=== PATIENT | female | born 1995 | race African-American/Black ===

== ENCOUNTER 2016-06-07 20:35 | Emergency (ER) | payer SELFPAY ==
[2016-06-07 21:01] LABS: Hematocrit 31.7 % (36.0-47.0)
--- NOTE | 2016-06-07 22:27 | ERRECORD ---
[facility] EMERGENCY RECORD HPI ABDOMINAL PAIN (20:47 BPIC) CHIEF COMPLAINTS: Patient presents for evaluation of abdominal pain. HISTORIAN: History provided by patient, pt with chronic abdominal pain who recently had a "stomach flu" since then she has been alternating between diarrhea and constipation and states that her stool now is mostly blood. mild abdominal cramping. no vomiting currently. ROS (20:48 BPIC) CONSTITUTIONAL: Negative constitutional review of systems. EYES: Negative eye review of systems. ENT: Negative ears, nose, throat review of systems. CARDIOVASCULAR: Negative cardiovascular review of systems. RESPIRATORY: Negative respiratory review of systems. GI: Historian reports abdominal pain, reports hematochezia. MUSCULOSKELETAL: Negative musculoskeletal review of systems. SKIN: Negative skin review of systems. PSYCHIATRIC: Negative psychiatric review of systems. NOTES: All other ROS is negative except as listed in HPI. PAST MEDICAL HISTORY MEDICAL HISTORY: Past medical history includes pulmonary disease, chronic bronchitis. Past medical history includes hematological history, iron deficiency anemia,. Renal problems with surgery done at 8 months of age (bladder was on outside when I was born). Has frequent UTIs. One with delivery. Reviewed with patient 06/07/16. (20:50 LKRC) FEMALE SURGICAL HISTORY: Surgical history of section, Date of surgery 2012. Bladder reconstruction surgery at 8 months old. Reviewed with patient 06/07/16. (20:50 LKRC) PSYCHIATRIC HISTORY: Psychiatric history includes, anxiety, depression. (20:50 LKRC) SOCIAL HISTORY: Patient denies alcohol use, Patient denies drug use, Patient has no smoking history, Lives at home, with family. (20:50 LKRC) NOTES: I have reviewed and agree with the PMH/PSxH/FamHx/SocHx obtained by the nurse. (20:48 BPIC) KNOWN ALLERGIES Benadryl: Source: Patient, - CAUSES ANXIETY, FEELS LIKE SHE CAN'T BREATHE No Known Drug Allergies (Unconfirmed) CURRENT MEDICATIONS PROzac: CAPSULE : Strength - 20 mg : ORAL Patient Dose: 20 mg Oral once a day. (20:45 LKRC) calcium: &a-1R&a+25V*p+0X*c6517V*c202B*c15G*c2P*p-0X&a-25V&a+1R Name: Lou Olmos : 1995 F20 MedRec: [id number] AcctNum: [id number] Prepared: SunJun 08, 2016 03:39 by Interface Page 1 of 3 pMD [facility] EMERGENCY RECORD TABLET : Strength - 150 mg : ORAL Patient Dose: UNK Oral once a day.OTC. (20:45 LK) iron: TABLET : Strength - 325 mg (65 mg iron) : ORAL Patient Dose: UNK Oral once a day.OTC. (20:46 LKRC) albuterol: AEROSOL (GRAM) : Strength - 90 mcg : INHALATION Patient Dose: 2 puff(s) Inhaler As Needed. (20:46 LK) VITAL SIGNS VITAL SIGNS: BP: 122/73, Pulse: 95, Resp: 16, Temp: 97.9 (Oral), Pain: 8 (Constant), O2 sat: 100 on Room Air, Time: 06/07/2016 20:42. (20:42 LK) BP: 118/71, Pulse: 85, Resp: 18, Temp: 98.1 (Oral), Pain: 8, O2 sat: 100 on Room Air, Time: 06/07/2016 21:20. (21:20 DOEC) PHYSICAL EXAM (20:48 BPIC) CONSTITUTIONAL: Vital signs reviewed, Patient afebrile, Pulse normal, Blood pressure normal, Respiratory rate normal, Patient appears non toxic, Patient appears pain free, Patient alert and oriented to person, place and time. HEAD: Head exam included findings of head atraumatic, normocephalic. EYES: Eye exam included findings of eyelids normal to inspection, Pupils equally round and reactive to light, Extraocular muscles intact. ENT: ENT exam normal. NECK: Neck exam included findings of normal range of motion, Trachea midline. RESPIRATORY CHEST: Respiratory exam included findings of no respiratory distress, Breath sounds clear. CARDIOVASCULAR: Cardiovascular exam included findings of heart rate regular rate and rhythm, Heart sounds normal. NEURO: Neuro exam findings include patient oriented to person, place and time, Speech normal. PSYCHIATRIC: Psychiatric exam included findings of patient oriented to person place and time, Normal affect. DOCTOR NOTES TEXT: H/H ordered. if this is normal, will give gi consult for hematochezia. I discussed the diagnosis with the patient prior to discharge. All questions were answered. There is no indication for admission currently and the patient will follow up with his primary care physician. Any pertinent labs or imaging was reviewed and dicussed with the patient. If any new or emergent symptoms occur, the patient will return to the emergency department. (20:49 BPIC) hgb 9.3; previous hgb in system range from 9.5 to 11. VSS plan to dc with gi or pcp follow up. (21:10 BPIC) &a-1R&a+25V*p+0X*b2389O*c202B*c15G*c2P*p-0X&a-25V&a+1R Name: Lou Olmos : 1995 F20 MedRec: [id number] AcctNum: [id number] Prepared: SunJun 08, 2016 03:39 by Interface Page 2 of 3 pMD [facility] EMERGENCY RECORD PROBLEM LIST No recorded problems DIAGNOSIS (21:09 BPIC) FINAL: PRIMARY: chronic anemia, ADDITIONAL: hematochezia. PRESCRIPTION No recorded prescriptions DISPOSITION PATIENT: Disposition Type: Discharge, Disposition: *Discharge Home, Condition: Good. (21:09 BPIC) Patient left the department. (21:21 DOEC) Fuentes: BPIC=MD Ally, Fam DOEC=BRIELLE Marcelino, Redd LKRC=BRIELLE Schafer, Lyndsay &a-1R&a+25V*p+0X*b6746C*c202B*c15G*c2P*p-0X&a-25V&a+1R Name: Lou Olmos Singh : 1995 F20 MedRec: [id number] AcctNum: [id number] Prepared: SunJun 08, 2016 03:39 by Interface Page 3 of 3 pMD MTDD
--- NOTE | 2016-06-07 22:35 | PICIS ---
[facility] EMERGENCY RECORD TRIAGE (SunJun 07, 2016 20:43 LKRC) TRIAGE NOTES: LARGE AMOUNTS OF RECTAL BLEEDING MULTIPLE TIMES TODAY. C/O CONSTANT LOWER ABD PAIN. (SunJun 07, 2016 20:43 LKRC) PATIENT: NAME: Lou Olmos, AGE: 20, GENDER: female, : Sat 1995, TIME OF GREET: SunJun 07, 2016 20:36, PREFERRED LANGUAGE: Andorran, ETHNICITY: Not or , ECODE BILLING MAP: [facility] ER, SSN: [id number], Zip Code: [address], PHONE: , , , PERSON ID: [id number], PCP: Mic Charles /Milla. (SunJun 07, 2016 20:43 LKRC) KG WEIGHT: 42.6 (est.). (20:51 LKRC) COMPLAINT: ABDOMINAL PAIN. (SunJun 07, 2016 20:43 LKRC) ADMISSION: URGENCY: 3 Urgent, ADMISSION SOURCE: Home, TRANSPORT: CAR, BED: ER -05. (SunJun 07, 2016 20:43 LKRC) ASSESSMENT: Symptoms began 05/30/2016. (20:50 LKRC) PAIN: Patient complains of pain described as, cramping, sharp, Location LOWER ABDOMEN, Pain is constant. (20:50 LKRC) IMMUNIZATIONS: Flu vaccine not up to date, Tetanus immunization up to date. (20:50 LK[facility]) SIRS SCORING: Heart Rate 55-109 (0), Temp range 96.8-101.1 (0), respiratory rate 12-24 (0), Mental Status altered: no (0). (20:50 LKRC) TRIAGE SCREENING: Patient denies suicidal ideation, Patient denies presence of domestic violence. (20:50 LKRC) LMP: Last menstrual period: 05/11/2015. (20:50 LK[facility]) TREATMENTS IN PROGRESS: Treatments given Prehospital: 400MG IBUPROFEN @ 16:00. (20:50 LKRC) PROVIDERS: TRIAGE NURSE: Lyndsay Schafer RN. (SunJun 07, 2016 20:43 LK[facility]) VITAL SIGNS: BP 122/73, Pulse 95, Resp 16, Temp 97.9, (Oral), Pain 8, (Constant), O2 Sat 100, on Room Air, Time 06/07/2016 20:42. (20:42 [facility]) PREVIOUS VISIT ALLERGIES: Benadryl. (SunJun 07, 2016 20:43 [facility]) Benadryl. (20:50 [facility]) KNOWN ALLERGIES Benadryl: Source: Patient, - CAUSES ANXIETY, FEELS LIKE SHE CAN'T BREATHE No Known Drug Allergies (Unconfirmed) CURRENT MEDICATIONS PROzac: CAPSULE : Strength - 20 mg : ORAL Patient Dose: 20 mg Oral once a day. (20:45 [facility]) calcium: TABLET : Strength - 150 mg : ORAL Patient Dose: UNK Oral once a day.OTC. (20:45 [facility]) iron: &a-1R&a+25V*p+0X*c7538B*c202B*c15G*c2P*p-0X&a-25V&a+1R Name: Lou Olmos Singh : 1995 F20 MedRec: [id number] AcctNum: [id number] Prepared: SunJun 07, 2016 21:36 by Interface Page 1 of 5 pMD [facility] EMERGENCY RECORD TABLET : Strength - 325 mg (65 mg iron) : ORAL Patient Dose: UNK Oral once a day.OTC. (20:46 [facility]) albuterol: AEROSOL (GRAM) : Strength - 90 mcg : INHALATION Patient Dose: 2 puff(s) Inhaler As Needed. (20:46 [facility]) VITAL SIGNS VITAL SIGNS: BP: 122/73, Pulse: 95, Resp: 16, Temp: 97.9 (Oral), Pain: 8 (Constant), O2 sat: 100 on Room Air, Time: 06/07/2016 20:42. (20:42 [facility]) BP: 118/71, Pulse: 85, Resp: 18, Temp: 98.1 (Oral), Pain: 8, O2 sat: 100 on Room Air, Time: 06/07/2016 21:20. (21:20 DOEC) NURSING ASSESSMENT: ABDOMEN (20:45 [facility]) CONSTITUTIONAL: Complex assessment performed, Patient arrives ambulatory, Gait steady, History obtained from patient, Patient cooperative, Patient alert, Oriented to person, place and time, Skin warm, Skin dry, Skin normal in color, Mucous membranes pink, Mucous membranes moist, Patient is well-groomed, Patient complains of ABD CRAMPING/RECTAL BLEEDING. PAIN: cramping pain, sharp pain, to the left lower quadrant, to the right lower quadrant, Onset of pain 05/30/2016, constant, on a scale 0-10 patient rates pain as 8. ABDOMEN: Abdomen assessment findings include abdomen symmetrical, no discolorations, Abdomen soft, tender, to the left lower quadrant, to the right lower quadrant, no associated nausea, no associated vomiting, Associated with diarrhea, Associated with constipation, Notes: REPORTS ALTERNATING BETWEEN DIARRHEA AND CONSTIPATION. BEGAN PASSING LARGE AMOUNTS OF BLOOD WITH STOOL APPROX 1 WEEK AGO. STATES IT STARTED BLACK IN COLOR BUT IS NOW DARK RED IN COLOR. LMP: First day last menstrual period, Last period started on 05/11/2016 20:55. NURSING PROCEDURE: DISCHARGE NOTE (21:20 DOEC) DISCHARGE: Patient discharged to home, ambulating without assistance, driving self, unaccompanied, Summary of Care printed/ provided, Patient requested and was provided an electronic copy of Discharge Instructions, Transition record given to patient, Discharge instructions given to patient, Patient treated and evaluated by physician, Notes: Pt verbalized understanding of discharge instructions. Denied any questions. Pt ambulatory to discharge desk. VSS. NAD. BELONGINGS: Belongings and valuables with patient at time of discharge include:, Belongings remain with patient, Valuables remain with patient. NURSING PROCEDURE: LAB DRAW (21:00 [facility]) LAB DRAW: Lab draw indicated for obtaining specimens for &a-1R&a+25V*p+0X*k3720C*c202B*c15G*c2P*p-0X&a-25V&a+1R Name: Lou Olmos : 1995 F20 MedRec: [id number] AcctNum: [id number] Prepared: SunJun 07, 2016 21:36 by Interface Page 2 of 5 pMD [facility] EMERGENCY RECORD evaluation, by venipuncture, from right antecubital, in one attempt, Lab specimens labeled in the presence of the patient and sent to lab, Notes: DRAWN BY BRIELLE MACIAS. FOLLOW-UP: After procedure, dressing applied to site, After procedure, no swelling at site, After procedure, no active bleeding from site. ORDER DETAILS Order Name: Hemoglobin & Hematocrit, Status: Active, Time: 20:47 06/07/2016, User: [facility], - Ordered for: MD Canales Bryan, - Entered by: MD Canales Bryan - SunJun 07, 2016 20:47, - Quantity: 1. HPI ABDOMINAL PAIN (20:47 BPIC) CHIEF COMPLAINTS: Patient presents for evaluation of abdominal pain. HISTORIAN: History provided by patient, pt with chronic abdominal pain who recently had a "stomach flu" since then she has been alternating between diarrhea and constipation and states that her stool now is mostly blood. mild abdominal cramping. no vomiting currently. ROS (20:48 BPIC) CONSTITUTIONAL: Negative constitutional review of systems. EYES: Negative eye review of systems. ENT: Negative ears, nose, throat review of systems. CARDIOVASCULAR: Negative cardiovascular review of systems. RESPIRATORY: Negative respiratory review of systems. GI: Historian reports abdominal pain, reports hematochezia. MUSCULOSKELETAL: Negative musculoskeletal review of systems. SKIN: Negative skin review of systems. PSYCHIATRIC: Negative psychiatric review of systems. NOTES: All other ROS is negative except as listed in HPI. PAST MEDICAL HISTORY MEDICAL HISTORY: Past medical history includes pulmonary disease, chronic bronchitis. Past medical history includes hematological history, iron deficiency anemia,. Renal problems with surgery done at 8 months of age (bladder was on outside when I was born). Has frequent UTIs. One with delivery. Reviewed with patient 06/07/16. (20:50 [facility]) FEMALE SURGICAL HISTORY: Surgical history of section, Date of surgery 2012. Bladder reconstruction surgery at 8 months old. Reviewed with patient 06/07/16. (20:50 [facility]) PSYCHIATRIC HISTORY: Psychiatric history includes, anxiety, depression. (20:50 [facility]) SOCIAL HISTORY: Patient denies alcohol use, Patient denies drug &a-1R&a+25V*p+0X*e6332B*c202B*c15G*c2P*p-0X&a-25V&a+1R Name: Lou Olmos Singh : 1995 F20 MedRec: [id number] AcctNum: [id number] Prepared: SunJun 07, 2016 21:36 by Interface Page 3 of 5 pMD [facility] EMERGENCY RECORD use, Patient has no smoking history, Lives at home, with family. (20:50 LK) NOTES: I have reviewed and agree with the PMH/PSxH/FamHx/SocHx obtained by the nurse. (20:48 BPIC) PHYSICAL EXAM (20:48 BPIC) CONSTITUTIONAL: Vital signs reviewed, Patient afebrile, Pulse normal, Blood pressure normal, Respiratory rate normal, Patient appears non toxic, Patient appears pain free, Patient alert and oriented to person, place and time. HEAD: Head exam included findings of head atraumatic, normocephalic. EYES: Eye exam included findings of eyelids normal to inspection, Pupils equally round and reactive to light, Extraocular muscles intact. ENT: ENT exam normal. NECK: Neck exam included findings of normal range of motion, Trachea midline. RESPIRATORY CHEST: Respiratory exam included findings of no respiratory distress, Breath sounds clear. CARDIOVASCULAR: Cardiovascular exam included findings of heart rate regular rate and rhythm, Heart sounds normal. NEURO: Neuro exam findings include patient oriented to person, place and time, Speech normal. PSYCHIATRIC: Psychiatric exam included findings of patient oriented to person place and time, Normal affect. EVENTS TRANSFER: Triage to Emergency Emergency Room -05. (20:43 LK) Removed from Emergency Emergency Room -05. (21:21 DOEC) DOCTOR NOTES TEXT: H/H ordered. if this is normal, will give gi consult for hematochezia. I discussed the diagnosis with the patient prior to discharge. All questions were answered. There is no indication for admission currently and the patient will follow up with his primary care physician. Any pertinent labs or imaging was reviewed and dicussed with the patient. If any new or emergent symptoms occur, the patient will return to the emergency department. (20:49 BPIC) hgb 9.3; previous hgb in system range from 9.5 to 11. VSS plan to dc with gi or pcp follow up. (21:10 BPIC) PROBLEM LIST No recorded problems DIAGNOSIS (21:09 BPIC) FINAL: PRIMARY: chronic anemia, ADDITIONAL: hematochezia. &a-1R&a+25V*p+0X*l3974C*c202B*c15G*c2P*p-0X&a-25V&a+1R Name: Lou Olmos : 1995 1 MedRec: [id number] AcctNum: [id number] Prepared: SunJun 07, 2016 21:36 by Interface Page 4 of 5 pMD [facility] EMERGENCY RECORD DISPOSITION PATIENT: Disposition Type: Discharge, Disposition: *Discharge Home, Condition: Good. (21:09 BPIC) Patient left the department. (21:21 DOEC) INSTRUCTION (21:09 BPIC) DISCHARGE: HEMATOCHEZIA STABLE, ANEMIA, IRON DEFICIENCY (ADULT). FOLLOWUP: [facility], [facility], [address] [address], , Jana PAREDES, SARIAH, Gastroenterology, [address] [facility] [address], [facility] [address], [phone]. SPECIAL: Thank you for choosing [facility] Emergency Department for your care today! Please follow up with your primary doctor or a GI specialist in the next few days. Return to the emergency department with any other worsening or emergent symptoms. God bless you!. PRESCRIPTION No recorded prescriptions IMAGING (21:29 DOEC) *DISCHARGE INSTRUCTIONS RECEIPT: Image captured from scanner. *SUPPLY CHARGE SHEET: Image captured from scanner. RESULTS (21:07 BPIC) LABORATORY: Hemoglobin & Hematocrit Collection DT: SunJun 07, 2016 20:57, *Hemoglobin 9.3 - L g/dL, Range (12.0-16.0), *Hematocrit 31.7 - L %, Range (36.0-47.0). Fuentes: BPIC=MD Ally, Fam DOEC=BRIELLE Marcelino, Redd LKRC=BRIELLE Schafer, Lyndsay &a-1R&a+25V*p+0X*c6595T*c202B*c15G*c2P*p-0X&a-25V&a+1R Name: Lou Olmos : 1995 F20 MedRec: [id number] AcctNum: [id number] Prepared: SunJun 07, 2016 21:36 by Interface Page 5 of 5 pMD MTDD
== END 2016-06-07 21:20 | disposition home or self-care (01) ==
LOC: NAV ERS 20:35
DX: D53.9 Nutritional anemia, unspecified (principal); K92.1 Melena; F41.9 Anxiety disorder, unspecified; F32.9 Major depressive disorder, single episode, unspecified; J42 Unspecified chronic bronchitis
CPT/HCPCS: 85014; 85018; 99284

== ENCOUNTER 2016-06-12 18:18 | Emergency (ER) | payer SELFPAY ==
[2016-06-12 19:32] LABS: Bilirubin Negative (Negative); Blood, Urine Negative (Negative); Glucose, Urine (Dipstick) Negative (Negative); Ketone, Urine Negative (Negative); Nitrite Positive (Negative); Protein, Urine (Dipstick) Negative (Neg-Trace); Urobilinogen 0.2 mg/dL (0.2-1.0)
[2016-06-12 19:37] LABS: Bacteria/HPF 4+ HPF (None Seen); RBC/HPF None Seen HPF (0-3); Squamous Epithelial 0-3 HPF (0-3)
[2016-06-12 19:51] LABS: ALT (SGPT) 11 U/L (0-55); AST (SGOT) 17 U/L (5-34); Alkaline Phosphatase 50 U/L (40-150); Anion Gap 10 mmol/L (10-20); BUN (Urea Nitrogen) 8 mg/dL (7.0-18.7); Bilirubin, Total 0.2 mg/dL (0.2-1.2); Calc. Creatinine Clearance 0 mL/min (70-130); Calcium 8.2 mg/dL (7.8-10.44); Carbon Dioxide 25 mmol/L (22-29); Chloride 107 mmol/L (98-107); Estimated GFR-MDRD Greater than 90; Globulin 3.5 g/dL (2.4-3.5); Protein, Total 6.9 g/dL (6.0-8.3)
[2016-06-12 19:54] LABS: Hematocrit 28.6 % (36.0-47.0); Mean Platelet Volume 5.2 fL (7.4-10.4); Red Blood Cell (RBC) Count 4.14 mill/uL (4.20-5.40); White Blood Cell (WBC) Count 7.7 thou/uL (4.8-10.8)
[2016-06-12 19:55] LABS: Anisocytosis SLIGHT = 6-15 cells (100X) (0-5/hpf); Band 2 % (5-11); Elliptocytes SLIGHT = 2-5 cells (100X) (0-1/hpf); Hypochromia SLIGHT = 6-15 cells (100X) (0-5/hpf); Lipase 47 U/L (8-78); Microcytosis SLIGHT = 6-15 cells (100X) (0-5/hpf); Neutrophil 55 % (42-75); Ovalocytes SLIGHT = 2-5 cells (100X) (0-1/hpf); Target Cells SLIGHT = 2-5 cells (100X) (0-1/hpf)
[2016-06-12] MEDS ORDERED: Ketorolac Tromethamine 30 MG/ML VIAL ONE (20:16)
[2016-06-12] MEDS ORDERED: Cipro 250 MG TAB ONE (20:16)
--- NOTE | 2016-06-12 21:20 | ERRECORD ---
[facility] EMERGENCY RECORD HPI ABDOMINAL PAIN (20:17 JLOY) CHIEF COMPLAINTS: Patient presents for evaluation of abdominal pain, Patient presents for evaluation of Pt with 2 days of RLQ pain and dysuria. Pt reports urgency but innability to void x2 days. Pt also reports she is on her cycle currently. Her previous diarrhea has improved. HISTORIAN: History provided by patient. LOCATION FEMALE: Symptoms are localized, most severe in the right lower quadrant. QUALITY: Pain is dull in nature. TIME COURSE: Patient unable to describe onset of symptoms, Symptoms are constant. ASSOCIATED WITH FEMALE: No associated chills, No associated constipation, No associated diarrhea, No associated fever, No associated flank pain, Associated with groin pain, No associated hematemesis, No associated hematuria, No associated nausea, No associated inability to tolerate oral intake, Associated with urinary tract infection signs or symptoms, dysuria, hesitancy, No associated vomiting, Associated with vaginal bleeding. RELIEVED BY: Patient's condition relieved by nothing. EXACERBATED BY: Patient's condition exacerbated by nothing. ROS (20:20 JLOY) CONSTITUTIONAL: Historian denies chills, denies fever. EYES: Historian denies eye pain, denies eye redness, denies eye discharge. ENT: Historian denies rhinorrhea, denies sore throat. CARDIOVASCULAR: Historian denies chest pain. RESPIRATORY: Historian denies cough, denies shortness of breath. GI: Historian reports abdominal pain, denies diarrhea, denies nausea, denies vomiting. GENITOURINARY FEMALE: Historian reports dysuria, denies hematuria, reports hesitancy, reports urgency. NEUROLOGIC: Historian denies dizziness, denies headache. HEMO/LYMPHATIC: Historian reports anemia. PAST MEDICAL HISTORY MEDICAL HISTORY: Past medical history includes pulmonary disease, chronic bronchitis. Past medical history includes hematological history, iron deficiency anemia,. Renal problems with surgery done at 8 months of age (bladder was on outside when I was born). Has frequent UTIs. One with delivery. Reviewed with patient 06/12/16. (18:59 [facility]) FEMALE SURGICAL HISTORY: Surgical history of section, Date of surgery 2012. Bladder reconstruction surgery at 8 months old. Reviewed with patient 06/12/16. (18:59 [facility]) PSYCHIATRIC HISTORY: Psychiatric history includes, anxiety, depression. (18:59 LK) SOCIAL HISTORY: Patient denies alcohol use, Patient denies drug use, Patient has no smoking history, Lives at home, with &a-1R&a+25V*p+0X*l3604P*c202B*c15G*c2P*p-0X&a-25V&a+1R Name: Lou Olmos : 1995 F20 MedRec: [id number] AcctNum: [id number] Prepared: SunJun 12, 2016 23:47 by Interface Page 1 of 3 pMD [facility] EMERGENCY RECORD family. (18:59 [facility]) NOTES: Nursing records reviewed, Agree with nursing records. (20:22 [facility]) KNOWN ALLERGIES Benadryl: Source: Patient No Known Drug Allergies (Unconfirmed) CURRENT MEDICATIONS (18:56 [facility]) PROzac: CAPSULE : Strength - 20 mg : ORAL Patient Dose: 20 mg Oral once a day. calcium: TABLET : Strength - 150 mg : ORAL Patient Dose: UNK Oral once a day.OTC. iron: TABLET : Strength - 325 mg (65 mg iron) : ORAL Patient Dose: UNK Oral once a day.OTC. albuterol: AEROSOL (GRAM) : Strength - 90 mcg : INHALATION Patient Dose: 2 puff(s) Inhaler As Needed. VITAL SIGNS VITAL SIGNS: BP: 123/44, Pulse: 104, Resp: 16, Pain: 10 (Constant), O2 sat: 100 on Room Air, Time: 06/12/2016 18:54. (18:54 [facility]) Temp: 97.9 (Oral), Time: 06/12/2016 19:00. (19:00 [facility]) BP: 114/78, Pulse: 91, Resp: 16, Temp: 98.8 (Oral), Pain: 8, O2 sat: 98 on Room Air, Time: 06/12/2016 20:40. (20:40 [facility]) PHYSICAL EXAM (20:21 [facility]) CONSTITUTIONAL: Vital Signs Reviewed, Patient appears non toxic, Patient alert and oriented to person, place and time, pt curled up in the bed crying but able to move without any apparent increase in discomfort. EYES: Eye exam included findings of eyelids normal to inspection, Pupils equally round and reactive to light, Conjunctiva normal. ENT: Pharynx exam normal, Uvula exam normal, Tonsil exam normal, Mouth exam normal, mucous membranes moist. RESPIRATORY CHEST: Respiratory exam included findings of no respiratory distress, Breath sounds clear, No wheezing, No rales, No rhonchi, Chest exam included findings of chest movement symmetrical. CARDIOVASCULAR: Cardiovascular exam included findings of heart rate regular rate and rhythm, Heart sounds normal. ABDOMEN FEMALE: Abdominal exam included findings of abdomen tender, to the right lower quadrant, moderate intensity, Bowel sounds normal, Liver normal, Spleen normal, no distension, no peritoneal signs, no rigidity, no guarding, no rebound. BACK: Back exam included findings of normal inspection, no &a-1R&a+25V*p+0X*d9634T*c202B*c15G*c2P*p-0X&a-25V&a+1R Name: Lou Olmos : 1995 F20 MedRec: [id number] AcctNum: [id number] Prepared: SunJun 12, 2016 23:47 by Interface Page 2 of 3 pMD [facility] EMERGENCY RECORD costovertebral angle tenderness. UPPER EXTREMITY: Upper extremity exam included findings of inspection normal, Radial pulse normal, no cyanosis, no clubbing, no edema. LOWER EXTREMITY: Lower extremity exam included findings of inspection normal, no edema, no calf tenderness. NEURO: Medardo coma scale 15, Neuro exam findings include patient oriented to person, place and time, Speech normal. SKIN: Skin exam included findings of skin warm, dry, and normal in color, no rash. PSYCHIATRIC: Affect, tearful. MEDICATION ADMINISTRATION SUMMARY Drug Name: Toradol intramuscular, Dose Ordered: 30 mg, Route: Intramuscular, Status: Given, Time: 20:21 06/12/2016, Drug Name: ciprofloxacin HCl oral, Dose Ordered: 250 mg, Route: Oral, Status: Given, Time: 20:20 06/12/2016, Detailed record available in Medication Service section. PROBLEM LIST No recorded problems DIAGNOSIS (20:16 JL) FINAL: PRIMARY: UTI. PRESCRIPTION (20:12 JL) ciprofloxacin HCl oral: TABLET : 250 mg : ORAL : Quantity: 250 Unit: mg Route: ORAL Schedule: 2 times a day Dispense: 5 days May substitute. Refills: No Refills . NOTES: No Refills. DISPOSITION PATIENT: Disposition Type: Discharge, Disposition: *Discharge Home. (20:16 OLGA LIDIA) Patient left the department. (20:44 KARTIK) Fuentes: OLGA LIDIA=MD Kurt, Reggie VERDUGO=BRIELLE Schafer, Lyndsay &a-1R&a+25V*p+0X*b9331M*c202B*c15G*c2P*p-0X&a-25V&a+1R Name: Lou Olmos : 1995 F20 MedRec: [id number] AcctNum: [id number] Prepared: SunJun 12, 2016 23:47 by Interface Page 3 of 3 pMD MTDD
--- NOTE | 2016-06-12 21:25 | PICIS ---
[facility] EMERGENCY RECORD TRIAGE (18:56 LK) TRIAGE NOTES: SHARP, ACHING RLQ PAIN X2 DAYS, RADIATES INTO VAGINAL AREA. STATES SHE HAS NOT BEEN ABLE TO URINATE IN 2 DAYS. (18:56 LK) PATIENT: NAME: Lou Olmos, AGE: 20, GENDER: female, : Sat 1995, TIME OF GREET: SunJun 12, 2016 18:20, PREFERRED LANGUAGE: Kiswahili, ETHNICITY: Not or , ECODE BILLING MAP: [facility] ER, SSN: [id number], Zip Code: [address], PHONE: , , , PERSON ID: [id number], PCP: Mic Charles /Milla. (18:56 LK) KG WEIGHT: 42.6 (est.). (19:31 LKRC) COMPLAINT: RT SIDE PAIN ABD TO VAGINAL AREA,2 DAYS,WEAKNESS. (18:56 LK) ADMISSION: URGENCY: 4 Non Urgent, ADMISSION SOURCE: Home, TRANSPORT: CAR, BED: ER -05. (18:56 LKRC) ASSESSMENT: Symptoms began 06/10/2016. (18:59 LKRC) PAIN: Patient complains of pain described as, aching, sharp, on a scale 0-10 patient rates pain as 10, Location RIGHT GROIN, Pain is constant. (18:59 LKRC) IMMUNIZATIONS: Flu vaccine not up to date, Tetanus immunization up to date. (18:59 LKRC) SIRS SCORING: Heart Rate 55-109 (0), Temp range 96.8-101.1 (0), respiratory rate 12-24 (0), Mental Status altered: no (0). (18:59 LKRC) TRIAGE SCREENING: Patient denies suicidal ideation, Patient denies presence of domestic violence. (18:59 LKRC) LMP: Last menstrual period: 06/08/2016. (18:59 LKRC) TREATMENTS IN PROGRESS: Treatments given Prehospital: 2 IBUPROFEN @ 1600. (18:59 LKRC) PROVIDERS: TRIAGE NURSE: Lyndsay Schafer RN. (18:56 LK[facility]) VITAL SIGNS: BP 123/44, Pulse 104, Resp 16, Pain 10, (Constant), O2 Sat 100, on Room Air, Time 06/12/2016 18:54. (18:54 [facility]) PREVIOUS VISIT ALLERGIES: Benadryl. (18:56 [facility]) Benadryl. (18:59 [facility]) KNOWN ALLERGIES Benadryl: Source: Patient No Known Drug Allergies (Unconfirmed) CURRENT MEDICATIONS (18:56 [facility]) PROzac: CAPSULE : Strength - 20 mg : ORAL Patient Dose: 20 mg Oral once a day. calcium: TABLET : Strength - 150 mg : ORAL Patient Dose: UNK Oral once a day.OTC. iron: TABLET : Strength - 325 mg (65 mg iron) : ORAL &a-1R&a+25V*p+0X*t0716A*c202B*c15G*c2P*p-0X&a-25V&a+1R Name: Lou Olmos : 1995 F20 MedRec: [id number] AcctNum: [id number] Prepared: SunJun 12, 2016 23:53 by Interface Page 1 of 9 D [facility] EMERGENCY RECORD Patient Dose: UNK Oral once a day.OTC. albuterol: AEROSOL (GRAM) : Strength - 90 mcg : INHALATION Patient Dose: 2 puff(s) Inhaler As Needed. VITAL SIGNS VITAL SIGNS: BP: 123/44, Pulse: 104, Resp: 16, Pain: 10 (Constant), O2 sat: 100 on Room Air, Time: 06/12/2016 18:54. (18:54 [facility]) Temp: 97.9 (Oral), Time: 06/12/2016 19:00. (19:00 [facility]) BP: 114/78, Pulse: 91, Resp: 16, Temp: 98.8 (Oral), Pain: 8, O2 sat: 98 on Room Air, Time: 06/12/2016 20:40. (20:40 [facility]) NURSING ASSESSMENT: GENITOURINARY (19:00 [facility]) CONSTITUTIONAL: Complex assessment performed, Patient arrives ambulatory, Gait steady, History obtained from patient, Patient appears, in distress due to pain, Patient cooperative, Patient alert, Oriented to person, place and time, Skin warm, Skin dry, Skin normal in color, Mucous membranes pink, Mucous membranes moist, Patient is well-groomed, Patient complains of RLQ PAIN, RADIATES DOWN TO VAGINAL AREA. PAIN FEMALE: aching pain, sharp pain, to the right lower quadrant, RIGHT GROIN, Onset of pain 06/10/2016, constant, on a scale 0-10 patient rates pain as 10. GENITOURINARY FEMALE: Associated with urinary complaints, dysuria, PT STATES SHE HAS NOT BEEN ABLE TO VOID IN 2 DAYS, Associated with vaginal bleeding, small amount, Onset of bleedin06/08/2016, PT ON HER MENSTRUAL PERIOD BUT STATES BLEEDING LESS THAN NORMAL. ABDOMEN: Abdomen assessment findings include abdomen symmetrical, no discolorations, Abdomen soft, tender, to the right lower quadrant, Bowel sound normal, no associated nausea, no associated vomiting. NOTES: Notes: PT WAS SEEN IN ED LAST WEEK FOR BLEEDING WITH BM. STATES STILL HAVING BLEEDING FROM RECTUM. HAS APPT AT [place] ON SUNDAY. SAFETY: Cart/Stretcher in lowest position, Call light within reach, Hospital ID band on. NURSING PROCEDURE: DISCHARGE NOTE (20:44 [facility]) DISCHARGE: Patient discharged to home, ambulating without assistance, driving self, unaccompanied, Summary of Care printed/ provided, Discharge instructions given to patient, Simple or moderate discharge teaching performed, by BRIELLE Umana, discharge instructions and prescriptions reviewed with patient using teachback method. instructed pt not to stop taking antibiotic until prescription is complete, even if symptoms have resolved. be sure to drink plenty of fluids., Prescriptions given and instructions on &a-1R&a+25V*p+0X*s6428F*c202B*c15G*c2P*p-0X&a-25V&a+1R Name: Lou Olmos : 1995 F20 MedRec: [id number] AcctNum: [id number] Prepared: SunJun 12, 2016 23:53 by Interface Page 2 of 9 pMD [facility] RECORD side effects given, Name of prescription(s) given: CIPROFLOXACIN, Above person(s) verbalized understanding of discharge instructions and follow-up care. BELONGINGS: Belongings and valuables with patient upon arrival to the Emergency Department include:, Belongings and valuables with patient at time of discharge include:, Belongings remain with patient, Valuables remain with patient. NURSING PROCEDURE: LAB DRAW (19:27 [facility]) LAB DRAW: Lab draw indicated for obtaining specimens for evaluation, Initial lab draw performed, by venipuncture, from left antecubital, in one attempt, Lab specimens labeled in the presence of the patient and sent to lab, Notes: COLLECTED BY BRIELLE WRAE. FOLLOW-UP: After procedure, dressing applied to site, After procedure, no swelling at site, After procedure, no active bleeding from site. NURSING PROCEDURE: URINE COLLECTION (19:25 [facility]) URINE COLLECTION FEMALE: Urine collection indicated for patient unable to void, Urine collected by straight cath, using an 8fr catheter kit, in two attempts, output amount (mL) 40, urine yellow in color, and clear, Specimen collected, labeled in the presence of the patient and sent to lab. ORDER DETAILS Order Name: CATH STRAIGHT ED, Status: Done, Time: 19:23 06/12/2016, User: KARTIK, - Ordered for: MD Hicks Joshua, - Entered by: MD Hicks Joshua - Siri Jun 12, 2016 19:12, - Quantity: 1, Order Name: CBC with Differential, Status: Active, Time: 19:12 06/12/2016, User: OLGA LIDIA, - Ordered for: MD Hicks Joshua, - Entered by: MD Hicks Joshua - Siri Jun 12, 2016 19:12, - Quantity: 1, Order Name: Comprehensive Metabolic Panel, Status: Active, Time: 19:12 06/12/2016, User: OLGA LIDIA, - Ordered for: MD Hicks Joshua, - Entered by: MD Hicks Joshua - Mon Jun 12, 2016 19:12, - Quantity: 1, Order Name: Culture, Urine, Status: Active, Time: 20:17 06/12/2016, User: OLGA LIDIA, - Ordered for: MD Hicks Joshua, - Entered by: MD Hicks Joshua - Mon Jun 12, 2016 20:17, - Quantity: 1, Order Name: Lipase, Status: Active, Time: 19:12 06/12/2016, User: OLGA LIDIA, - Ordered for: MD Hicks Joshua, - Entered by: MD Hciks Joshua - Mon Jun 12, 2016 19:12, &a-1R&a+25V*p+0X*e3587R*c202B*c15G*c2P*p-0X&a-25V&a+1R Name: Lou Olmos : 1995 F20 MedRec: [id number] AcctNum: [id number] Prepared: SunJun 12, 2016 23:53 by Interface Page 3 of 9 D [facility] EMERGENCY RECORD - Quantity: 1, Order Name: Test, Serum (BHCG), Status: Active, Time: 19:12 06/12/2016, User: OLGA LIDIA, - Ordered for: MD Hicks Joshua, - Entered by: MD Hicks Joshua - SunJun 12, 2016 19:12, - Quantity: 1, Order Name: Urinalysis w/ Rflx Microscopic, Status: Active, Time: 19:12 06/12/2016, User: OLGA LIDIA, - Ordered for: MD Hicks Joshua, - Entered by: MD Hicks Joshua - SunJun 12, 2016 19:12, - Quantity: 1. MEDICATION ADMINISTRATION SUMMARY Drug Name: Toradol intramuscular, Dose Ordered: 30 mg, Route: Intramuscular, Status: Given, Time: 20:21 06/12/2016, Drug Name: ciprofloxacin HCl oral, Dose Ordered: 250 mg, Route: Oral, Status: Given, Time: 20:20 06/12/2016, Detailed record available in Medication Service section. MEDICATION SERVICE ciprofloxacin HCl oral: Order: ciprofloxacin HCl oral (ciprofloxacin HCl) - Dose: 250 mg : Oral Ordered by: Reggie Hicks MD Entered by: Reggie Hicks MD SunJun 12, 2016 20:11 , Acknowledged by: Lyndsay Schafer RN SunJun 12, 2016 20:15 Documented as given by: Lyndsay Schafer RN SunJun 12, 2016 20:20 Patient, Medication, Dose, Route and Time verified prior to administration. Amount given: 250MG, Site: Medication administered P.O., Patient appears Awake and alert- acceptable, Correct patient, time, route, dose and medication confirmed prior to administration, Patient advised of actions and side-effects prior to administration, Allergies confirmed and medications reviewed prior to administration. Toradol intramuscular: Order: Toradol intramuscular (ketorolac tromethamine) - Dose: 30 mg : Intramuscular Ordered by: Reggie Hicks MD Entered by: Reggie Hicks MD SunJun 12, 2016 20:14 , Acknowledged by: Lyndsay Schafer RN SunJun 12, 2016 20:15 Documented as given by: Lyndsay Schafer RN SunJun 12, 2016 20:21 Patient, Medication, Dose, Route and Time verified prior to administration. IM medication, Amount given: 30MG, Medication administered to right buttock, Patient appears Awake and alert- acceptable, Correct patient, time, route, dose and medication confirmed prior to administration, Patient advised of actions and side-effects prior to administration, Allergies confirmed and medications reviewed prior to administration. : Follow Up : No signs or symptoms of allergic reaction noted, Decreased pain, Site inspection shows, No swelling at &a-1R&a+25V*p+0X*n3207G*c202B*c15G*c2P*p-0X&a-25V&a+1R Name: Lou Olmos : 1995 F20 MedRec: [id number] AcctNum: [id number] Prepared: SunJun 12, 2016 23:53 by Interface Page 4 of 9 pMD [facility] EMERGENCY RECORD administration site, No drainage at administration site, No bleeding at site, No bruising noted at site. (20:40 [facility]) HPI ABDOMINAL PAIN (20:17 [facility]) CHIEF COMPLAINTS: Patient presents for evaluation of abdominal pain, Patient presents for evaluation of Pt with 2 days of RLQ pain and dysuria. Pt reports urgency but innability to void x2 days. Pt also reports she is on her cycle currently. Her previous diarrhea has improved. HISTORIAN: History provided by patient. LOCATION FEMALE: Symptoms are localized, most severe in the right lower quadrant. QUALITY: Pain is dull in nature. TIME COURSE: Patient unable to describe onset of symptoms, Symptoms are constant. ASSOCIATED WITH FEMALE: No associated chills, No associated constipation, No associated diarrhea, No associated fever, No associated flank pain, Associated with groin pain, No associated hematemesis, No associated hematuria, No associated nausea, No associated inability to tolerate oral intake, Associated with urinary tract infection signs or symptoms, dysuria, hesitancy, No associated vomiting, Associated with vaginal bleeding. RELIEVED BY: Patient's condition relieved by nothing. EXACERBATED BY: Patient's condition exacerbated by nothing. ROS (20:20 JL) CONSTITUTIONAL: Historian denies chills, denies fever. EYES: Historian denies eye pain, denies eye redness, denies eye discharge. ENT: Historian denies rhinorrhea, denies sore throat. CARDIOVASCULAR: Historian denies chest pain. RESPIRATORY: Historian denies cough, denies shortness of breath. GI: Historian reports abdominal pain, denies diarrhea, denies nausea, denies vomiting. GENITOURINARY FEMALE: Historian reports dysuria, denies hematuria, reports hesitancy, reports urgency. NEUROLOGIC: Historian denies dizziness, denies headache. HEMO/LYMPHATIC: Historian reports anemia. PAST MEDICAL HISTORY MEDICAL HISTORY: Past medical history includes pulmonary disease, chronic bronchitis. Past medical history includes hematological history, iron deficiency anemia,. Renal problems with surgery done at 8 months of age (bladder was on outside when I was born). Has frequent UTIs. One with delivery. Reviewed with patient 06/12/16. (18:59 [facility]) FEMALE SURGICAL HISTORY: Surgical history of section, Date of surgery 2012. Bladder reconstruction surgery at 8 months old. Reviewed with patient 06/12/16. (18:59 [facility]) PSYCHIATRIC HISTORY: Psychiatric history includes, anxiety, &a-1R&a+25V*p+0X*x9208K*c202B*c15G*c2P*p-0X&a-25V&a+1R Name: Lou Olmos : 1995 F20 MedRec: [id number] AcctNum: [id number] Prepared: SunJun 12, 2016 23:53 by Interface Page 5 of 9 pMD [facility] EMERGENCY RECORD depression. (18:59 [facility]) SOCIAL HISTORY: Patient denies alcohol use, Patient denies drug use, Patient has no smoking history, Lives at home, with family. (18:59 [facility]) NOTES: Nursing records reviewed, Agree with nursing records. (20:22 JLO[facility]) PHYSICAL EXAM (20:21 JL) CONSTITUTIONAL: Vital Signs Reviewed, Patient appears non toxic, Patient alert and oriented to person, place and time, pt curled up in the bed crying but able to move without any apparent increase in discomfort. EYES: Eye exam included findings of eyelids normal to inspection, Pupils equally round and reactive to light, Conjunctiva normal. ENT: Pharynx exam normal, Uvula exam normal, Tonsil exam normal, Mouth exam normal, mucous membranes moist. RESPIRATORY CHEST: Respiratory exam included findings of no respiratory distress, Breath sounds clear, No wheezing, No rales, No rhonchi, Chest exam included findings of chest movement symmetrical. CARDIOVASCULAR: Cardiovascular exam included findings of heart rate regular rate and rhythm, Heart sounds normal. ABDOMEN FEMALE: Abdominal exam included findings of abdomen tender, to the right lower quadrant, moderate intensity, Bowel sounds normal, Liver normal, Spleen normal, no distension, no peritoneal signs, no rigidity, no guarding, no rebound. BACK: Back exam included findings of normal inspection, no costovertebral angle tenderness. UPPER EXTREMITY: Upper extremity exam included findings of inspection normal, Radial pulse normal, no cyanosis, no clubbing, no edema. LOWER EXTREMITY: Lower extremity exam included findings of inspection normal, no edema, no calf tenderness. NEURO: Medardo coma scale 15, Neuro exam findings include patient oriented to person, place and time, Speech normal. SKIN: Skin exam included findings of skin warm, dry, and normal in color, no rash. PSYCHIATRIC: Affect, tearful. EVENTS TRANSFER: Triage to Emergency Emergency Room -05. (SunJun 12, 2016 18:56 [facility]) Removed from Emergency Emergency Room -05. (20:44 [facility]) PROBLEM LIST No recorded problems DIAGNOSIS (20:16 [facility]) FINAL: PRIMARY: UTI. &a-1R&a+25V*p+0X*y5321H*c202B*c15G*c2P*p-0X&a-25V&a+1R Name: Lou Olmos Singh : 1995 F20 MedRec: [id number] AcctNum: [id number] Prepared: SunJun 12, 2016 23:53 by Interface Page 6 of 9 pMD [facility] EMERGENCY RECORD DISPOSITION PATIENT: Disposition Type: Discharge, Disposition: *Discharge Home. (20:16 [facility]) Patient left the department. (20:44 [facility]) INSTRUCTION (20:17 [facility]) DISCHARGE: UTI CYSTITIS FEMALE ADULT. FOLLOWUP: [facility], /[facility], [address], [facility] [address], , Follow up with Primary Care Physician in 3-4 days. PRESCRIPTION (20:12 [facility]) ciprofloxacin HCl oral: TABLET : 250 mg : ORAL : Quantity: 250 Unit: mg Route: ORAL Schedule: 2 times a day Dispense: 5 days May substitute. Refills: No Refills . NOTES: No Refills. IMAGING (20:47 [facility]) *DISCHARGE INSTRUCTIONS RECEIPT: Image captured from scanner. *SUPPLY CHARGE SHEET: Image captured from scanner. ADMIN (23:40 [facility]) DIGITAL SIGNATURE: MD Hicks Joshua. RESULTS (20:03 [facility]) LABORATORY: Lipase Collection DT: SunJun 12, 2016 19:28, Lipase 47 U/L, Range (8-78). Comprehensive Metabolic Panel Collection DT: SunJun 12, 2016 19:28, Sodium 139 mmol/L, Range (136-145), *Potassium 3.3 - L mmol/L, Range (3.5-5.1), Chloride 107 mmol/L, Range (98-107), Carbon Dioxide 25 mmol/L, Range (22-29), Anion Gap 10 mmol/L, Range (10-20), BUN (Urea Nitrogen) 8 mg/dL, Range (7.0-18.7), Creatinine 0.83 mg/dL, Range (0.6-1.1), Estimated GFR-MDRD Greater than 90 , Reference Range for Estimated GFR: Greater than 90, mL/min/1.73 m2 NOTE: The MDRD equation has not been validated for use, with the elderly (over 70 years of age), women, patients with, serious comorbid condition or persons with extremes of body size, muscle, mass, or nutritional status. , Glucose 94 mg/dL, Range (70-105), Calcium 8.2 mg/dL, Range (7.8-10.44), Bilirubin, Total 0.2 mg/dL, Range (0.2-1.2), Protein, Total 6.9 g/dL, Range (6.0-8.3), NOTE: Plasma values are generally 0.3 to 0.5 g/dL higher &a-1R&a+25V*p+0X*w1653U*c202B*c15G*c2P*p-0X&a-25V&a+1R Name: Lou Olmos : 1995 F20 MedRec: [id number] AcctNum: [id number] Prepared: SunJun 12, 2016 23:53 by Interface Page 7 of 9 pMD [facility] EMERGENCY RECORD than serum values, due to the presence of fibrinogen. , *Albumin 3.4 - L g/dL, Range (3.5-5.0), Globulin 3.5 g/dL, Range (2.4-3.5), *Alb/Glob Ratio 1.0 - L g/dL, Range (1.2-2.2), Alkaline Phosphatase 50 U/L, Range (40-150), AST (SGOT) 17 U/L, Range (5-34), ALT (SGPT) 11 U/L, Range (0-55). CBC with Differential Collection DT: SunJun 12, 2016 19:28, White Blood Cell (WBC) Count 7.7 thou/uL, Range (4.8-10.8), *Red Blood Cell (RBC) Count 4.14 - L mill/uL, Range (4.20-5.40), *Hemoglobin 8.6 - L g/dL, Range (12.0-16.0), *Hematocrit 28.6 - L %, Range (36.0-47.0), *Mean Corpuscular Volume 69.2 - L fl, Range (81.0-99.0), *Mean Corpuscular Hemoglobin 20.8 - L pg, Range (27.0-31.0), *Mean Corpuscular HGB CONC 30.1 - L g/dL, Range (32.0-36.0), *RBC Distribution Width 16.1 - H %, Range (11.5-14.5), Platelet Count 347 thou/uL, Range (130-400), *Mean Platelet Volume 5.2 - L fL, Range (7.4-10.4), Neutrophil 55 %, Range (42-75), *Band 2 - L %, Range (5-11), Lymphocytes 27 %, Range (21-51), *Monocytes 11 - H %, Range (0-10), Eosinophils 4 %, Range (0-10), Basophils 1 %, Range (0-2), Anisocytosis SLIGHT = 6-15 cells (100X), Range (0-5/hpf), Microcytosis SLIGHT = 6-15 cells (100X), Range (0-5/hpf), Hypochromia SLIGHT = 6-15 cells (100X), Range (0-5/hpf), Target Cells SLIGHT = 2-5 cells (100X), Range (0-1/hpf), Ovalocytes SLIGHT = 2-5 cells (100X), Range (0-1/hpf), Elliptocytes SLIGHT = 2-5 cells (100X), Range (0-1/hpf), PLT Morphology Comment Appears Adequate . Test, Serum (BHCG) Collection DT: SunJun 12, 2016 19:28, BHCG - Serum NEGATIVE , Range (NEGATIVE), Method of sensitivity- Indeterminant: results should be repeated, after 48 hours. Positive: results may be detected as early as 4-5 days before a first missed menses. Elimination of BHCG-, Elimination following first trimester D&C: 29-44 Days , Elimination following term : 8-24 Days . Urine Microscopic Collection DT: SunJun 12, 2016 19:28, RBC/HPF None Seen HPF, Range (0-3), *WBC/HPF 4-6 - H HPF, Range (0-3), Squamous Epithelial 0-3 HPF, Range (0-3), *Bacteria/HPF 4+ - H HPF, Range (None Seen). &a-1R&a+25V*p+0X*v4952O*c202B*c15G*c2P*p-0X&a-25V&a+1R Name: Lou Olmos Singh : 1995 F20 MedRec: [id number] AcctNum: [id number] Prepared: SunJun 12, 2016 23:53 by Interface Page 8 of 9 pMD [facility] EM[facility]GENC[facility] RECORD Urinalysis w/ Rflx Microscopic Collection DT: SunJun 12, 2016 19:28, Color Yellow , Range (Yellow), Clarity Hazy , Range (Clear), Specific [place], Urine 1.015 , Range (1.005-1.030), pH, Urine 7.0 , Range (5.0-9.0), *Leukocyte Trace - H , Range (Negative), *Nitrite Positive - H , Range (Negative), Protein, Urine (Dipstick) Negative mg/dL, Range (Neg-Trace), Glucose, Urine (Dipstick) Negative mg/dL, Range (Negative), Ketone, Urine Negative mg/dL, Range (Negative), Urobilinogen 0.2 mg/dL, Range (0.2-1.0), Bilirubin Negative , Range (Negative), Blood, Urine Negative , Range (Negative). Fuentes: OLGA LIDIA=MD Kurt, Reggie GONZALESRC=BRIELLE Schafer, Lyndsay &a-1R&a+25V*p+0X*r3939A*c202B*c15G*c2P*p-0X&a-25V&a+1R Name: Lou Olmos Singh : 1995 F20 MedRec: [id number] AcctNum: [id number] Prepared: SunJun 12, 2016 23:53 by Interface Page 9 of 9 pMD [facility] MEDICATION RECONCILIATION You were seen in the Emergency Department on: SunJun 12, 2016 KNOWN ALLERGIES Benadryl: Source: Patient No Known Drug Allergies (Unconfirmed) MEDICATIONS GIVEN WHILE IN THE EMERGENCY DEPARTMENT ciprofloxacin HCl oral (ciprofloxacin HCl) - Dose: 250 milligram(s) : Oral Toradol intramuscular (ketorolac tromethamine) - Dose: 30 milligram(s) : Intramuscular HOME MEDICATIONS CONTINUE PRESCRIBED albuterol : AEROSOL (GRAM) : Strength - 90 mcg : INHALATION Continue as prescribed Patient had been takin puff(s) Inhaler As Needed. calcium : TABLET : Strength - 150 mg : ORAL Continue as prescribed Patient had been taking: UNK Oral once a day. Comment: OTC. iron : TABLET : Strength - 325 mg (65 mg iron) : ORAL Continue as prescribed Patient had been taking: UNK Oral once a day. Comment: OTC. PROzac : CAPSULE : Strength - 20 mg : ORAL Continue as prescribed Patient had been takin mg Oral once a day. PRESCRIPTIONS (1) &a-1R&a+25V*p+0X*u5353M*c202B*c15G*c2P*p-0X&a-25V&a+1R Name: Lou Olmos : 1995 F20 MedRec: [id number] AcctNum: [id number] Prepared: SunJun 12, 2016 23:53 by Interface pMD MTDD
== END 2016-06-12 20:44 | disposition home or self-care (01) ==
LOC: NAV ERS 18:18
DX: N39.0 Urinary tract infection, site not specified (principal); F32.9 Major depressive disorder, single episode, unspecified; F41.9 Anxiety disorder, unspecified
CPT/HCPCS: 51701; 80053; 81003; 81015; 83690; 84703; 85025; 87077; 87086; 87186; 96372; A4353; J1885

== ENCOUNTER 2016-07-04 18:14 | Emergency (ER) | payer OTHER, SELFPAY ==
--- NOTE | 2016-07-04 19:08 | ERRECORD ---
[facility] EMERGENCY RECORD HPI GENERAL (SunJul 05, 2016 00:40 AGRE) CHIEF COMPLAINT: Patient presents for evaluation of PATIENT LEFT WITHOUT TRIAGE. KNOWN ALLERGIES Benadryl (Unconfirmed): Source: Patient No Known Drug Allergies (Unconfirmed) CURRENT MEDICATIONS No recorded medications PROBLEM LIST No recorded problems DIAGNOSIS (18:57 JPAR) FINAL: PRIMARY: left without being triaged. PRESCRIPTION No recorded prescriptions DISPOSITION (18:57 JPAR) PATIENT: Disposition Type: Eloped, Disposition: Left Without Triage, Patient left the department. Fuentes: AGRE=MD Torres, Jerome JPAR=Todd, BRIELLE, Alejo &a-1R&a+25V*p+0X*t8602A*c202B*c15G*c2P*p-0X&a-25V&a+1R Name: Lou Olmos : 1995 F20 MedRec: [id number] AcctNum: [id number] Prepared: SunJul 05, 2016 00:46 by Interface Page 1 of 1 pMD MTDD
--- NOTE | 2016-07-04 19:10 | PICIS ---
[facility] EMERGENCY RECORD TRIAGE (SunJul 04, 2016 18:55 JPAR) PATIENT: NAME: Lou Olmos, AGE: 20, GENDER: female, : Sun1995, TIME OF GREET: SunJul 04, 2016 18:14, PREFERRED LANGUAGE: Romanian, RACE: Black or , ETHNICITY: Not or , ECODE BILLING MAP: [facility], SSN: [id number], Zip Code: [address], KG WEIGHT: 40.82, PHONE: , , , PERSON ID: [id number], PCP: [facility]. TRIAGE NOTES: left without triage. COMPLAINT: BACK PAIN,VAGINAL BLEEDING. ADMISSION: URGENCY: Left Before Triage, ADMISSION SOURCE: Home, TRANSPORT: Walk-in, BED: TRIAGE. PROVIDERS: TRIAGE NURSE: Alejo Brooks RN. PREVIOUS VISIT ALLERGIES: Benadryl. KNOWN ALLERGIES Benadryl (Unconfirmed): Source: Patient No Known Drug Allergies (Unconfirmed) CURRENT MEDICATIONS No recorded medications HPI GENERAL (SunJul 05, 2016 00:40 AGRE) CHIEF COMPLAINT: Patient presents for evaluation of PATIENT LEFT WITHOUT TRIAGE. EVENTS TRANSFER: Triage to Emergency Triage. (SunJul 04, 2016 18:55 JPAR) Removed from Emergency Triage. (18:57 JPAR) PROBLEM LIST No recorded problems DIAGNOSIS (18:57 JPAR) FINAL: PRIMARY: left without being triaged. DISPOSITION (18:57 JPAR) PATIENT: Disposition Type: Eloped, Disposition: Left Without Triage, Patient left the department. PRESCRIPTION No recorded prescriptions ADMIN (SunJul 05, 2016 00:40 AGRE) DIGITAL SIGNATURE: MD Macdonald Andrea. Fuentes: ALENA=MD Macdonald Andrea JPAR=BRIELLE Brooks, Alejo &leila-1R&a+25V*p+0X*[id number]*c202B*c15G*c2P*p-0X&a-25V&a+1R Name: Lou Olmos : 1995 F20 MedRec: [id number] AcctNum: [id number] Prepared: Wed Jul 05, 2016 00:53 by Interface Page 1 of 1 pMD DARRELL
== END 2016-07-04 18:55 | disposition home or self-care (01) ==
LOC: NAV ERS 18:14
DX: Z53.21 Procedure and treatment not carried out due to patient leaving prior to being seen by health care provider (principal)

== ENCOUNTER 2016-07-05 21:52 | Emergency (ER) | payer SELFPAY ==
[2016-07-05 22:23] LABS: Bilirubin Negative (Negative); Blood, Urine Large (Negative); Glucose, Urine (Dipstick) Negative (Negative); Ketone, Urine Negative (Negative); Nitrite Positive (Negative); Protein, Urine (Dipstick) 30 mg/dL (Neg-Trace); Urobilinogen 0.2 mg/dL (0.2-1.0)
[2016-07-05 22:29] LABS: Bacteria/HPF 3+ HPF (None Seen); WBC/HPF 21-50 HPF (0-3)
[2016-07-05] MEDS ORDERED: Sulfameth/Trimethoprim DS 800-160mg TAB ONE (22:30)
[2016-07-05] MEDS ORDERED: traMADol HCl 50 MG TAB ONE (22:30)
[2016-07-05] MEDS ORDERED: Ibuprofen 200 MG TAB ONE ×2 (22:30)
== END 2016-07-05 22:56 | disposition home or self-care (01) ==
LOC: NAV ERS 21:52
DX: N39.0 Urinary tract infection, site not specified (principal); N76.0 Acute vaginitis; F41.9 Anxiety disorder, unspecified; F32.9 Major depressive disorder, single episode, unspecified; Z79.899 Other long term (current) drug therapy
CPT/HCPCS: 81003; 81015; 81025; 99283

== ENCOUNTER 2016-07-15 22:08 | Emergency (ER) | payer SELFPAY ==
[2016-07-15] MEDS ORDERED: Ondansetron ODT 4 MG TAB ONE (22:24)
[2016-07-15] MEDS ORDERED: Ibuprofen 200 MG TAB ONE (22:24)
[2016-07-15] MEDS ORDERED: Acetaminophen 325 MG TAB ONE (23:09)
== END 2016-07-15 23:24 | disposition home or self-care (01) ==
LOC: NAV ERS 22:08
DX: B34.9 Viral infection, unspecified (principal); F41.9 Anxiety disorder, unspecified; F32.9 Major depressive disorder, single episode, unspecified; Z79.899 Other long term (current) drug therapy
CPT/HCPCS: 99283; Q0162

== ENCOUNTER 2016-08-10 19:25 | Emergency (ER) | payer SELFPAY ==
[2016-08-10 20:48] LABS: Bilirubin Negative (Negative); Blood, Urine Small (Negative); Clarity Clear (Clear); Glucose, Urine (Dipstick) Negative (Negative); Leukocyte Small (Negative); Nitrite Negative (Negative); Protein, Urine (Dipstick) Negative (Neg-Trace); Urobilinogen 0.2 mg/dL (0.2-1.0); pH, Urine 6.5 (5.0-9.0)
[2016-08-10 20:54] LABS: Pregu Control Bar Appear? YES (CONTROL BAR)
[2016-08-10 20:58] LABS: #Basophils 0.1 thou/uL (0.0-0.2); #Eosinphils 0.2 thou/uL (0.0-0.7); #Lymphocytes 2.7 thou/uL (1.20-3.40); #Monocytes 0.7 thou/uL (0.11-0.59); #Neutrophils 2.9 thou/uL (1.40-6.50); %Eosinophils 3.7 % (0.0-10.0); %Lymphocytes 40.8 % (21.0-51.0); %Monocytes 10.1 % (0.0-10.0); %Neutrophils 44.4 % (42.0-75.0); Hemoglobin 9.8 g/dL (12.0-16.0); Mean Corpuscular HGB CONC 29.4 g/dL (32.0-36.0); Mean Corpuscular Hemoglobin 19.8 pg (27.0-31.0); Mean Corpuscular Volume 67.4 fl (81.0-99.0); Mean Platelet Volume 6.7 fL (7.4-10.4); Platelet Count 416 thou/uL (130-400); RBC Distribution Width 15.2 % (11.5-14.5); Red Blood Cell (RBC) Count 4.93 mill/uL (4.20-5.40); White Blood Cell (WBC) Count 6.6 thou/uL (4.8-10.8)
[2016-08-10 21:01] LABS: Bacteria/HPF 2+ HPF (None Seen); RBC/HPF None Seen HPF (0-3); Squamous Epithelial 0-3 HPF (0-3)
== END 2016-08-10 21:26 | disposition home or self-care (01) ==
LOC: NAV ERS 19:25
DX: N30.90 Cystitis, unspecified without hematuria (principal); N93.8 Other specified abnormal uterine and vaginal bleeding; F41.9 Anxiety disorder, unspecified; F32.9 Major depressive disorder, single episode, unspecified
CPT/HCPCS: 81003; 81015; 81025; 85025; 99284; A4353

== ENCOUNTER 2016-08-16 23:48 | Emergency (ER) | payer SELFPAY ==
[2016-08-17 00:17] LABS: Bilirubin Negative (Negative); Blood, Urine Negative (Negative); Clarity Hazy (Clear); Glucose, Urine (Dipstick) Negative (Negative); Leukocyte Small (Negative); Nitrite Positive (Negative); Protein, Urine (Dipstick) 30 mg/dL (Neg-Trace); Specific Gravity, Urine 1.015 (1.005-1.030)
[2016-08-17] MEDS ORDERED: Ketorolac Tromethamine 30 MG/ML VIAL ONE (00:17)
[2016-08-17 00:20] LABS: Bacteria/HPF 2+ HPF (None Seen); RBC/HPF None Seen HPF (0-3)
[2016-08-17 00:22] LABS: Pregu Control Bar Appear? YES (CONTROL BAR); Specific Gravity 1.015 (1.002-1.036)
[2016-08-17] MEDS ORDERED: Cipro 250 MG TAB ONE (00:45)
[2016-08-17 17:38] LABS: Chlamydia by PCR Not Detected (NotDetected); GC by PCR Not Detected (NotDetected)
== END 2016-08-17 00:50 | disposition home or self-care (01) ==
LOC: NAV ERS 23:48
DX: N39.0 Urinary tract infection, site not specified (principal); F32.9 Major depressive disorder, single episode, unspecified; F41.9 Anxiety disorder, unspecified
CPT/HCPCS: 81001; 81025; 87077; 87086; 87186; 87491; 87591; 96372; J1885

== ENCOUNTER 2016-08-21 13:51 | Emergency (ER) | payer SELFPAY ==
[2016-08-21] MEDS ORDERED: Nitrofurantoin Macrocrystal 50 MG CAP ONE (14:22)
== END 2016-08-21 14:27 | disposition home or self-care (01) ==
LOC: NAV ERS 13:51
DX: N39.0 Urinary tract infection, site not specified (principal); F41.9 Anxiety disorder, unspecified; F32.9 Major depressive disorder, single episode, unspecified
CPT/HCPCS: 99283

== ENCOUNTER 2016-09-03 22:11 | Emergency (ER) | payer SELFPAY | END 2016-09-03 22:38 | disposition home or self-care (01) | LOC: NAV ERS 22:11 | DX: L73.9 Follicular disorder, unspecified (principal); F41.9 Anxiety disorder, unspecified; F32.9 Major depressive disorder, single episode, unspecified; Z79.899 Other long term (current) drug therapy | CPT/HCPCS: 99283 ==

== ENCOUNTER 2016-09-18 10:22 | Emergency (ER) | payer SELFPAY ==
[2016-09-18] MEDS ORDERED: Ibuprofen 200 MG TAB ONE (11:03)
== END 2016-09-18 11:46 | disposition home or self-care (01) ==
LOC: NAV ERS 10:22
DX: J02.9 Acute pharyngitis, unspecified (principal); F41.9 Anxiety disorder, unspecified; F32.9 Major depressive disorder, single episode, unspecified; Z79.899 Other long term (current) drug therapy
CPT/HCPCS: 87081; 87430; 99283

== ENCOUNTER 2016-09-30 15:13 | Emergency (ER) | payer OTHER, SELFPAY ==
[2016-09-30] MEDS ORDERED: Ondansetron HCl/PF 4 MG/2 ML Vial ONE (15:47)
[2016-09-30 15:57] LABS: Bilirubin Negative (Negative); Blood, Urine Negative (Negative); Clarity Clear (Clear); Glucose, Urine (Dipstick) Negative (Negative); Leukocyte Small (Negative); Nitrite Negative (Negative); Protein, Urine (Dipstick) Negative (Neg-Trace); Urobilinogen 0.2 mg/dL (0.2-1.0)
[2016-09-30 16:00] LABS: Pregnancy Test - Urine (BHCG) NEGATIVE (NEGATIVE); Pregu Control Bar Appear? YES (CONTROL BAR)
[2016-09-30 16:05] LABS: Bacteria/HPF Rare-Few HPF (None Seen); RBC/HPF None Seen HPF (0-3); Squamous Epithelial 0-3 HPF (0-3); WBC/HPF 0-3 HPF (0-3)
[2016-09-30 16:11] LABS: #Basophils 0.1 thou/uL (0.0-0.2); #Eosinphils 0.1 thou/uL (0.0-0.7); #Lymphocytes 2.9 thou/uL (1.20-3.40); #Monocytes 0.5 thou/uL (0.11-0.59); #Neutrophils 3.3 thou/uL (1.40-6.50); %Basophils 1.1 % (0.0-1.0); %Eosinophils 2.1 % (0.0-10.0); %Lymphocytes 41.8 % (21.0-51.0); Hemoglobin 9.1 g/dL (12.0-16.0); Mean Corpuscular HGB CONC 29.2 g/dL (32.0-36.0); Mean Corpuscular Hemoglobin 18.9 pg (27.0-31.0); Mean Corpuscular Volume 64.7 fl (81.0-99.0); Platelet Count 416 thou/uL (130-400); RBC Distribution Width 16.4 % (11.5-14.5); Red Blood Cell (RBC) Count 4.82 mill/uL (4.20-5.40); White Blood Cell (WBC) Count 6.9 thou/uL (4.8-10.8)
[2016-09-30 16:27] LABS: ALT (SGPT) 17 U/L (8-55); AST (SGOT) 42 U/L (5-34); Alkaline Phosphatase 48 U/L (40-150); Anion Gap 17 mmol/L (10-20); BUN (Urea Nitrogen) 14 mg/dL (7.0-18.7); Bilirubin, Total 0.4 mg/dL (0.2-1.2); Calc. Creatinine Clearance 0 mL/min (70-130); Calcium 9.1 mg/dL (7.8-10.44); Carbon Dioxide 18 mmol/L (22-29); Chloride 105 mmol/L (98-107); Estimated GFR-MDRD 86; Globulin 4.6 g/dL (2.4-3.5); Glucose 83 mg/dL (70-105); Potassium 3.7 mmol/L (3.5-5.1); Protein, Total 8.6 g/dL (6.0-8.3); Sodium 136 mmol/L (136-145)
[2016-09-30 16:29] LABS: MDiff Complete? YES; Microcytosis MODERATE=15-30 cells (100X) (0-5/hpf); Ovalocytes SLIGHT = 2-5 cells (100X) (0-1/hpf); Poikilocytosis SLIGHT = 6-15 cells (100X) (0-5/hpf); Schistocytes SLIGHT = 2-5 cells (100X) (0-1/hpf)
== END 2016-09-30 17:15 | disposition home or self-care (01) ==
LOC: NAV ERS 15:13
DX: R19.7 Diarrhea, unspecified (principal); D64.9 Anemia, unspecified; R11.2 Nausea with vomiting, unspecified; F41.9 Anxiety disorder, unspecified; F32.9 Major depressive disorder, single episode, unspecified; Z79.899 Other long term (current) drug therapy
CPT/HCPCS: 36415; 80053; 81003; 81015; 81025; 82274; 85025; 96374; J2405

== ENCOUNTER 2016-10-07 17:55 | Emergency (ER) | payer SELFPAY ==
--- NOTE | 2016-10-07 18:45 | RAD ---
EXAM: RIGHT ANKLE THREE VIEWS 10/07/16 HISTORY: Pain. swelling. Symptoms times several weeks. COMPARISON: None. FINDINGS: Ankle mortise is intact. Joint space is preserved. No fracture. No malalignment. No significant soft tissue swelling. IMPRESSION: Unremarkable right ankle three views. POS: [facility]
== END 2016-10-07 19:05 | disposition home or self-care (01) ==
LOC: NAV ERS 17:55
DX: M25.571 Pain in right ankle and joints of right foot (principal); F41.9 Anxiety disorder, unspecified; F32.9 Major depressive disorder, single episode, unspecified; Z79.899 Other long term (current) drug therapy

== ENCOUNTER 2016-10-18 00:58 | Emergency (ER) | payer SELFPAY ==
[2016-10-18] MEDS ORDERED: Ondansetron ODT 4 MG TAB ONE (01:10)
[2016-10-18 01:57] LABS: Bilirubin Negative (Negative); Blood, Urine Negative (Negative); Glucose, Urine (Dipstick) Negative (Negative); Leukocyte Large (Negative); Nitrite Positive (Negative); Protein, Urine (Dipstick) Negative (Neg-Trace); Specific Gravity, Urine 1.015 (1.005-1.030); Urobilinogen 0.2 mg/dL (0.2-1.0)
[2016-10-18 02:01] LABS: Clarity Hazy (Clear); Pregnancy Test - Urine (BHCG) NEGATIVE (NEGATIVE)
[2016-10-18 02:02] LABS: Pregu Control Bar Appear? YES (CONTROL BAR); Specific Gravity 1.015 (1.002-1.036)
[2016-10-18 02:04] LABS: Bacteria/HPF 3+ HPF (None Seen); RBC/HPF None Seen HPF (0-3)
[2016-10-18] MEDS ORDERED: Cephalexin 500 MG CAP ONE (02:24)
== END 2016-10-18 02:32 | disposition home or self-care (01) ==
LOC: NAV ERS 00:58
DX: N39.0 Urinary tract infection, site not specified (principal); F41.9 Anxiety disorder, unspecified; F32.9 Major depressive disorder, single episode, unspecified; Z79.899 Other long term (current) drug therapy
CPT/HCPCS: 81003; 81015; 81025; 87077; 87086; 87186; 87491; 87591; 99284; Q0162

== ENCOUNTER 2016-11-04 18:24 | Emergency (ER) | payer SELFPAY ==
[2016-11-04] MEDS ORDERED: Ondansetron ODT 4 MG TAB ONE (19:06)
== END 2016-11-04 19:27 | disposition home or self-care (01) ==
LOC: NAV ERS 18:24
DX: J02.9 Acute pharyngitis, unspecified (principal); D64.9 Anemia, unspecified; F41.9 Anxiety disorder, unspecified; F32.9 Major depressive disorder, single episode, unspecified; Z79.899 Other long term (current) drug therapy
CPT/HCPCS: 87081; 87430; 99283; Q0162

== ENCOUNTER 2016-11-10 18:17 | Emergency (ER) | payer SELFPAY ==
[2016-11-10] MEDS ORDERED: Acetaminophen 500 MG TAB ONE (19:11)
[2016-11-10] MEDS ORDERED: Sodium Chloride 0.9% 1,000 ML ONE (19:11)
[2016-11-10] MEDS ORDERED: Benzonatate 100 MG CAP ONE (19:26)
--- NOTE | 2016-11-10 19:30 | RAD ---
TWO VIEWS CHEST 11/10/16 HISTORY: Fever and cough. PA and lateral views of the chest is obtained. The lungs are well aerated. No evidence of active int rathoracic disease seen. No evidence of effusions, pneumonia or pneumothorax seen. IMPRESSION: Normal two views chest. POS: [facility]
[2016-11-10 19:31] LABS: Hemoglobin 8.5 g/dL (12.0-16.0); Mean Corpuscular HGB CONC 29.4 g/dL (32.0-36.0); Mean Corpuscular Hemoglobin 18.9 pg (27.0-31.0); Mean Corpuscular Volume 64.4 fl (81.0-99.0); Mean Platelet Volume 5.4 fL (7.4-10.4); Platelet Count 304 thou/uL (130-400); RBC Distribution Width 16.5 % (11.5-14.5); Red Blood Cell (RBC) Count 4.49 mill/uL (4.20-5.40); White Blood Cell (WBC) Count 8.9 thou/uL (4.8-10.8)
[2016-11-10 19:41] LABS: ALT (SGPT) Less than 6 U/L (8-55); AST (SGOT) 17 U/L (5-34); Albumin 3.7 g/dL (3.5-5.0); Alkaline Phosphatase 61 U/L (40-150); Anion Gap 16 mmol/L (10-20); BUN (Urea Nitrogen) 9 mg/dL (7.0-18.7); Bilirubin, Total 0.3 mg/dL (0.2-1.2); Calc. Creatinine Clearance 0 mL/min (70-130); Calcium 8.7 mg/dL (7.8-10.44); Carbon Dioxide 23 mmol/L (22-29); Chloride 101 mmol/L (98-107); Estimated GFR-MDRD 79; Globulin 4.3 g/dL (2.4-3.5); Glucose 85 mg/dL (70-105); Potassium 3.5 mmol/L (3.5-5.1); Sodium 136 mmol/L (136-145)
[2016-11-10 19:57] LABS: Band 2 % (5-11); Eosinophils 3 % (0-10); Helmet Cells SLIGHT = 2-5 cells (100X) (0-1/hpf); Lymphocytes 52 % (21-51); MDiff Complete? YES; Microcytosis MODERATE=15-30 cells (100X) (0-5/hpf); Monocytes 4 % (0-10); Neutrophil 38 % (42-75); Ovalocytes MODERATE= 6-15 cells (100X) (0-1/hpf); Poikilocytosis SLIGHT = 6-15 cells (100X) (0-5/hpf)
[2016-11-10] MEDS ORDERED: Azithromycin 250 MG TAB ONE (20:30)
== END 2016-11-10 20:40 | disposition home or self-care (01) ==
LOC: NAV ERS 18:17
DX: J06.9 Acute upper respiratory infection, unspecified (principal); D50.9 Iron deficiency anemia, unspecified; F41.9 Anxiety disorder, unspecified; F32.9 Major depressive disorder, single episode, unspecified; Z79.899 Other long term (current) drug therapy
CPT/HCPCS: 71020; 80053; 85025; 96360; J7050

== ENCOUNTER 2016-11-28 11:34 | Emergency (ER) | payer SELFPAY ==
[2016-11-28] MEDS ORDERED: Fluorescein Opthalmic Strip ONE (11:51)
[2016-11-28] MEDS ORDERED: Tetracaine HCl 0.5% Ophth Soln 2 ML Bottle ONE (11:51)
[2016-11-28 11:56] LABS: Bilirubin Negative (Negative); Blood, Urine Negative (Negative); Clarity Clear (Clear); Glucose, Urine (Dipstick) Negative (Negative); Leukocyte Small (Negative); Nitrite Positive (Negative); Protein, Urine (Dipstick) Negative (Neg-Trace); Specific Gravity, Urine 1.015 (1.005-1.030); Urobilinogen 0.2 mg/dL (0.2-1.0)
[2016-11-28 11:58] LABS: Pregnancy Test - Urine (BHCG) Negative (NEGATIVE); Pregu Control Background? CLEAR/WHITE (CLR/WHITE); Pregu Control Bar Appear? YES (CONTROL BAR); Specific Gravity 1.015 (1.002-1.036)
[2016-11-28 12:03] LABS: RBC/HPF None Seen HPF (0-3); Squamous Epithelial 0-3 HPF (0-3)
[2016-11-28 12:04] LABS: Bacteria/HPF 2+ HPF (None Seen); Other Microscopic Description NO
[2016-11-28] MEDS ORDERED: Cephalexin 250 MG CAP ONE (12:16)
[2016-11-28] MEDS ORDERED: Ibuprofen 200 MG TAB ONE (12:16)
[2016-11-28 21:58] LABS: Chlamydia by PCR Not Detected (NotDetected); GC by PCR Not Detected (NotDetected)
== END 2016-11-28 13:02 | disposition home or self-care (01) ==
LOC: NAV ERS 11:34
DX: N39.0 Urinary tract infection, site not specified (principal); D64.9 Anemia, unspecified; F41.9 Anxiety disorder, unspecified; F32.9 Major depressive disorder, single episode, unspecified; Z79.899 Other long term (current) drug therapy
CPT/HCPCS: 81003; 81015; 81025; 87077; 87086; 87186; 87480; 87491; 87510; 87591; 87660; 99284

== ENCOUNTER 2016-12-09 11:47 | Emergency (ER) | payer SELFPAY ==
[2016-12-09 12:02] LABS: Bilirubin Negative (Negative); Blood, Urine Trace (Negative); Clarity Clear (Clear); Glucose, Urine (Dipstick) Negative (Negative); Leukocyte Large (Negative); Nitrite Negative (Negative); Protein, Urine (Dipstick) Negative (Neg-Trace); Specific Gravity, Urine 1.015 (1.005-1.030); Urobilinogen 0.2 mg/dL (0.2-1.0)
[2016-12-09] MEDS ORDERED: Ondansetron ODT 4 MG TAB ONE (12:04)
[2016-12-09 12:09] LABS: Pregnancy Test - Urine (BHCG) Negative (NEGATIVE); Pregu Control Background? CLEAR/WHITE (CLR/WHITE); Pregu Control Bar Appear? YES (CONTROL BAR)
[2016-12-09 12:10] LABS: Specific Gravity 1.015 (1.002-1.036)
[2016-12-09 12:11] LABS: RBC/HPF 0-3 HPF (0-3); Squamous Epithelial 0-3 HPF (0-3); WBC/HPF 21-50 HPF (0-3)
[2016-12-09 12:12] LABS: Bacteria/HPF 2+ HPF (None Seen)
[2016-12-09] MEDS ORDERED: Cephalexin 250 MG CAP ONE (12:23)
== END 2016-12-09 12:27 | disposition home or self-care (01) ==
LOC: NAV ERS 11:47
DX: N39.0 Urinary tract infection, site not specified (principal); D64.9 Anemia, unspecified; F41.9 Anxiety disorder, unspecified; F31.9 Bipolar disorder, unspecified; Z79.899 Other long term (current) drug therapy
CPT/HCPCS: 81003; 81015; 81025; 87077; 87086; 99284; Q0162

== ENCOUNTER 2016-12-24 12:18 | Emergency (ER) | payer SELFPAY ==
[2016-12-24] MEDS ORDERED: Ibuprofen 200 MG TAB ONE (12:31)
== END 2016-12-24 12:46 | disposition home or self-care (01) ==
LOC: NAV ERS 12:18
DX: S30.1XXA Contusion of abdominal wall, initial encounter (principal); D64.9 Anemia, unspecified; F41.9 Anxiety disorder, unspecified; F32.9 Major depressive disorder, single episode, unspecified; Z79.899 Other long term (current) drug therapy; W50.0XXA Accidental hit or strike by another person, initial encounter
CPT/HCPCS: 99283

== ENCOUNTER 2017-01-01 23:34 | Emergency (ER) | payer MEDICAID, SELFPAY ==
[2017-01-01 23:51] LABS: Bilirubin Negative (Negative); Blood, Urine Large (Negative); Clarity Cloudy (Clear); Glucose, Urine (Dipstick) Negative (Negative); Leukocyte Large (Negative); Nitrite Positive (Negative); Protein, Urine (Dipstick) 30 mg/dL (Neg-Trace); Urobilinogen 0.2 mg/dL (0.2-1.0); pH, Urine 7.5 (5.0-9.0)
[2017-01-01 23:54] LABS: Bacteria/HPF 4+ HPF (None Seen); RBC/HPF GREATER THAN 50-TNTC HPF (0-3)
[2017-01-02] MEDS ORDERED: Ketorolac Tromethamine 60 MG/2 ML VIAL ONE (00:11)
[2017-01-02] MEDS ORDERED: cefTRIAXone\\ROCEPHIN 1 GM VIAL ONE (00:11)
[2017-01-02] MEDS ORDERED: Ondansetron ODT 4 MG TAB ONE (00:11)
[2017-01-02] MEDS ORDERED: Lidocaine 1% 20 ML MDV ONE (00:11)
[2017-01-02 00:27] LABS: Pregu Control Background? CLEAR/WHITE (CLR/WHITE); Pregu Control Bar Appear? YES (CONTROL BAR)
[2017-01-02 00:28] LABS: Pregnancy Test - Urine (BHCG) Negative (NEGATIVE)
[2017-01-04 22:47] LABS: Chlamydia by PCR Inconclusive (NotDetected); GC by PCR Inconclusive (NotDetected)
== END 2017-01-02 00:35 | disposition home or self-care (01) ==
LOC: NAV ERS 23:34
DX: N39.0 Urinary tract infection, site not specified (principal); D64.9 Anemia, unspecified; F32.9 Major depressive disorder, single episode, unspecified; F41.9 Anxiety disorder, unspecified; Z79.899 Other long term (current) drug therapy
CPT/HCPCS: 81003; 81015; 81025; 87077; 87086; 87186; 87491; 87591; 96372; J0696; J1885; J2001; Q0162

== ENCOUNTER 2017-01-08 19:09 | Emergency (ER) | payer MEDICAID | END 2017-01-08 19:35 | disposition home or self-care (01) | LOC: NAV ERS 19:09 | DX: O9A.211 Injury, poisoning and certain other consequences of external causes complicating pregnancy, first trimester (principal); S30.1XXA Contusion of abdominal wall, initial encounter; O99.011 Anemia complicating pregnancy, first trimester; O99.341 Other mental disorders complicating pregnancy, first trimester; F41.9 Anxiety disorder, unspecified; F32.9 Major depressive disorder, single episode, unspecified; Z3A.09 9 weeks gestation of pregnancy | CPT/HCPCS: 99283 ==

== ENCOUNTER 2017-01-13 21:00 | Emergency (ER) | payer MEDICAID, SELFPAY ==
[2017-01-13 21:18] LABS: Bilirubin Negative (Negative); Blood, Urine Negative (Negative); Clarity Clear (Clear); Glucose, Urine (Dipstick) Negative (Negative); Leukocyte Small (Negative); Nitrite Negative (Negative); Pregnancy Test - Urine (BHCG) POSITIVE (NEGATIVE); Pregu Control Background? CLEAR/WHITE (CLR/WHITE); Pregu Control Bar Appear? YES (CONTROL BAR); Protein, Urine (Dipstick) > or equal to 300 mg/dL (Neg-Trace); Specific Gravity 1.025 (1.002-1.036); Specific Gravity, Urine 1.025 (1.005-1.030)
[2017-01-13 21:19] LABS: Bacteria/HPF Rare-Few HPF (None Seen); RBC/HPF None Seen HPF (0-3)
[2017-01-13 21:39] LABS: #Eosinphils 0.2 thou/uL (0.0-0.7); #Lymphocytes 1.8 thou/uL (1.20-3.40); #Monocytes 0.3 thou/uL (0.11-0.59); #Neutrophils 2.6 thou/uL (1.40-6.50); %Basophils 0.6 % (0.0-1.0); %Eosinophils 4.2 % (0.0-10.0); %Lymphocytes 36.7 % (21.0-51.0); %Monocytes 6.6 % (0.0-10.0); Anisocytosis MODERATE=16-30 cells (100X) (0-5/hpf); Hemoglobin 7.7 g/dL (12.0-16.0); MDiff Complete? YES; Mean Corpuscular HGB CONC 29.7 g/dL (32.0-36.0); Mean Corpuscular Hemoglobin 19.6 pg (27.0-31.0); Mean Corpuscular Volume 66.2 fl (81.0-99.0); Mean Platelet Volume 5.6 fL (7.4-10.4); Microcytosis MODERATE=15-30 cells (100X) (0-5/hpf); PLT Morphology Comment Appears Adequate; Platelet Count 325 thou/uL (130-400); RBC Distribution Width 17.8 % (11.5-14.5); Red Blood Cell (RBC) Count 3.94 mill/uL (4.20-5.40)
[2017-01-13 21:55] LABS: ALT (SGPT) 12 U/L (8-55); AST (SGOT) 27 U/L (5-34); Albumin 3.4 g/dL (3.5-5.0); Alkaline Phosphatase 49 U/L (40-150); Anion Gap 9 mmol/L (10-20); BUN (Urea Nitrogen) 10 mg/dL (7.0-18.7); Bilirubin, Total 0.2 mg/dL (0.2-1.2); Calc. Creatinine Clearance 0 mL/min (70-130); Calcium 8.4 mg/dL (7.8-10.44); Carbon Dioxide 23 mmol/L (22-29); Chloride 109 mmol/L (98-107); Estimated GFR-MDRD Greater than 90; Globulin 3.6 g/dL (2.4-3.5); Glucose 91 mg/dL (70-105); Potassium 3.2 mmol/L (3.5-5.1); Sodium 138 mmol/L (136-145)
[2017-01-14 19:47] LABS: Chlamydia by PCR Not Detected (NotDetected); GC by PCR Not Detected (NotDetected)
== END 2017-01-13 23:02 | disposition home or self-care (01) ==
LOC: NAV ERS 21:00
DX: O26.851 Spotting complicating pregnancy, first trimester (principal); O99.341 Other mental disorders complicating pregnancy, first trimester; F41.9 Anxiety disorder, unspecified; F32.9 Major depressive disorder, single episode, unspecified; Z3A.10 10 weeks gestation of pregnancy
CPT/HCPCS: 36415; 80053; 81003; 81015; 81025; 84702; 85025; 86900; 86901; 87491; 87591; 99284

== ENCOUNTER 2017-03-29 16:50 | Emergency (ER) | payer OTHER ==
[2017-03-29] MEDS ORDERED: Sodium Chloride 0.9% 1,000 ML ONE (17:49)
[2017-03-29 18:23] LABS: #Eosinphils 0.1 thou/uL (0.0-0.7); #Lymphocytes 1.7 thou/uL (1.20-3.40); #Monocytes 0.8 thou/uL (0.11-0.59); #Neutrophils 11.2 thou/uL (1.40-6.50); %Basophils 0.3 % (0.0-1.0); %Eosinophils 0.8 % (0.0-10.0); %Lymphocytes 12.1 % (21.0-51.0); %Monocytes 5.9 % (0.0-10.0); Hemoglobin 8.2 g/dL (12.0-16.0); Mean Corpuscular HGB CONC 29.2 g/dL (32.0-36.0); Mean Corpuscular Hemoglobin 20.1 pg (27.0-31.0); Mean Corpuscular Volume 68.8 fl (81.0-99.0); Mean Platelet Volume 5.3 fL (7.4-10.4); Platelet Count 401 thou/uL (130-400); RBC Distribution Width 16.3 % (11.5-14.5); Red Blood Cell (RBC) Count 4.06 mill/uL (4.20-5.40); White Blood Cell (WBC) Count 13.8 thou/uL (4.8-10.8)
[2017-03-29 18:35] LABS: Bilirubin Negative (Negative); Blood, Urine Trace (Negative); Clarity Clear (Clear); Glucose, Urine (Dipstick) Negative (Negative); Leukocyte Small (Negative); Nitrite Negative (Negative); Protein, Urine (Dipstick) Negative (Neg-Trace); Urobilinogen 0.2 mg/dL (0.2-1.0); pH, Urine 7.5 (5.0-9.0)
[2017-03-29 18:40] LABS: ALT (SGPT) 14 U/L (8-55); AST (SGOT) 21 U/L (5-34); Albumin 3.5 g/dL (3.5-5.0); Alkaline Phosphatase 60 U/L (40-150); Anion Gap 15 mmol/L (10-20); BUN (Urea Nitrogen) 9 mg/dL (7.0-18.7); Bilirubin, Total 0.2 mg/dL (0.2-1.2); Calc. Creatinine Clearance 0 mL/min (70-130); Calcium 9.2 mg/dL (7.8-10.44); Carbon Dioxide 21 mmol/L (22-29); Chloride 104 mmol/L (98-107); Estimated GFR-MDRD Greater than 90; Globulin 4.9 g/dL (2.4-3.5); Glucose 84 mg/dL (70-105); Potassium 3.8 mmol/L (3.5-5.1); Protein, Total 8.4 g/dL (6.0-8.3); Sodium 136 mmol/L (136-145)
[2017-03-29 18:42] LABS: Bacteria/HPF 2+ HPF (None Seen); RBC/HPF 0-3 HPF (0-3)
[2017-03-29] MEDS ORDERED: Nitrofurantoin Macrocrystal 50 MG CAP ONE (19:22)
[2017-03-29 19:32] LABS: Hypochromia MODERATE=16-30 cells (100X) (0-5/hpf); MDiff Complete? YES; Microcytosis MODERATE=15-30 cells (100X) (0-5/hpf); PLT Morphology Comment Appears Adequate; Poikilocytosis SLIGHT = 6-15 cells (100X) (0-5/hpf); Reflex for Review?? NO
[2017-03-31 20:22] LABS: Chlamydia by PCR Not Detected (NotDetected); GC by PCR Not Detected (NotDetected)
== END 2017-03-29 19:31 | disposition home or self-care (01) ==
LOC: NAV ERS 16:50
DX: O23.42 Unspecified infection of urinary tract in pregnancy, second trimester (principal); O99.342 Other mental disorders complicating pregnancy, second trimester; F41.9 Anxiety disorder, unspecified; F32.9 Major depressive disorder, single episode, unspecified; Z79.899 Other long term (current) drug therapy; Z3A.16 16 weeks gestation of pregnancy
CPT/HCPCS: 80053; 81003; 81015; 85025; 87077; 87086; 87186; 87491; 87591; 96360; J7050

== ENCOUNTER 2017-05-06 19:57 | Emergency (ER) | payer OTHER ==
[2017-05-06 21:03] LABS: Wet Prep Clue Cells Clue Cells Absent (None Seen); Wet Prep Trichomonas Trichomonas Absent (None Seen)
[2017-05-06 21:04] LABS: Wet Prep Spermatozoa 2nd Revie Agree with result (None Seen)
== END 2017-05-06 21:38 | disposition home or self-care (01) ==
LOC: NAV ERS 19:57
DX: O99.89 Other specified diseases and conditions complicating pregnancy, childbirth and the puerperium (principal); N89.8 Other specified noninflammatory disorders of vagina; O99.512 Diseases of the respiratory system complicating pregnancy, second trimester; J02.9 Acute pharyngitis, unspecified; O99.342 Other mental disorders complicating pregnancy, second trimester; F41.9 Anxiety disorder, unspecified; F32.9 Major depressive disorder, single episode, unspecified; Z3A.21 21 weeks gestation of pregnancy
CPT/HCPCS: 87210; 99283

== ENCOUNTER 2017-05-14 13:48 | Emergency (ER) | payer OTHER ==
[2017-05-14 15:13] LABS: Bilirubin Negative (Negative); Blood, Urine Negative (Negative); Clarity Slightly Cloudy (Clear); Glucose, Urine (Dipstick) Negative (Negative); Leukocyte Small (Negative); Nitrite Positive (Negative); Protein, Urine (Dipstick) Negative (Neg-Trace); Specific Gravity, Urine 1.015 (1.005-1.030); Urobilinogen 0.2 mg/dL (0.2-1.0); pH, Urine 6.5 (5.0-9.0)
[2017-05-14 15:22] LABS: Bacteria/HPF 4+ HPF (None Seen); RBC/HPF 0-3 HPF (0-3); Squamous Epithelial 0-3 HPF (0-3)
[2017-05-14] MEDS ORDERED: Amoxicillin/Potassium Clav 875 MG TAB ONE (16:44)
--- NOTE | 2017-05-14 16:54 | ULT ---
LIMITED OBSTETRICAL ULTRASOUND: Date: 05-14-17 Comparison: 03-12-17 History: Contractions, pre-term labor. Evaluate cervical length. Technique: Multiplanar sonographic imaging of the gravid uterus obtained. FINDINGS: There is a single intrauterine gestation present demonstrating a vertex presentation. Cervical length is approximately 3.4 cm, within normal limits. heart rate is 147 beats/minute. Placenta is posteriorly with no evidence for previa or abruption. The laser cutter provides images lab elled right uterus suggesting a bicornuate uterus. This is not well assessed on this exam. IMPRESSION: Intrauterine gestation as detailed above. POS: [facility]
== END 2017-05-14 16:45 | disposition home or self-care (01) ==
LOC: NAV ERS 13:48
DX: O23.42 Unspecified infection of urinary tract in pregnancy, second trimester (principal); O99.342 Other mental disorders complicating pregnancy, second trimester; F41.9 Anxiety disorder, unspecified; F32.9 Major depressive disorder, single episode, unspecified; Z3A.22 22 weeks gestation of pregnancy; Z79.899 Other long term (current) drug therapy
CPT/HCPCS: 76815; 81003; 81015; 87077; 87086; 87186

== ENCOUNTER 2017-05-15 22:24 | Emergency (ER) | payer OTHER ==
[2017-05-15] MEDS ORDERED: Sodium Chloride 0.9% 1,000 ML ONE (23:08)
== END 2017-05-16 00:57 | disposition short-term general hospital (02) ==
LOC: NAV ERS 22:24
DX: O60.00 Preterm labor without delivery, unspecified trimester (principal); F41.9 Anxiety disorder, unspecified; F32.9 Major depressive disorder, single episode, unspecified; Z79.899 Other long term (current) drug therapy
CPT/HCPCS: 99284; J7050

== ENCOUNTER 2017-05-30 21:42 | Emergency (ER) | payer OTHER ==
[2017-05-30] MEDS ORDERED: Nitrazine Tape 1 ROLL ONE (22:02)
== END 2017-05-30 22:28 | disposition home or self-care (01) ==
LOC: NAV ERS 21:42
DX: O99.89 Other specified diseases and conditions complicating pregnancy, childbirth and the puerperium (principal); N89.8 Other specified noninflammatory disorders of vagina; O99.342 Other mental disorders complicating pregnancy, second trimester; F41.9 Anxiety disorder, unspecified; F32.9 Major depressive disorder, single episode, unspecified; Z3A.24 24 weeks gestation of pregnancy
CPT/HCPCS: 87210

== ENCOUNTER 2017-06-13 20:07 | Emergency (ER) | payer OTHER ==
[2017-06-13] MEDS ORDERED: Sodium Chloride 0.9% 1,000 ML ONE (21:32)
== END 2017-06-14 01:25 | disposition short-term general hospital (02) ==
LOC: NAV ERS 20:07
DX: O60.02 Preterm labor without delivery, second trimester (principal); O99.342 Other mental disorders complicating pregnancy, second trimester; F41.9 Anxiety disorder, unspecified; F32.9 Major depressive disorder, single episode, unspecified; Z3A.26 26 weeks gestation of pregnancy
CPT/HCPCS: 96360; J7050

== ENCOUNTER 2017-08-06 15:10 | Emergency (ER) | payer OTHER ==
[2017-08-06 16:27] LABS: Bilirubin Negative (Negative); Blood, Urine Small (Negative); Clarity Clear (Clear); Glucose, Urine (Dipstick) Negative (Negative); Leukocyte Small (Negative); Nitrite Positive (Negative); Protein, Urine (Dipstick) Negative (Neg-Trace); Specific Gravity, Urine 1.015 (1.005-1.030); Urobilinogen 0.2 mg/dL (0.2-1.0); pH, Urine 6.5 (5.0-9.0)
[2017-08-06 16:38] LABS: #Eosinphils 0.1 thou/uL (0.0-0.7); #Lymphocytes 1.5 thou/uL (1.20-3.40); #Monocytes 0.3 thou/uL (0.11-0.59); #Neutrophils 2.8 thou/uL (1.40-6.50); %Basophils 0.7 % (0.0-1.0); %Eosinophils 2.6 % (0.0-10.0); %Lymphocytes 32.2 % (21.0-51.0); %Monocytes 6.2 % (0.0-10.0); %Neutrophils 58.3 % (42.0-75.0); Hemoglobin 11.5 g/dL (12.0-16.0); Mean Corpuscular HGB CONC 29.4 g/dL (32.0-36.0); Mean Corpuscular Hemoglobin 20.5 pg (27.0-31.0); Mean Corpuscular Volume 69.9 fl (81.0-99.0); Mean Platelet Volume 6.1 fL (7.4-10.4); Platelet Count 372 thou/uL (130-400); RBC Distribution Width 19.5 % (11.5-14.5); Red Blood Cell (RBC) Count 5.61 mill/uL (4.20-5.40); White Blood Cell (WBC) Count 4.8 thou/uL (4.8-10.8)
[2017-08-06 16:42] LABS: Bacteria/HPF 3+ HPF (None Seen); RBC/HPF 0-3 HPF (0-3)
[2017-08-06 16:51] LABS: Anion Gap 12 mmol/L (10-20); BUN (Urea Nitrogen) 12 mg/dL (7.0-18.7); Calc. Creatinine Clearance 0 mL/min (70-130); Calcium 10.4 mg/dL (7.8-10.44); Carbon Dioxide 29 mmol/L (22-29); Chloride 104 mmol/L (98-107); Estimated GFR-MDRD Greater than 90; Glucose 86 mg/dL (70-105); Potassium 3.9 mmol/L (3.5-5.1); Sodium 141 mmol/L (136-145)
[2017-08-06 16:56] LABS: Anisocytosis MODERATE=16-30 cells (100X) (0-5/hpf); Hypochromia SLIGHT = 6-15 cells (100X) (0-5/hpf); MDiff Complete? YES; Microcytosis MODERATE=15-30 cells (100X) (0-5/hpf); PLT Morphology Comment Appears Adequate
[2017-08-06] MEDS ORDERED: cefTRIAXone\\ROCEPHIN 1 GM VIAL ONE (17:10)
[2017-08-06] MEDS ORDERED: Lidocaine 1% 20 ML MDV ONE (17:13)
== END 2017-08-06 17:35 | disposition home or self-care (01) ==
LOC: NAV ERS 15:10
DX: G89.18 Other acute postprocedural pain (principal); R10.9 Unspecified abdominal pain; N39.0 Urinary tract infection, site not specified; F41.9 Anxiety disorder, unspecified; F32.9 Major depressive disorder, single episode, unspecified; Z79.891 Long term (current) use of opiate analgesic; Z79.899 Other long term (current) drug therapy
CPT/HCPCS: 80048; 81003; 81015; 85025; 99283; J0696; J2001

== ENCOUNTER 2017-09-10 22:56 | Emergency (ER) | payer OTHER ==
[2017-09-10] MEDS ORDERED: Ketorolac Tromethamine 60 MG/2 ML VIAL ONE (23:17)
== END 2017-09-10 23:30 | disposition home or self-care (01) ==
LOC: NAV ERS 22:56
DX: R10.30 Lower abdominal pain, unspecified (principal); R51 Headache; F41.9 Anxiety disorder, unspecified; F32.9 Major depressive disorder, single episode, unspecified; Z79.891 Long term (current) use of opiate analgesic
CPT/HCPCS: 96372; J1885

== ENCOUNTER 2017-09-21 20:04 | Emergency (ER) | payer OTHER | END 2017-09-21 20:56 | disposition home or self-care (01) | LOC: NAV ERS 20:04 | DX: G89.18 Other acute postprocedural pain (principal); R10.9 Unspecified abdominal pain | CPT/HCPCS: 99283 ==

== ENCOUNTER 2017-10-03 21:33 | Emergency (ER) | payer OTHER ==
[2017-10-03] MEDS ORDERED: Acetaminophen/Codeine 30-300mg Tablet ONE (21:59)
== END 2017-10-03 22:00 | disposition home or self-care (01) ==
LOC: NAV ERS 21:33
DX: K03.81 Cracked tooth (principal); F41.9 Anxiety disorder, unspecified; F32.9 Major depressive disorder, single episode, unspecified
CPT/HCPCS: 99283

== ENCOUNTER 2017-11-09 20:09 | Emergency (ER) | payer OTHER ==
[2017-11-09] MEDS ORDERED: Ketorolac Tromethamine 60 MG/2 ML VIAL ONE (20:38)
== END 2017-11-09 20:52 | disposition home or self-care (01) ==
LOC: NAV ERS 20:09
DX: R10.9 Unspecified abdominal pain (principal); F41.9 Anxiety disorder, unspecified; F32.9 Major depressive disorder, single episode, unspecified; Z79.899 Other long term (current) drug therapy
CPT/HCPCS: 96372; J1885

== ENCOUNTER 2017-11-25 20:37 | Emergency (ER) | payer OTHER ==
[2017-11-25 21:20] LABS: BHCG - Serum Negative (NEGATIVE); Pregs Control Bar Appear? YES (CONTROL BAR)
[2017-11-25 21:22] LABS: Wet Prep Clue Cells Clue Cells Absent (None Seen); Wet Prep Trichomonas Trichomonas Absent (None Seen)
[2017-11-25 21:25] LABS: Anion Gap 14 mmol/L (10-20); BUN (Urea Nitrogen) 15 mg/dL (7.0-18.7); Calc. Creatinine Clearance 0 mL/min (70-130); Calcium 9.2 mg/dL (7.8-10.44); Carbon Dioxide 20 mmol/L (22-29); Chloride 108 mmol/L (98-107); Estimated GFR-MDRD Greater than 90; Glucose 98 mg/dL (70-105); Potassium 3.2 mmol/L (3.5-5.1); Sodium 139 mmol/L (136-145)
[2017-11-25 21:33] LABS: #Basophils 0.1 thou/uL (0.0-0.2); #Eosinphils 0.1 thou/uL (0.0-0.7); #Lymphocytes 2.8 thou/uL (1.20-3.40); #Monocytes 0.2 thou/uL (0.11-0.59); #Neutrophils 2.3 thou/uL (1.40-6.50); %Basophils 1.1 % (0.0-1.0); %Eosinophils 2.6 % (0.0-10.0); %Lymphocytes 49.8 % (21.0-51.0); %Monocytes 4.3 % (0.0-10.0); %Neutrophils 42.2 % (42.0-75.0); Hemoglobin 10.7 g/dL (12.0-16.0); Hypochromia MODERATE=16-30 cells (100X) (0-5/hpf); MDiff Complete? YES; Mean Corpuscular Hemoglobin 19.6 pg (27.0-31.0); Mean Corpuscular Volume 67.6 fL (78.0-98.0); Microcytosis MODERATE=15-30 cells (100X) (0-5/hpf); Ovalocytes SLIGHT = 2-5 cells (100X) (0-1/hpf); PLT Morphology Comment Appears Adequate; Platelet Count 342 thou/uL (130-400); RBC Distribution Width 14.5 % (11.5-14.5); Red Blood Cell (RBC) Count 5.46 mill/uL (4.20-5.40); White Blood Cell (WBC) Count 5.5 thou/uL (4.8-10.8)
[2017-11-25 21:35] LABS: Bilirubin Negative (Negative); Blood, Urine Large (Negative); Clarity Clear (Clear); Glucose, Urine (Dipstick) Negative (Negative); Leukocyte Trace (Negative); Nitrite Negative (Negative); Protein, Urine (Dipstick) Negative (Neg-Trace); Urobilinogen 0.2 mg/dL (0.2-1.0)
[2017-11-25 21:37] LABS: Bacteria/HPF Rare-Few HPF (None Seen)
[2017-11-25] MEDS ORDERED: Ketorolac Tromethamine 30 MG/ML VIAL ONE (21:38)
[2017-11-26 22:36] LABS: Chlamydia by PCR Not Detected (NotDetected); GC by PCR Not Detected (NotDetected)
== END 2017-11-25 22:02 | disposition home or self-care (01) ==
LOC: NAV ERS 20:37
DX: N93.8 Other specified abnormal uterine and vaginal bleeding (principal); D64.9 Anemia, unspecified; F41.9 Anxiety disorder, unspecified; F32.9 Major depressive disorder, single episode, unspecified; Z79.899 Other long term (current) drug therapy
CPT/HCPCS: 80048; 81003; 81015; 84703; 85025; 87210; 87491; 87591; 96374; J1885

== ENCOUNTER 2018-01-05 17:49 | Emergency (ER) | payer OTHER | END 2018-01-05 18:27 | disposition home or self-care (01) | LOC: NAV ERS 17:49 | DX: R04.2 Hemoptysis (principal); F41.9 Anxiety disorder, unspecified; F32.9 Major depressive disorder, single episode, unspecified; D64.9 Anemia, unspecified; Z79.891 Long term (current) use of opiate analgesic; Z79.899 Other long term (current) drug therapy | CPT/HCPCS: 99283 ==

== ENCOUNTER 2018-01-28 17:49 | Emergency (ER) | payer OTHER | END 2018-01-28 18:21 | disposition home or self-care (01) | LOC: NAV ERS 17:49 | DX: J20.9 Acute bronchitis, unspecified (principal); D50.0 Iron deficiency anemia secondary to blood loss (chronic); F41.9 Anxiety disorder, unspecified; F32.9 Major depressive disorder, single episode, unspecified; Z79.899 Other long term (current) drug therapy | CPT/HCPCS: 99282 ==

== ENCOUNTER 2018-04-25 20:53 | Emergency (ER) | payer OTHER ==
[2018-04-25 21:58] LABS: Bilirubin Negative (Negative); Blood, Urine Negative (Negative); Clarity Clear (Clear); Glucose, Urine (Dipstick) Negative (Negative); Leukocyte Moderate (Negative); Nitrite Positive (Negative); Protein, Urine (Dipstick) Trace mg/dL (Neg-Trace); Specific Gravity, Urine 1.015 (1.005-1.030); Urobilinogen 0.2 mg/dL (0.2-1.0); pH, Urine 6.5 (5.0-9.0)
[2018-04-25 22:15] LABS: Bacteria/HPF 3+ HPF (None Seen); RBC/HPF 0-3 HPF (0-3)
== END 2018-04-25 22:52 | disposition home or self-care (01) ==
LOC: NAV ERS 20:53
DX: N39.0 Urinary tract infection, site not specified (principal); J06.9 Acute upper respiratory infection, unspecified
CPT/HCPCS: 81003; 81015; 87804; 99284

== ENCOUNTER 2018-04-30 20:51 | Emergency (ER) | payer OTHER ==
[2018-04-30] MEDS ORDERED: predniSONE 20 MG TAB ONE (21:14)
--- NOTE | 2018-04-30 21:59 | RAD ---
PORTABLE CHEST: 04/30/18 HISTORY: Chest pain and cough. COMPARISON: 10/25/14 study. The heart size and mediastinum are within normal limits. The lungs are clear or infiltrates. No bony findings. IMPRESSION: No active intrathoracic disease. POS: [facility]
== END 2018-04-30 21:56 | disposition home or self-care (01) ==
LOC: NAV ERS 20:51
DX: J06.9 Acute upper respiratory infection, unspecified (principal); F41.9 Anxiety disorder, unspecified; F32.9 Major depressive disorder, single episode, unspecified
CPT/HCPCS: 71045; 87081; 87430; J7506; J7620

== ENCOUNTER 2018-05-14 21:28 | Emergency (ER) | payer OTHER ==
[2018-05-14 21:53] LABS: BHCG - Serum Negative (NEGATIVE); Pregs Control Bar Appear? YES (CONTROL BAR)
[2018-05-14 22:00] LABS: #Eosinphils 0.1 thou/uL (0.0-0.7); #Lymphocytes 1.8 thou/uL (1.20-3.40); #Monocytes 0.5 thou/uL (0.11-0.59); #Neutrophils 3.8 thou/uL (1.40-6.50); %Basophils 0.4 % (0.0-1.0); %Eosinophils 1.9 % (0.0-10.0); %Lymphocytes 28.5 % (21.0-51.0); %Monocytes 7.7 % (0.0-10.0); %Neutrophils 61.4 % (42.0-75.0); Hemoglobin 10.3 g/dL (12.0-16.0); Hypochromia MARKED = >30 cells (100X) (0-5/hpf); MDiff Complete? YES; Mean Corpuscular HGB CONC 29.8 g/dL (32.0-36.0); Mean Corpuscular Hemoglobin 20.1 pg (27.0-31.0); Mean Corpuscular Volume 67.5 fL (78.0-98.0); Mean Platelet Volume 7.2 fL (7.4-10.4); Microcytosis MARKED = >30 cells (100X) (0-5/hpf); Ovalocytes SLIGHT = 2-5 cells (100X) (0-1/hpf); PLT Morphology Comment Appears Adequate; Platelet Count 397 thou/uL (130-400); Red Blood Cell (RBC) Count 5.13 mill/uL (4.20-5.40); Target Cells SLIGHT = 2-5 cells (100X) (0-1/hpf); White Blood Cell (WBC) Count 6.1 thou/uL (4.8-10.8)
== END 2018-05-14 22:43 | disposition home or self-care (01) ==
LOC: NAV ERS 21:28
DX: N93.9 Abnormal uterine and vaginal bleeding, unspecified (principal); F41.9 Anxiety disorder, unspecified; F32.9 Major depressive disorder, single episode, unspecified; D50.9 Iron deficiency anemia, unspecified; Z79.51 Long term (current) use of inhaled steroids
CPT/HCPCS: 84703; 85025; 99284

== ENCOUNTER 2018-06-02 20:16 | Emergency (ER) | payer OTHER ==
[2018-06-02 21:10] LABS: Hemoglobin 11.2 g/dL (12.0-16.0); Hypochromia SLIGHT = 6-15 cells (100X) (0-5/hpf); Lymphocytes 31 % (21-51); MDiff Complete? YES; Mean Corpuscular HGB CONC 30.4 g/dL (32.0-36.0); Mean Corpuscular Hemoglobin 20.4 pg (27.0-31.0); Mean Corpuscular Volume 67.1 fL (78.0-98.0); Monocytes 4 % (0-10); Neutrophil 63 % (42-75); Ovalocytes SLIGHT = 2-5 cells (100X) (0-1/hpf); PLT Morphology Comment Appears Increased; Platelet Count 438 thou/uL (130-400); Reactive Lymphocytes 2 % (0-10); Red Blood Cell (RBC) Count 5.51 mill/uL (4.20-5.40); Sickle Cells SLIGHT = 1-5 cells (100X) (None Seen); White Blood Cell (WBC) Count 10.1 thou/uL (4.8-10.8)
[2018-06-02 21:19] LABS: INR-International Normal Ratio 1.1; PTT 33.5 SEC (22.9-36.1); Prothrombin Time 14.5 SEC (12.0-14.7)
[2018-06-02 21:20] LABS: D-Dimer Test 0.43 *mcg/mL (0.27-0.43)
[2018-06-02 21:23] LABS: Bilirubin Negative (Negative); Blood, Urine Moderate (Negative); Clarity Clear (Clear); Glucose, Urine (Dipstick) Negative (Negative); Leukocyte Small (Negative); Nitrite Positive (Negative); Protein, Urine (Dipstick) Negative (Neg-Trace); Specific Gravity, Urine 1.015 (1.005-1.030); Urobilinogen 0.2 mg/dL (0.2-1.0)
[2018-06-02 21:24] LABS: Pregnancy Test - Urine (BHCG) Negative (Negative); Pregu Control Background? CLEAR/WHITE (CLR/WHITE); Pregu Control Bar Appear? YES (CONTROL BAR); Specific Gravity 1.015 (1.002-1.036)
[2018-06-02 21:25] LABS: Anion Gap 17 mmol/L (10-20); BUN (Urea Nitrogen) 13 mg/dL (7.0-18.7); Calc. Creatinine Clearance 0 mL/min (70-130); Calcium 10.4 mg/dL (7.8-10.44); Carbon Dioxide 22 mmol/L (22-29); Chloride 103 mmol/L (98-107); Estimated GFR-MDRD Greater than 90; Glucose 93 mg/dL (70-105); Potassium 3.4 mmol/L (3.5-5.1); Sodium 139 mmol/L (136-145)
[2018-06-02 21:25] LABS: Bacteria/HPF 3+ HPF (None Seen); RBC/HPF 21-50 HPF (0-3)
[2018-06-02] MEDS ORDERED: Sodium Chloride 0.9% 1,000 ML ONE (21:34)
[2018-06-02] MEDS ORDERED: Acetaminophen 325 MG TAB ONE (21:34)
--- NOTE | 2018-06-02 21:34 | RAD ---
CHEST TWO VIEWS: INDICATIONS: Chest pain. COMPARISON: 04/30/2018 FINDINGS: The lungs are clear. The cardiac silhouette is normal in size. No effusion or pneumothorax. The os seous structures are intact. IMPRESSION: No focal consolidation. POS: [facility]
[2018-06-02] MEDS ORDERED: Ibuprofen 200 MG TAB ONE (23:33)
== END 2018-06-03 01:17 | disposition left against medical advice (07) ==
LOC: NAV ERS 20:16
DX: N93.9 Abnormal uterine and vaginal bleeding, unspecified (principal); R07.9 Chest pain, unspecified; F41.9 Anxiety disorder, unspecified; F32.9 Major depressive disorder, single episode, unspecified; Z79.891 Long term (current) use of opiate analgesic; Z79.899 Other long term (current) drug therapy; Z79.51 Long term (current) use of inhaled steroids
CPT/HCPCS: 36415; 71046; 80048; 81003; 81015; 81025; 84484; 85025; 85379; 85610; 85730; 87077; 87086; 87186; 93005; 94760; 96360; J7050

== ENCOUNTER 2018-06-08 11:37 | Emergency (ER) | payer OTHER ==
[2018-06-08] MEDS ORDERED: Ondansetron ODT 4 MG TAB ONE (13:20)
== END 2018-06-08 13:10 | disposition home or self-care (01) ==
LOC: NAV ERS 11:37
DX: R09.1 Pleurisy (principal); D50.0 Iron deficiency anemia secondary to blood loss (chronic); K21.9 Gastro-esophageal reflux disease without esophagitis; F41.9 Anxiety disorder, unspecified; Z79.891 Long term (current) use of opiate analgesic; Z79.899 Other long term (current) drug therapy
CPT/HCPCS: 93005; Q0162

== ENCOUNTER 2018-07-25 20:46 | Emergency (ER) | payer OTHER ==
[2018-07-25 21:19] LABS: Bilirubin Negative (Negative); Blood, Urine Trace (Negative); Glucose, Urine (Dipstick) Negative (Negative); Leukocyte Small (Negative); Nitrite Positive (Negative); Protein, Urine (Dipstick) 30 mg/dL (Neg-Trace); Specific Gravity, Urine 1.025 (1.005-1.030); Urobilinogen 0.2 mg/dL (0.2-1.0); pH, Urine 6.5 (5.0-9.0)
[2018-07-25 21:21] LABS: Clarity Hazy (Clear); RBC/HPF 0-3 HPF (0-3)
[2018-07-25 21:22] LABS: Bacteria/HPF 3+ HPF (None Seen); Pregnancy Test - Urine (BHCG) Negative (Negative); Squamous Epithelial 0-3 HPF (0-3)
[2018-07-25 21:23] LABS: Pregu Control Background? CLEAR/WHITE (CLR/WHITE); Pregu Control Bar Appear? YES (CONTROL BAR); Specific Gravity 1.025 (1.002-1.036)
[2018-07-25 21:28] LABS: #Eosinphils 0.2 thou/uL (0.0-0.7); #Lymphocytes 2.4 thou/uL (1.20-3.40); #Monocytes 0.2 thou/uL (0.11-0.59); #Neutrophils 2.7 thou/uL (1.40-6.50); %Basophils 0.9 % (0.0-1.0); %Eosinophils 3.7 % (0.0-10.0); %Monocytes 4.3 % (0.0-10.0); %Neutrophils 48.1 % (42.0-75.0); Mean Corpuscular HGB CONC 29.7 g/dL (32.0-36.0); Mean Corpuscular Hemoglobin 20.2 pg (27.0-31.0); Mean Corpuscular Volume 68.1 fL (78.0-98.0); Platelet Count 294 thou/uL (130-400); RBC Distribution Width 14.5 % (11.5-14.5); Red Blood Cell (RBC) Count 4.95 mill/uL (4.20-5.40); White Blood Cell (WBC) Count 5.5 thou/uL (4.8-10.8)
[2018-07-25 21:37] LABS: ALT (SGPT) 16 U/L (8-55); AST (SGOT) 23 U/L (5-34); Albumin 4.3 g/dL (3.5-5.0); Alkaline Phosphatase 58 U/L (40-150); Anion Gap 14 mmol/L (10-20); BUN (Urea Nitrogen) 17 mg/dL (7.0-18.7); Bilirubin, Total 0.2 mg/dL (0.2-1.2); Calc. Creatinine Clearance 0 mL/min (70-130); Calcium 9.6 mg/dL (7.8-10.44); Carbon Dioxide 24 mmol/L (22-29); Chloride 107 mmol/L (98-107); Estimated GFR-MDRD Greater than 90; Globulin 3.5 g/dL (2.4-3.5); Glucose 81 mg/dL (70-105); Lipase 78 U/L (8-78); Potassium 3.6 mmol/L (3.5-5.1); Protein, Total 7.8 g/dL (6.0-8.3); Sodium 141 mmol/L (136-145)
--- NOTE | 2018-07-25 21:39 | RAD ---
TWO VIEW CHEST: 07/25/18 INDICATIONS: Cough. Lungs are clear. Heart and mediastinum appear normal. IMPRESSION: Negative chest. POS: [facility]
[2018-07-25] MEDS ORDERED: Cephalexin 250 MG CAP ONE (21:47)
== END 2018-07-25 21:56 | disposition home or self-care (01) ==
LOC: NAV ERS 20:46
DX: K29.70 Gastritis, unspecified, without bleeding (principal); J31.0 Chronic rhinitis; N39.0 Urinary tract infection, site not specified; K21.9 Gastro-esophageal reflux disease without esophagitis; F41.9 Anxiety disorder, unspecified; F32.9 Major depressive disorder, single episode, unspecified; Z79.899 Other long term (current) drug therapy
CPT/HCPCS: 71046; 80053; 81003; 81015; 81025; 83690; 85025; 87086

== ENCOUNTER 2018-09-05 14:19 | Emergency (ER) | payer OTHER ==
[2018-09-05 15:16] LABS: Wet Prep Clue Cells Clue Cells Absent (None Seen); Wet Prep Trichomonas Trichomonas Absent (None Seen)
[2018-09-05 15:41] LABS: Bilirubin Negative (Negative); Blood, Urine Trace (Negative); Glucose, Urine (Dipstick) Negative (Negative); Leukocyte Small (Negative); Nitrite Positive (Negative); Protein, Urine (Dipstick) Negative (Neg-Trace); Specific Gravity, Urine 1.015 (1.005-1.030); Urobilinogen 0.2 mg/dL (0.2-1.0); pH, Urine 6.5 (5.0-9.0)
[2018-09-05 15:42] LABS: Clarity Hazy (Clear)
[2018-09-05 15:43] LABS: RBC/HPF 0-3 HPF (0-3)
[2018-09-05 15:44] LABS: Bacteria/HPF 4+ HPF (None Seen)
[2018-09-06 21:10] LABS: Chlamydia by PCR DETECTED (NotDetected); GC by PCR Not Detected (NotDetected)
== END 2018-09-05 15:52 | disposition home or self-care (01) ==
LOC: NAV ERS 14:19
DX: N39.0 Urinary tract infection, site not specified (principal); R10.2 Pelvic and perineal pain; K21.9 Gastro-esophageal reflux disease without esophagitis; D50.0 Iron deficiency anemia secondary to blood loss (chronic); F41.9 Anxiety disorder, unspecified; F32.9 Major depressive disorder, single episode, unspecified; Z79.891 Long term (current) use of opiate analgesic; Z79.899 Other long term (current) drug therapy
CPT/HCPCS: 81003; 81015; 87077; 87086; 87186; 87210; 87491; 87591; 99284

== ENCOUNTER → 2018-09-10 | Day surgery (SDC) | payer OTHER ==
[~2018-09-10] MED LIST: Azithromycin 250 MG TAB ONE; Lidocaine 1% (PF) 30 ML VIAL ONE; cefTRIAXone\\ROCEPHIN 250 MG VIAL ONE
== END ==
LOC: NAV ER/OP 13:03
PROVIDERS: ATTEND Emergency Medicine
DX: A74.9 Chlamydial infection, unspecified (principal)
CPT/HCPCS: 96372; J0696; J2001

== ENCOUNTER 2018-09-23 17:33 | Emergency (ER) | payer OTHER ==
[2018-09-23] MEDS ORDERED: Promethazine HCl 25 MG/ML VIAL ONE (18:05)
[2018-09-23 18:24] LABS: #Eosinphils 0.2 thou/uL (0.0-0.7); #Lymphocytes 2.3 thou/uL (1.20-3.40); #Monocytes 0.3 thou/uL (0.11-0.59); #Neutrophils 1.5 thou/uL (1.40-6.50); %Lymphocytes 52.9 % (21.0-51.0); %Monocytes 6.1 % (0.0-10.0); Hemoglobin 10.2 g/dL (12.0-16.0); Mean Corpuscular HGB CONC 28.3 g/dL (32.0-36.0); Mean Corpuscular Hemoglobin 19.3 pg (27.0-31.0); Mean Corpuscular Volume 68.1 fL (78.0-98.0); Platelet Count 235 thou/uL (130-400); RBC Distribution Width 15.5 % (11.5-14.5); Red Blood Cell (RBC) Count 5.28 mill/uL (4.20-5.40); White Blood Cell (WBC) Count 4.3 thou/uL (4.8-10.8)
[2018-09-23 18:30] LABS: BHCG - Serum Negative (NEGATIVE); Pregs Control Bar Appear? YES (CONTROL BAR)
[2018-09-23 18:42] LABS: ALT (SGPT) 14 U/L (8-55); AST (SGOT) 22 U/L (5-34); Albumin 4.2 g/dL (3.5-5.0); Alkaline Phosphatase 60 U/L (40-150); Anion Gap 15 mmol/L (10-20); BUN (Urea Nitrogen) 15 mg/dL (7.0-18.7); Bilirubin, Total 0.3 mg/dL (0.2-1.2); Calc. Creatinine Clearance 0 mL/min (70-130); Calcium 9.2 mg/dL (7.8-10.44); Carbon Dioxide 25 mmol/L (22-29); Chloride 104 mmol/L (98-107); Estimated GFR-MDRD 85; Globulin 3.1 g/dL (2.4-3.5); Glucose 89 mg/dL (70-105); Lipase 59 U/L (8-78); Potassium 3.6 mmol/L (3.5-5.1); Protein, Total 7.3 g/dL (6.0-8.3); Sodium 140 mmol/L (136-145)
== END 2018-09-23 19:25 | disposition home or self-care (01) ==
LOC: NAV ERS 17:33
DX: K92.0 Hematemesis (principal); K22.8 Other specified diseases of esophagus; D50.9 Iron deficiency anemia, unspecified; F41.9 Anxiety disorder, unspecified; F32.9 Major depressive disorder, single episode, unspecified; Z79.899 Other long term (current) drug therapy
CPT/HCPCS: 80053; 82274; 83690; 84703; 85025; 96372; J2550

== ENCOUNTER 2018-11-22 14:20 | Emergency (ER) | payer OTHER ==
[2018-11-22 15:07] LABS: Bilirubin Negative (Negative); Blood, Urine Negative (Negative); Clarity Clear (Clear); Glucose, Urine (Dipstick) Negative (Negative); Leukocyte Negative (Negative); Nitrite Negative (Negative); Pregnancy Test - Urine (BHCG) Negative (Negative); Pregu Control Background? CLEAR/WHITE (CLR/WHITE); Pregu Control Bar Appear? YES (CONTROL BAR); Protein, Urine (Dipstick) Trace mg/dL (Neg-Trace); Specific Gravity 1.025 (1.002-1.036); Urobilinogen 0.2 mg/dL (0.2-1.0)
== END 2018-11-22 15:21 | disposition home or self-care (01) ==
LOC: NAV ERS 14:20
DX: R10.2 Pelvic and perineal pain (principal); N64.4 Mastodynia; D50.9 Iron deficiency anemia, unspecified; K21.9 Gastro-esophageal reflux disease without esophagitis; F41.9 Anxiety disorder, unspecified; F32.9 Major depressive disorder, single episode, unspecified; Z79.899 Other long term (current) drug therapy
CPT/HCPCS: 81003; 81025; 99284

== ENCOUNTER 2018-11-25 21:23 | Emergency (ER) | payer OTHER, SELFPAY ==
[2018-11-25 22:06] LABS: BHCG - Serum Negative (NEGATIVE); Pregs Control Bar Appear? YES (CONTROL BAR)
[2018-11-25 22:10] LABS: #Basophils 0.1 thou/uL (0.0-0.2); #Eosinphils 0.2 thou/uL (0.0-0.7); #Lymphocytes 2.9 thou/uL (1.20-3.40); #Monocytes 0.3 thou/uL (0.11-0.59); #Neutrophils 2.8 thou/uL (1.40-6.50); %Eosinophils 2.7 % (0.0-10.0); %Lymphocytes 46.1 % (21.0-51.0); %Monocytes 4.9 % (0.0-10.0); %Neutrophils 45.3 % (42.0-75.0); Anisocytosis MODERATE=16-30 cells (100X) (0-5/hpf); Hemoglobin 10.2 g/dL (12.0-16.0); Hypochromia MODERATE=16-30 cells (100X) (0-5/hpf); MDiff Complete? YES; Mean Corpuscular Hemoglobin 20.3 pg (27.0-31.0); Mean Corpuscular Volume 69.9 fL (78.0-98.0); Mean Platelet Volume 5.6 fL (7.4-10.4); Microcytosis MODERATE=15-30 cells (100X) (0-5/hpf); Ovalocytes SLIGHT = 2-5 cells (100X) (0-1/hpf); Platelet Count 290 thou/uL (130-400); Platelet Morphology Comment Appears Adequate; RBC Distribution Width 15.8 % (11.5-14.5); Red Blood Cell (RBC) Count 5.04 mill/uL (4.20-5.40); White Blood Cell (WBC) Count 6.3 thou/uL (4.8-10.8)
[2018-11-27 17:32] LABS: Chlamydia by PCR Not Detected (NotDetected); GC by PCR Not Detected (NotDetected)
== END 2018-11-25 22:43 | disposition home or self-care (01) ==
LOC: NAV ERS 21:23
DX: N93.9 Abnormal uterine and vaginal bleeding, unspecified (principal); F41.9 Anxiety disorder, unspecified; F32.9 Major depressive disorder, single episode, unspecified
CPT/HCPCS: 84703; 85025; 87480; 87491; 87510; 87591; 87660; 99284

== ENCOUNTER 2018-12-03 19:16 | Emergency (ER) | payer SELFPAY ==
[2018-12-03 20:08] LABS: #Eosinphils 0.2 thou/uL (0.0-0.7); #Lymphocytes 2.5 thou/uL (1.20-3.40); #Monocytes 0.3 thou/uL (0.11-0.59); #Neutrophils 3.1 thou/uL (1.40-6.50); %Basophils 0.6 % (0.0-1.0); %Eosinophils 2.5 % (0.0-10.0); %Lymphocytes 40.7 % (21.0-51.0); %Monocytes 5.5 % (0.0-10.0); %Neutrophils 50.6 % (42.0-75.0); Hemoglobin 9.8 g/dL (12.0-16.0); Mean Corpuscular HGB CONC 29.1 g/dL (32.0-36.0); Mean Corpuscular Hemoglobin 20.4 pg (27.0-31.0); Mean Corpuscular Volume 70.3 fL (78.0-98.0); Mean Platelet Volume 5.4 fL (7.4-10.4); Platelet Count 304 thou/uL (130-400); RBC Distribution Width 15.9 % (11.5-14.5); Red Blood Cell (RBC) Count 4.81 mill/uL (4.20-5.40)
[2018-12-03 20:11] LABS: Bilirubin Negative (Negative); Blood, Urine Negative (Negative); Clarity Clear (Clear); Glucose, Urine (Dipstick) Negative (Negative); Leukocyte Negative (Negative); Nitrite Negative (Negative); Protein, Urine (Dipstick) Negative (Neg-Trace); Urobilinogen 0.2 mg/dL (Less than 2)
[2018-12-03 20:13] LABS: ALT (SGPT) 62 U/L (8-55); AST (SGOT) 67 U/L (5-34); Alkaline Phosphatase 50 U/L (40-150); Anion Gap 13 mmol/L (10-20); BUN (Urea Nitrogen) 15 mg/dL (7.0-18.7); Bilirubin, Total 0.2 mg/dL (0.2-1.2); Calc. Creatinine Clearance 0 mL/min (70-130); Calcium 9.3 mg/dL (7.8-10.44); Carbon Dioxide 24 mmol/L (22-29); Chloride 106 mmol/L (98-107); Estimated GFR-MDRD Greater than 90; Globulin 3.3 g/dL (2.4-3.5); Glucose 86 mg/dL (70-105); Protein, Total 7.3 g/dL (6.0-8.3); Sodium 139 mmol/L (136-145)
== END 2018-12-03 20:40 | disposition home or self-care (01) ==
LOC: NAV ERS 19:16
DX: N76.0 Acute vaginitis (principal); N93.9 Abnormal uterine and vaginal bleeding, unspecified; J20.8 Acute bronchitis due to other specified organisms; F41.9 Anxiety disorder, unspecified; F32.9 Major depressive disorder, single episode, unspecified
CPT/HCPCS: 51701; 80053; 81003; 85025

== ENCOUNTER 2018-12-22 17:56 | Emergency (ER) | payer SELFPAY ==
[2018-12-22 18:31] LABS: Bilirubin Negative (Negative); Blood, Urine Negative (Negative); Clarity Clear (Clear); Glucose, Urine (Dipstick) Negative (Negative); Leukocyte Negative (Negative); Nitrite Negative (Negative); Protein, Urine (Dipstick) Negative (Neg-Trace); Urobilinogen 0.2 mg/dL (Less than 2)
[2018-12-22 18:32] LABS: #Eosinphils 0.1 thou/uL (0.0-0.7); #Monocytes 0.3 thou/uL (0.11-0.59); #Neutrophils 3.5 thou/uL (1.40-6.50); %Basophils 0.6 % (0.0-1.0); %Eosinophils 1.5 % (0.0-10.0); %Lymphocytes 33.7 % (21.0-51.0); %Monocytes 4.3 % (0.0-10.0); %Neutrophils 59.9 % (42.0-75.0); Hemoglobin 11.1 g/dL (12.0-16.0); Mean Corpuscular HGB CONC 29.2 g/dL (32.0-36.0); Mean Corpuscular Hemoglobin 20.4 pg (27.0-31.0); Mean Platelet Volume 5.7 fL (7.4-10.4); Platelet Count 367 thou/uL (130-400); RBC Distribution Width 15.1 % (11.5-14.5); Red Blood Cell (RBC) Count 5.41 mill/uL (4.20-5.40); White Blood Cell (WBC) Count 5.9 thou/uL (4.8-10.8)
[2018-12-22 18:55] LABS: ALT (SGPT) 15 U/L (8-55); AST (SGOT) 35 U/L (5-34); Albumin 4.5 g/dL (3.5-5.0); Alkaline Phosphatase 75 U/L (40-150); Anion Gap 16 mmol/L (10-20); BUN (Urea Nitrogen) 14 mg/dL (7.0-18.7); Bilirubin, Total 0.5 mg/dL (0.2-1.2); Calc. Creatinine Clearance 0 mL/min (70-130); Calcium 9.9 mg/dL (7.8-10.44); Carbon Dioxide 25 mmol/L (22-29); Chloride 103 mmol/L (98-107); Estimated GFR-MDRD 79; Globulin 4.4 g/dL (2.4-3.5); Glucose 90 mg/dL (70-105); Lipase 22 U/L (8-78); Potassium 4.2 mmol/L (3.5-5.1); Protein, Total 8.9 g/dL (6.0-8.3); Sodium 140 mmol/L (136-145)
[2018-12-22 19:08] LABS: BHCG - Serum Negative (NEGATIVE); Pregs Control Bar Appear? YES (CONTROL BAR)
[2018-12-22 19:10] LABS: MDiff Complete? YES; Microcytosis MODERATE=15-30 cells (100X) (0-5/hpf); Platelet Morphology Comment Appears Adequate
== END 2018-12-22 19:25 | disposition home or self-care (01) ==
LOC: NAV ERS 17:56
DX: R11.2 Nausea with vomiting, unspecified (principal); R53.1 Weakness; D50.9 Iron deficiency anemia, unspecified; K21.9 Gastro-esophageal reflux disease without esophagitis; F41.9 Anxiety disorder, unspecified; F32.9 Major depressive disorder, single episode, unspecified
CPT/HCPCS: 36415; 80053; 81003; 83690; 84703; 85025; 99284

== ENCOUNTER 2019-01-08 14:54 | Emergency (ER) | payer SELFPAY ==
[2019-01-08 15:40] LABS: #Eosinphils 0.1 thou/uL (0.0-0.7); #Monocytes 0.3 thou/uL (0.11-0.59); %Eosinophils 2.2 % (0.0-10.0); %Lymphocytes 45.7 % (21.0-51.0); %Monocytes 6.3 % (0.0-10.0); %Neutrophils 44.7 % (42.0-75.0); Hemoglobin 10.6 g/dL (12.0-16.0); Mean Corpuscular HGB CONC 29.6 g/dL (32.0-36.0); Mean Corpuscular Hemoglobin 20.6 pg (27.0-31.0); Mean Corpuscular Volume 69.6 fL (78.0-98.0); Mean Platelet Volume 5.5 fL (7.4-10.4); Platelet Count 321 thou/uL (130-400); RBC Distribution Width 14.1 % (11.5-14.5); Red Blood Cell (RBC) Count 5.16 mill/uL (4.20-5.40); White Blood Cell (WBC) Count 4.4 thou/uL (4.8-10.8)
[2019-01-08 16:07] LABS: Hypochromia SLIGHT = 6-15 cells (100X) (0-5/hpf); MDiff Complete? YES; Microcytosis SLIGHT = 6-15 cells (100X) (0-5/hpf); Platelet Morphology Comment Appears Adequate
[2019-01-08 16:10] LABS: Bilirubin Negative (Negative); Blood, Urine Negative (Negative); Clarity Clear (Clear); Glucose, Urine (Dipstick) Negative (Negative); Leukocyte Small (Negative); Nitrite Positive (Negative); Protein, Urine (Dipstick) Negative (Neg-Trace); Urobilinogen 0.2 mg/dL (Less than 2)
[2019-01-08 16:28] LABS: Pregnancy Test - Urine (BHCG) Negative (Negative)
[2019-01-08 16:29] LABS: Pregu Control Background? CLEAR/WHITE (CLR/WHITE); Pregu Control Bar Appear? YES (CONTROL BAR)
[2019-01-08 16:31] LABS: Bacteria/HPF Rare-Few HPF (None Seen); RBC/HPF 0-3 HPF (0-3); WBC/HPF 0-3 HPF (0-3)
== END 2019-01-08 16:35 | disposition home or self-care (01) ==
LOC: NAV ERS 14:54
DX: N39.0 Urinary tract infection, site not specified (principal); D50.9 Iron deficiency anemia, unspecified; F41.9 Anxiety disorder, unspecified; F32.9 Major depressive disorder, single episode, unspecified; K21.9 Gastro-esophageal reflux disease without esophagitis
CPT/HCPCS: 81003; 81015; 81025; 85025; 87086; 99284

== ENCOUNTER 2019-01-31 16:57 | Emergency (ER) | payer MEDICAID ==
[2019-01-31 17:37] LABS: Bilirubin Negative (Negative); Blood, Urine Moderate (Negative); Clarity Clear (Clear); Glucose, Urine (Dipstick) Negative (Negative); Leukocyte Moderate (Negative); Nitrite Negative (Negative); Protein, Urine (Dipstick) Trace mg/dL (Neg-Trace); Urobilinogen 0.2 mg/dL (Less than 2)
[2019-01-31 17:51] LABS: Pregnancy Test - Urine (BHCG) POSITIVE (Negative); Pregu Control Background? CLEAR/WHITE (CLR/WHITE); Pregu Control Bar Appear? YES (CONTROL BAR)
[2019-01-31 17:52] LABS: Specific Gravity 1.025 (1.002-1.036)
[2019-01-31 18:11] LABS: Bacteria/HPF Rare-Few HPF (None Seen); RBC/HPF 0-3 HPF (0-3); WBC/HPF 21-50 HPF (0-3)
[2019-02-02 18:57] LABS: Chlam.trachomatis by PCR,Urine Not Detected (NotDetected)
== END 2019-01-31 18:51 | disposition short-term general hospital (02) ==
LOC: NAV ERS 16:57
DX: O23.11 Infections of bladder in pregnancy, first trimester (principal); O99.011 Anemia complicating pregnancy, first trimester; O99.611 Diseases of the digestive system complicating pregnancy, first trimester; K21.9 Gastro-esophageal reflux disease without esophagitis; O99.341 Other mental disorders complicating pregnancy, first trimester; F41.9 Anxiety disorder, unspecified; F32.9 Major depressive disorder, single episode, unspecified; Z79.899 Other long term (current) drug therapy; Z3A.01 Less than 8 weeks gestation of pregnancy
CPT/HCPCS: 81003; 81015; 81025; 84702; 86900; 86901; 87086; 87491; 87591; 99284

== ENCOUNTER 2019-02-02 10:09 | Emergency (ER) | payer MEDICAID | END 2019-02-02 11:45 | disposition home or self-care (01) | LOC: NAV ERS 10:09 | DX: O99.89 Other specified diseases and conditions complicating pregnancy, childbirth and the puerperium (principal); R35.0 Frequency of micturition; O99.011 Anemia complicating pregnancy, first trimester; D50.9 Iron deficiency anemia, unspecified; O99.611 Diseases of the digestive system complicating pregnancy, first trimester; K21.9 Gastro-esophageal reflux disease without esophagitis; O99.341 Other mental disorders complicating pregnancy, first trimester; F41.9 Anxiety disorder, unspecified; F32.9 Major depressive disorder, single episode, unspecified; Z3A.01 Less than 8 weeks gestation of pregnancy | CPT/HCPCS: 84702; 99283 ==

== ENCOUNTER 2019-02-03 02:59 | Emergency (ER) | payer OTHER ==
[2019-02-03] MEDS ORDERED: Azithromycin 250 MG TAB ONE (03:41)
[2019-02-03] MEDS ORDERED: Acetaminophen 500 MG TAB ONE (03:41)
[2019-02-03] MEDS ORDERED: cefTRIAXone\\ROCEPHIN 250 MG VIAL ONE (03:41)
[2019-02-03 03:43] LABS: Wet Prep Clue Cells Clue Cells PRESENT (None Seen); Wet Prep Trichomonas Trichomonas Absent (None Seen)
[2019-02-04 17:18] LABS: Chlamydia by PCR Not Detected (NotDetected); GC by PCR Not Detected (NotDetected)
== END 2019-02-03 04:06 | disposition home or self-care (01) ==
LOC: MERGE 02:59 → NAV ERS 02:59
DX: O99.89 Other specified diseases and conditions complicating pregnancy, childbirth and the puerperium (principal); R10.9 Unspecified abdominal pain; O99.340 Other mental disorders complicating pregnancy, unspecified trimester; F32.9 Major depressive disorder, single episode, unspecified
CPT/HCPCS: 87086; 87210; 87480; 87491; 87510; 87591; 87660; 96372; 99283; J0696

== ENCOUNTER 2019-02-06 15:08 | Emergency (ER) | payer OTHER ==
[2019-02-06] MEDS ORDERED: Dexamethasone 4 mg/ml Vial ONE ×2 (15:33→15:34)
== END 2019-02-06 15:40 | disposition home or self-care (01) ==
LOC: NAV ERS 15:08
DX: L30.9 Dermatitis, unspecified (principal); D50.9 Iron deficiency anemia, unspecified; K21.9 Gastro-esophageal reflux disease without esophagitis; F41.9 Anxiety disorder, unspecified; F32.9 Major depressive disorder, single episode, unspecified
CPT/HCPCS: 99282; J1100

== ENCOUNTER 2019-02-09 19:57 | Emergency (ER) | payer OTHER | END 2019-02-09 21:41 | disposition short-term general hospital (02) | LOC: NAV ERS 19:57 | DX: N93.9 Abnormal uterine and vaginal bleeding, unspecified (principal); R10.2 Pelvic and perineal pain; D50.9 Iron deficiency anemia, unspecified; K21.9 Gastro-esophageal reflux disease without esophagitis; F32.9 Major depressive disorder, single episode, unspecified; F41.9 Anxiety disorder, unspecified | CPT/HCPCS: 84702; 99284 ==

== ENCOUNTER 2019-02-21 11:56 | Emergency (ER) | payer OTHER | END 2019-02-21 12:30 | disposition home or self-care (01) | LOC: NAV ERS 11:56 | DX: J06.9 Acute upper respiratory infection, unspecified (principal); D50.9 Iron deficiency anemia, unspecified; K21.9 Gastro-esophageal reflux disease without esophagitis; F41.9 Anxiety disorder, unspecified; F32.9 Major depressive disorder, single episode, unspecified; Z79.899 Other long term (current) drug therapy | CPT/HCPCS: 99281 ==

== ENCOUNTER 2019-03-18 20:33 | Emergency (ER) | payer MEDICAID ==
[2019-03-18 21:03] LABS: Bilirubin Negative (Negative); Blood, Urine Negative (Negative); Clarity Clear (Clear); Glucose, Urine (Dipstick) Negative (Negative); Leukocyte Negative (Negative); Nitrite Negative (Negative); Protein, Urine (Dipstick) Negative (Neg-Trace); Urobilinogen 0.2 mg/dL (Less than 2)
[2019-03-18] MEDS ORDERED: Promethazine 25 MG TAB ONE (21:30)
== END 2019-03-18 21:34 | disposition home or self-care (01) ==
LOC: NAV ERS 20:33
DX: O21.9 Vomiting of pregnancy, unspecified (principal); O99.611 Diseases of the digestive system complicating pregnancy, first trimester; K21.9 Gastro-esophageal reflux disease without esophagitis; O99.011 Anemia complicating pregnancy, first trimester; O99.341 Other mental disorders complicating pregnancy, first trimester; F31.9 Bipolar disorder, unspecified; F32.9 Major depressive disorder, single episode, unspecified; Z3A.10 10 weeks gestation of pregnancy
CPT/HCPCS: 81003; 87086; 99284; Q0169

== ENCOUNTER 2019-04-06 18:35 | Emergency (ER) | payer OTHER ==
[2019-04-06] MEDS ORDERED: Promethazine HCl 25 MG/ML VIAL ONE (19:39)
[2019-04-06] MEDS ORDERED: Acetaminophen 325 MG TAB ONE (19:39)
[2019-04-06 19:49] LABS: #Eosinphils 0.1 thou/uL (0.0-0.7); #Lymphocytes 1.5 thou/uL (1.20-3.40); #Monocytes 0.4 thou/uL (0.11-0.59); #Neutrophils 5.2 thou/uL (1.40-6.50); %Basophils 0.4 % (0.0-1.0); %Eosinophils 1.4 % (0.0-10.0); %Lymphocytes 21.1 % (21.0-51.0); %Neutrophils 71.1 % (42.0-75.0); Hemoglobin 9.4 g/dL (12.0-16.0); Mean Corpuscular HGB CONC 30.5 g/dL (32.0-36.0); Mean Corpuscular Hemoglobin 21.6 pg (27.0-31.0); Mean Corpuscular Volume 70.7 fL (78.0-98.0); Mean Platelet Volume 5.9 fL (7.4-10.4); Platelet Count 319 thou/uL (130-400); RBC Distribution Width 15.1 % (11.5-14.5); Red Blood Cell (RBC) Count 4.37 mill/uL (4.20-5.40); White Blood Cell (WBC) Count 7.3 thou/uL (4.8-10.8)
[2019-04-06 19:57] LABS: Anion Gap 14 mmol/L (10-20); BUN (Urea Nitrogen) 14 mg/dL (7.0-18.7); Calc. Creatinine Clearance 0 mL/min (70-130); Calcium 9.1 mg/dL (7.8-10.44); Carbon Dioxide 22 mmol/L (22-29); Chloride 105 mmol/L (98-107); Estimated GFR-MDRD Greater than 90; Glucose 77 mg/dL (70-105); Potassium 3.5 mmol/L (3.5-5.1); Sodium 137 mmol/L (136-145)
[2019-04-06 20:07] LABS: Anisocytosis SLIGHT = 6-15 cells (100X) (0-5/hpf); MDiff Complete? YES; Microcytosis MODERATE=15-30 cells (100X) (0-5/hpf); Ovalocytes SLIGHT = 2-5 cells (100X) (0-1/hpf); Platelet Morphology Comment Appears Adequate
[2019-04-06 20:09] LABS: Wet Prep Clue Cells Clue Cells Absent (None Seen); Wet Prep Trichomonas Trichomonas Absent (None Seen)
[2019-04-06 20:34] LABS: Bilirubin Negative (Negative); Blood, Urine Negative (Negative); Clarity Clear (Clear); Glucose, Urine (Dipstick) Negative (Negative); Leukocyte Negative (Negative); Nitrite Negative (Negative); Protein, Urine (Dipstick) Negative (Neg-Trace); Urobilinogen 0.2 mg/dL (Less than 2)
[2019-04-07 14:37] LABS: Chlamydia by PCR Not Detected (NotDetected); GC by PCR Not Detected (NotDetected)
== END 2019-04-06 21:10 | disposition left against medical advice (07) ==
LOC: NAV ERS 18:35
DX: N89.8 Other specified noninflammatory disorders of vagina (principal); R10.2 Pelvic and perineal pain; R11.2 Nausea with vomiting, unspecified; D50.9 Iron deficiency anemia, unspecified; K21.9 Gastro-esophageal reflux disease without esophagitis; F41.9 Anxiety disorder, unspecified; F32.9 Major depressive disorder, single episode, unspecified
CPT/HCPCS: 80048; 81003; 85025; 87210; 87491; 87591; 96372; 99284; J2550

== ENCOUNTER 2019-04-07 11:00 | Emergency (ER) | payer OTHER ==
--- NOTE | 2019-04-07 15:03 | ULT ---
OB ULTRASOUND: Date: 04/07/19 HISTORY: Lower left-sided pelvic pain. FINDINGS: Real-time imaging of the pelvis shows a single, viable intrauterine . heart rate is 16 6 beats/minute. position is variable. Placenta is difficult to localize at this stage of gestat ion, although appears to be more fundal in location. measurements are as follows: BPD: 2.3 cm, 13 weeks/5 days HC: 8.6 cm, 13 weeks/5 days AC: 7.1 cm, 13 weeks/4 days FL: 1.2 cm, 13 weeks/3 days No evidence of any subchorionic bleed identified. The right and left ovaries are unremarkable in appearance. IMPRESSION: Single, viable intrauterine in variable presentation. Overall measurements corresponding to gestational age of 13 weeks/3 days with estimated date of delivery of 10/10/2019. No signs of any glover bchorionic bleed. No free fluid in the pelvis or other findings. POS: [facility]
== END 2019-04-07 14:12 | disposition home or self-care (01) ==
LOC: NAV ERS 11:00
DX: O26.891 Other specified pregnancy related conditions, first trimester (principal); R10.32 Left lower quadrant pain; O99.011 Anemia complicating pregnancy, first trimester; O99.611 Diseases of the digestive system complicating pregnancy, first trimester; K21.9 Gastro-esophageal reflux disease without esophagitis; O99.341 Other mental disorders complicating pregnancy, first trimester; F32.9 Major depressive disorder, single episode, unspecified; F41.9 Anxiety disorder, unspecified; Z3A.13 13 weeks gestation of pregnancy
CPT/HCPCS: 76815

== ENCOUNTER 2019-04-12 13:51 | Emergency (ER) | payer OTHER | END 2019-04-12 14:20 | disposition home or self-care (01) | LOC: NAV ERS 13:51 | DX: O99.511 Diseases of the respiratory system complicating pregnancy, first trimester (principal); J06.9 Acute upper respiratory infection, unspecified; O99.011 Anemia complicating pregnancy, first trimester; D50.9 Iron deficiency anemia, unspecified; O99.611 Diseases of the digestive system complicating pregnancy, first trimester; K21.9 Gastro-esophageal reflux disease without esophagitis; O99.341 Other mental disorders complicating pregnancy, first trimester; F32.9 Major depressive disorder, single episode, unspecified; F41.9 Anxiety disorder, unspecified; Z79.899 Other long term (current) drug therapy; Z3A.13 13 weeks gestation of pregnancy | CPT/HCPCS: 99281 ==

== ENCOUNTER 2019-04-15 11:53 | Emergency (ER) | payer OTHER | END 2019-04-15 13:00 | disposition home or self-care (01) | LOC: NAV ERS 11:53 | DX: O99.511 Diseases of the respiratory system complicating pregnancy, first trimester (principal); J06.9 Acute upper respiratory infection, unspecified; O99.011 Anemia complicating pregnancy, first trimester; D50.9 Iron deficiency anemia, unspecified; O99.611 Diseases of the digestive system complicating pregnancy, first trimester; K21.9 Gastro-esophageal reflux disease without esophagitis; O99.341 Other mental disorders complicating pregnancy, first trimester; F41.9 Anxiety disorder, unspecified; F32.9 Major depressive disorder, single episode, unspecified; Z79.899 Other long term (current) drug therapy; Z3A.13 13 weeks gestation of pregnancy | CPT/HCPCS: 87804; 99283 ==

== ENCOUNTER 2019-04-23 22:09 | Emergency (ER) | payer OTHER ==
[2019-04-23 22:53] LABS: #Eosinphils 0.2 thou/uL (0.0-0.7); #Lymphocytes 1.9 thou/uL (1.20-3.40); #Monocytes 0.3 thou/uL (0.11-0.59); #Neutrophils 3.1 thou/uL (1.40-6.50); %Basophils 0.5 % (0.0-1.0); %Eosinophils 2.8 % (0.0-10.0); %Lymphocytes 35.5 % (21.0-51.0); %Monocytes 4.6 % (0.0-10.0); %Neutrophils 56.6 % (42.0-75.0); Hemoglobin 8.7 g/dL (12.0-16.0); Hypochromia MODERATE=16-30 cells (100X) (0-5/hpf); MDiff Complete? YES; Mean Corpuscular HGB CONC 30.3 g/dL (32.0-36.0); Mean Corpuscular Hemoglobin 21.1 pg (27.0-31.0); Mean Corpuscular Volume 69.7 fL (78.0-98.0); Mean Platelet Volume 5.2 fL (7.4-10.4); Microcytosis MODERATE=15-30 cells (100X) (0-5/hpf); Ovalocytes MODERATE= 6-15 cells (100X) (0-1/hpf); Platelet Count 375 thou/uL (130-400); Platelet Morphology Comment Appears Adequate; RBC Distribution Width 14.2 % (11.5-14.5); Tear Drops SLIGHT = 2-5 cells (100X) (0-1/hpf); White Blood Cell (WBC) Count 5.5 thou/uL (4.8-10.8)
[2019-04-23 22:55] LABS: Anion Gap 15 mmol/L (10-20); BUN (Urea Nitrogen) 13 mg/dL (7.0-18.7); Calc. Creatinine Clearance 0 mL/min (70-130); Calcium 9.2 mg/dL (7.8-10.44); Carbon Dioxide 23 mmol/L (22-29); Chloride 102 mmol/L (98-107); Estimated GFR-MDRD Greater than 90; Glucose 86 mg/dL (70-105); Potassium 3.6 mmol/L (3.5-5.1); Sodium 136 mmol/L (136-145)
[2019-04-23 23:18] LABS: Prothrombin Time 13.6 SEC (12.0-14.7)
== END 2019-04-23 23:12 | disposition short-term general hospital (02) ==
LOC: NAV ERS 22:09
DX: O20.0 Threatened abortion (principal); O99.013 Anemia complicating pregnancy, third trimester; O99.340 Other mental disorders complicating pregnancy, unspecified trimester; F41.9 Anxiety disorder, unspecified; F32.9 Major depressive disorder, single episode, unspecified; Z87.440 Personal history of urinary (tract) infections; Z3A.15 15 weeks gestation of pregnancy
CPT/HCPCS: 36415; 80048; 84702; 85025; 85610; 85730; 99284

== ENCOUNTER 2019-05-09 11:58 | Emergency (ER) | payer OTHER ==
[2019-05-09 13:22] LABS: Bilirubin Negative (Negative); Blood, Urine Negative (Negative); Clarity Slightly Cloudy (Clear); Glucose, Urine (Dipstick) Negative (Negative); Leukocyte Trace (Negative); Nitrite Negative (Negative); Protein, Urine (Dipstick) Negative (Neg-Trace); Urobilinogen 0.2 mg/dL (Less than 2)
[2019-05-09 13:25] LABS: Bacteria/HPF 2+ HPF (None Seen); RBC/HPF 0-3 HPF (0-3)
[2019-05-09] MEDS ORDERED: Lidocaine 1% (PF) 30 ML VIAL ONE (14:37)
[2019-05-09] MEDS ORDERED: cefTRIAXone\\ROCEPHIN 1 GM VIAL ONE (14:37)
== END 2019-05-09 15:01 | disposition home or self-care (01) ==
LOC: NAV ERS 11:58
DX: O23.42 Unspecified infection of urinary tract in pregnancy, second trimester (principal); O99.89 Other specified diseases and conditions complicating pregnancy, childbirth and the puerperium; O99.512 Diseases of the respiratory system complicating pregnancy, second trimester; O99.612 Diseases of the digestive system complicating pregnancy, second trimester; K21.9 Gastro-esophageal reflux disease without esophagitis; O99.342 Other mental disorders complicating pregnancy, second trimester; F41.9 Anxiety disorder, unspecified; F32.9 Major depressive disorder, single episode, unspecified; Z3A.18 18 weeks gestation of pregnancy
CPT/HCPCS: 81003; 81015; 87086; 96372; 99284; J0696; J2001

== ENCOUNTER 2019-05-12 16:29 | Emergency (ER) | payer OTHER ==
[2019-05-12 16:58] LABS: Bilirubin Negative (Negative); Blood, Urine Trace (Negative); Clarity Clear (Clear); Glucose, Urine (Dipstick) Negative (Negative); Leukocyte Trace (Negative); Nitrite Negative (Negative); Protein, Urine (Dipstick) Negative (Neg-Trace); Urobilinogen 0.2 mg/dL (Less than 2)
[2019-05-12 17:02] LABS: Bacteria/HPF Rare-Few HPF (None Seen); RBC/HPF 0-3 HPF (0-3)
--- NOTE | 2019-05-12 18:08 | ULT ---
OB ULTRASOUND: History: Vaginal discharge. Assess ALBERT. FINDINGS/IMPRESSION: Viable intrauterine gestation. heart rate: 158 Placenta: Anterior fundal Gestational age by ultrasound biometry: 18 weeks 0 days ALBERT: 13.1 cm POS: [facility]
== END 2019-05-12 17:44 | disposition home or self-care (01) ==
LOC: NAV ERS 16:29
DX: O20.0 Threatened abortion (principal); O99.012 Anemia complicating pregnancy, second trimester; O99.512 Diseases of the respiratory system complicating pregnancy, second trimester; J45.909 Unspecified asthma, uncomplicated; O99.612 Diseases of the digestive system complicating pregnancy, second trimester; K21.9 Gastro-esophageal reflux disease without esophagitis; O99.342 Other mental disorders complicating pregnancy, second trimester; F41.9 Anxiety disorder, unspecified; F32.9 Major depressive disorder, single episode, unspecified; Z79.899 Other long term (current) drug therapy; Z3A.18 18 weeks gestation of pregnancy
CPT/HCPCS: 76815; 81003; 81015

== ENCOUNTER 2019-05-25 21:10 | Emergency (ER) | payer OTHER ==
[2019-05-25 21:54] LABS: Bilirubin Negative (Negative); Blood, Urine Negative (Negative); Clarity Clear (Clear); Glucose, Urine (Dipstick) Negative (Negative); Leukocyte Trace (Negative); Nitrite Negative (Negative); Protein, Urine (Dipstick) Negative (Neg-Trace); Urobilinogen 0.2 mg/dL (Less than 2)
[2019-05-25 21:55] LABS: #Eosinphils 0.1 thou/uL (0.0-0.7); #Lymphocytes 1.8 thou/uL (1.20-3.40); #Monocytes 0.4 thou/uL (0.11-0.59); #Neutrophils 4.6 thou/uL (1.40-6.50); %Basophils 0.4 % (0.0-1.0); %Eosinophils 1.8 % (0.0-10.0); %Lymphocytes 25.9 % (21.0-51.0); %Monocytes 6.1 % (0.0-10.0); %Neutrophils 65.9 % (42.0-75.0); Mean Corpuscular Hemoglobin 21.2 pg (27.0-31.0); Mean Corpuscular Volume 70.7 fL (78.0-98.0); Mean Platelet Volume 5.9 fL (7.4-10.4); Platelet Count 271 thou/uL (130-400); RBC Distribution Width 14.7 % (11.5-14.5); Red Blood Cell (RBC) Count 3.76 mill/uL (4.20-5.40)
[2019-05-25 22:04] LABS: ALT (SGPT) 9 U/L (8-55); AST (SGOT) 23 U/L (5-34); Albumin 3.5 g/dL (3.5-5.0); Alkaline Phosphatase 55 U/L (40-110); Anion Gap 14 mmol/L (10-20); BUN (Urea Nitrogen) 8 mg/dL (7.0-18.7); Bilirubin, Total 0.2 mg/dL (0.2-1.2); Calc. Creatinine Clearance 0 mL/min (70-130); Calcium 8.4 mg/dL (7.8-10.44); Carbon Dioxide 18 mmol/L (22-29); Chloride 107 mmol/L (98-107); Estimated GFR-MDRD Greater than 90; Globulin 3.4 g/dL (2.4-3.5); Glucose 82 mg/dL (70-105); Lipase 49 U/L (8-78); Potassium 3.3 mmol/L (3.5-5.1); Protein, Total 6.9 g/dL (6.0-8.3); Sodium 136 mmol/L (136-145)
[2019-05-25 22:16] LABS: Bacteria/HPF Rare-Few HPF (None Seen); RBC/HPF None Seen HPF (0-3); WBC/HPF 0-3 HPF (0-3)
[2019-05-26 00:21] LABS: Hypochromia SLIGHT = 6-15 cells (100X) (0-5/hpf); MDiff Complete? YES; Microcytosis MODERATE=15-30 cells (100X) (0-5/hpf); Ovalocytes SLIGHT = 2-5 cells (100X) (0-1/hpf); Platelet Morphology Comment Appears Adequate; Poikilocytosis SLIGHT = 6-15 cells (100X) (0-5/hpf)
== END 2019-05-25 22:55 | disposition short-term general hospital (02) ==
LOC: NAV ERS 21:10
DX: O46.92 Antepartum hemorrhage, unspecified, second trimester (principal); O99.012 Anemia complicating pregnancy, second trimester; O99.512 Diseases of the respiratory system complicating pregnancy, second trimester; O99.612 Diseases of the digestive system complicating pregnancy, second trimester; O99.342 Other mental disorders complicating pregnancy, second trimester; F32.9 Major depressive disorder, single episode, unspecified; F41.9 Anxiety disorder, unspecified; Z79.899 Other long term (current) drug therapy; Z3A.20 20 weeks gestation of pregnancy
CPT/HCPCS: 80053; 81003; 81015; 83690; 85025; 87086; 99284

== ENCOUNTER 2019-05-26 13:43 | Emergency (ER) | payer OTHER ==
[2019-05-26 14:34] LABS: Bilirubin Negative (Negative); Blood, Urine Negative (Negative); Clarity Slightly Cloudy (Clear); Glucose, Urine (Dipstick) Negative (Negative); Leukocyte Trace (Negative); Nitrite Negative (Negative); Protein, Urine (Dipstick) Negative (Neg-Trace); Urobilinogen 0.2 mg/dL (Less than 2)
[2019-05-26 14:43] LABS: Bacteria/HPF 1+ HPF (None Seen); RBC/HPF 0-3 HPF (0-3); WBC/HPF 0-3 HPF (0-3)
[2019-05-26 15:06] LABS: Anion Gap 15 mmol/L (10-20); Globulin 3.9 g/dL (2.4-3.5)
[2019-05-26 15:10] LABS: ALT (SGPT) 10 U/L (8-55); AST (SGOT) 23 U/L (5-34); Albumin 4.2 g/dL (3.5-5.0); Alkaline Phosphatase 67 U/L (40-110); BUN (Urea Nitrogen) 8 mg/dL (7.0-18.7); Bilirubin, Total 0.4 mg/dL (0.2-1.2); Calc. Creatinine Clearance 0 mL/min (70-130); Calcium 9.1 mg/dL (7.8-10.44); Carbon Dioxide 23 mmol/L (22-29); Chloride 105 mmol/L (98-107); Estimated GFR-MDRD Greater than 90; Glucose 79 mg/dL (70-105); Potassium 2.9 mmol/L (3.5-5.1); Protein, Total 8.1 g/dL (6.0-8.3); Sodium 140 mmol/L (136-145)
[2019-05-26 15:17] LABS: Anisocytosis SLIGHT = 6-15 cells (100X) (0-5/hpf); Band 2 % (5-11); Elliptocytes SLIGHT = 2-5 cells (100X) (0-1/hpf); Eosinophils 2 % (0-10); Hemoglobin 9.6 g/dL (12.0-16.0); Hypochromia SLIGHT = 6-15 cells (100X) (0-5/hpf); Lymphocytes 9 % (21-51); MDiff Complete? YES; Mean Corpuscular HGB CONC 30.3 g/dL (32.0-36.0); Mean Corpuscular Hemoglobin 21.5 pg (27.0-31.0); Microcytosis SLIGHT = 6-15 cells (100X) (0-5/hpf); Monocytes 2 % (0-10); Neutrophil 84 % (42-75); Platelet Count 308 thou/uL (130-400); Platelet Morphology Comment Appears Adequate; RBC Distribution Width 14.4 % (11.5-14.5); Reactive Lymphocytes 1 % (0-10); Red Blood Cell (RBC) Count 4.46 mill/uL (4.20-5.40); White Blood Cell (WBC) Count 7.3 thou/uL (4.8-10.8)
== END 2019-05-26 15:02 | disposition short-term general hospital (02) ==
LOC: NAV ERS 13:43
DX: O47.02 False labor before 37 completed weeks of gestation, second trimester (principal); O99.012 Anemia complicating pregnancy, second trimester; D50.9 Iron deficiency anemia, unspecified; O99.512 Diseases of the respiratory system complicating pregnancy, second trimester; J45.909 Unspecified asthma, uncomplicated; O99.342 Other mental disorders complicating pregnancy, second trimester; F32.9 Major depressive disorder, single episode, unspecified; F41.9 Anxiety disorder, unspecified; O99.612 Diseases of the digestive system complicating pregnancy, second trimester; K21.9 Gastro-esophageal reflux disease without esophagitis; Z3A.20 20 weeks gestation of pregnancy
CPT/HCPCS: 80053; 81003; 81015; 85025

== ENCOUNTER 2019-05-30 11:59 | Emergency (ER) | payer OTHER ==
[2019-05-30 12:53] LABS: #Eosinphils 0.2 thou/uL (0.0-0.7); #Lymphocytes 1.2 thou/uL (1.20-3.40); #Monocytes 0.3 thou/uL (0.11-0.59); #Neutrophils 4.6 thou/uL (1.40-6.50); %Basophils 0.3 % (0.0-1.0); %Eosinophils 2.5 % (0.0-10.0); %Monocytes 4.7 % (0.0-10.0); %Neutrophils 73.5 % (42.0-75.0); Hemoglobin 9.4 g/dL (12.0-16.0); Mean Corpuscular HGB CONC 29.6 g/dL (32.0-36.0); Mean Corpuscular Hemoglobin 21.1 pg (27.0-31.0); Mean Corpuscular Volume 71.2 fL (78.0-98.0); Mean Platelet Volume 5.6 fL (7.4-10.4); Platelet Count 278 thou/uL (130-400); RBC Distribution Width 14.4 % (11.5-14.5); Red Blood Cell (RBC) Count 4.47 mill/uL (4.20-5.40); White Blood Cell (WBC) Count 6.2 thou/uL (4.8-10.8)
[2019-05-30 12:55] LABS: ALT (SGPT) 9 U/L (8-55); AST (SGOT) 18 U/L (5-34); Albumin 3.7 g/dL (3.5-5.0); Alkaline Phosphatase 70 U/L (40-110); Anion Gap 15 mmol/L (10-20); BUN (Urea Nitrogen) 7 mg/dL (7.0-18.7); Bilirubin, Total 0.2 mg/dL (0.2-1.2); Calc. Creatinine Clearance 0 mL/min (70-130); Calcium 8.8 mg/dL (7.8-10.44); Carbon Dioxide 21 mmol/L (22-29); Chloride 105 mmol/L (98-107); Estimated GFR-MDRD Greater than 90; Globulin 3.7 g/dL (2.4-3.5); Glucose 85 mg/dL (70-105); Potassium 3.5 mmol/L (3.5-5.1); Protein, Total 7.4 g/dL (6.0-8.3); Sodium 137 mmol/L (136-145)
== END 2019-05-30 12:53 | disposition short-term general hospital (02) ==
LOC: NAV ERS 11:59
DX: O99.89 Other specified diseases and conditions complicating pregnancy, childbirth and the puerperium (principal); R10.9 Unspecified abdominal pain; O99.012 Anemia complicating pregnancy, second trimester; D50.9 Iron deficiency anemia, unspecified; O99.612 Diseases of the digestive system complicating pregnancy, second trimester; K21.9 Gastro-esophageal reflux disease without esophagitis; O99.512 Diseases of the respiratory system complicating pregnancy, second trimester; J45.909 Unspecified asthma, uncomplicated; O99.342 Other mental disorders complicating pregnancy, second trimester; F41.9 Anxiety disorder, unspecified; F32.9 Major depressive disorder, single episode, unspecified; Z79.899 Other long term (current) drug therapy; Z3A.21 21 weeks gestation of pregnancy
CPT/HCPCS: 80053; 85025; 99284

== ENCOUNTER 2019-07-01 13:57 | Emergency (ER) | payer OTHER ==
[2019-07-01 15:09] LABS: #Eosinphils 0.1 thou/uL (0.0-0.7); #Lymphocytes 1.4 thou/uL (1.20-3.40); #Monocytes 0.3 thou/uL (0.11-0.59); #Neutrophils 4.8 thou/uL (1.40-6.50); %Basophils 0.3 % (0.0-1.0); %Eosinophils 1.9 % (0.0-10.0); %Lymphocytes 21.1 % (21.0-51.0); %Monocytes 4.9 % (0.0-10.0); %Neutrophils 71.9 % (42.0-75.0); Hemoglobin 8.1 g/dL (12.0-16.0); Mean Corpuscular HGB CONC 29.9 g/dL (32.0-36.0); Mean Corpuscular Hemoglobin 20.5 pg (27.0-31.0); Mean Corpuscular Volume 68.6 fL (78.0-98.0); Platelet Count 275 thou/uL (130-400); RBC Distribution Width 14.4 % (11.5-14.5); Red Blood Cell (RBC) Count 3.95 mill/uL (4.20-5.40); White Blood Cell (WBC) Count 6.6 thou/uL (4.8-10.8)
[2019-07-01 15:19] LABS: ALT (SGPT) 8 U/L (8-55); AST (SGOT) 19 U/L (5-34); Albumin 3.4 g/dL (3.5-5.0); Alkaline Phosphatase 81 U/L (40-110); Anion Gap 13 mmol/L (10-20); BUN (Urea Nitrogen) 9 mg/dL (7.0-18.7); Bilirubin, Total 0.2 mg/dL (0.2-1.2); Calc. Creatinine Clearance 0 mL/min (70-130); Calcium 8.3 mg/dL (7.8-10.44); Carbon Dioxide 21 mmol/L (22-29); Chloride 106 mmol/L (98-107); Estimated GFR-MDRD Greater than 90; Globulin 3.2 g/dL (2.4-3.5); Glucose 88 mg/dL (70-105); Potassium 3.4 mmol/L (3.5-5.1); Protein, Total 6.6 g/dL (6.0-8.3); Sodium 137 mmol/L (136-145)
[2019-07-01] MEDS ORDERED: Ondansetron PF 4 MG/2 ML Vial ONE (16:23)
[2019-07-01] MEDS ORDERED: Sodium Chloride 0.9% 1,000 ML ONE (16:23)
[2019-07-01] MEDS ORDERED: Morphine 2 MG/ML SYRINGE ONE ×2 (16:23→17:20)
[2019-07-01] MEDS ORDERED: Morphine 4 MG/ML VIAL ONE (17:18)
== END 2019-07-01 19:04 | disposition short-term general hospital (02) ==
LOC: NAV ERS 13:57
DX: O99.89 Other specified diseases and conditions complicating pregnancy, childbirth and the puerperium (principal); R10.2 Pelvic and perineal pain; O21.2 Late vomiting of pregnancy; R19.7 Diarrhea, unspecified; Z3A.25 25 weeks gestation of pregnancy; O99.512 Diseases of the respiratory system complicating pregnancy, second trimester; J45.909 Unspecified asthma, uncomplicated; O99.612 Diseases of the digestive system complicating pregnancy, second trimester; K21.9 Gastro-esophageal reflux disease without esophagitis; O99.012 Anemia complicating pregnancy, second trimester; O99.342 Other mental disorders complicating pregnancy, second trimester; F32.9 Major depressive disorder, single episode, unspecified; F41.9 Anxiety disorder, unspecified
CPT/HCPCS: 80053; 85025; 96374; 96375; 96376; J2270; J2405; J7050

== ENCOUNTER 2019-11-22 19:18 | Emergency (ER) | payer OTHER ==
--- NOTE | 2019-11-22 20:21 | RAD ---
Chest AP view INDICATION: Chest pain COMPARISON: April 30, 2018 FINDINGS: Lungs: The lungs are clear Cardiac silhouette: The cardiomediastinal silhouette appears within normal limits. Pulmonary vasculature: Normal Pleural spaces: No pleural effusion or pneumothorax is demonstrated. Upper abdomen: No abnormality seen. Osseous structures: No acute osseous abnormality. Additional findings: None. IMPRESSION: No acute cardiopulmonary abnormality.
[2019-11-22 20:27] LABS: #Eosinphils 0.1 thou/uL (0.0-0.7); #Lymphocytes 2.5 thou/uL (1.20-3.40); #Monocytes 0.3 thou/uL (0.11-0.59); #Neutrophils 2.6 thou/uL (1.40-6.50); %Basophils 0.6 % (0.0-1.0); %Eosinophils 1.8 % (0.0-10.0); %Lymphocytes 45.7 % (21.0-51.0); %Monocytes 4.6 % (0.0-10.0); %Neutrophils 47.4 % (42.0-75.0); Hemoglobin 10.4 g/dL (12.0-16.0); Mean Corpuscular HGB CONC 29.2 g/dL (32.0-36.0); Mean Corpuscular Hemoglobin 20.8 pg (27.0-31.0); Mean Corpuscular Volume 71.1 fL (78.0-98.0); Mean Platelet Volume 6.4 fL (7.4-10.4); Platelet Count 336 thou/uL (130-400); RBC Distribution Width 13.8 % (11.5-14.5); White Blood Cell (WBC) Count 5.4 thou/uL (4.8-10.8)
[2019-11-22 20:30] LABS: ALT (SGPT) 15 U/L (8-55); AST (SGOT) 21 U/L (5-34); Albumin 4.1 g/dL (3.5-5.0); Alkaline Phosphatase 50 U/L (40-110); Anion Gap 14 mmol/L (10-20); BUN (Urea Nitrogen) 15 mg/dL (7.0-18.7); Bilirubin, Total 0.2 mg/dL (0.2-1.2); Calc. Creatinine Clearance 0 mL/min (70-130); Carbon Dioxide 25 mmol/L (22-29); Chloride 106 mmol/L (98-107); Estimated GFR-MDRD Greater than 90; Globulin 3.3 g/dL (2.4-3.5); Glucose 74 mg/dL (70-105); Lipase 90 U/L (8-78); Potassium 3.5 mmol/L (3.5-5.1); Protein, Total 7.4 g/dL (6.0-8.3); Sodium 141 mmol/L (136-145)
[2019-11-22] MEDS ORDERED: Aspirin Chewable 81 MG TAB ONE (20:34)
[2019-11-22 22:11] LABS: MDiff Complete? YES; Microcytosis MODERATE=15-30 cells (100X) (0-5/hpf); Platelet Morphology Comment Appears Adequate
== END 2019-11-22 21:06 | disposition home or self-care (01) ==
LOC: NAV ERS 19:18
DX: R07.9 Chest pain, unspecified (principal); D50.9 Iron deficiency anemia, unspecified; K21.9 Gastro-esophageal reflux disease without esophagitis; J45.909 Unspecified asthma, uncomplicated; F41.9 Anxiety disorder, unspecified; F32.9 Major depressive disorder, single episode, unspecified; Z79.899 Other long term (current) drug therapy
CPT/HCPCS: 36415; 71045; 80053; 83690; 83880; 84484; 85025; 93005; 94760

== ENCOUNTER 2023-05-03 18:22 | Emergency (ER) | payer OTHER, SELFPAY ==
[2023-05-03] MEDS ORDERED: Ketorolac Tromethamine 30 MG/ML VIAL ONE (19:35)
[2023-05-03] MEDS ORDERED: Sodium Chloride 0.9% 1,000 ML ONE (19:36)
[2023-05-03] MEDS ORDERED: Promethazine HCl 25 MG/ML VIAL ONE (19:36)
[2023-05-03 20:20] LABS: #Basophils 0.1 thou/uL (0.0-0.2); #Eosinphils 0.1 thou/uL (0.0-0.7); #Lymphocytes 2.2 thou/uL (1.20-3.40); #Monocytes 0.4 thou/uL (0.11-0.59); #Neutrophils 3.3 thou/uL (1.40-6.50); %Basophils 1.4 % (0.0-1.0); %Eosinophils 1.1 % (0.0-10.0); %Lymphocytes 36.5 % (21.0-51.0); %Monocytes 6.8 % (0.0-10.0); %Neutrophils 54.2 % (42.0-75.0); Hematocrit 35.4 % (36.0-47.0); Hemoglobin 10.6 g/dL (12.0-16.0); Mean Corpuscular HGB CONC 29.9 g/dL (32.0-36.0); Mean Corpuscular Hemoglobin 20.5 pg (27.0-31.0); Mean Corpuscular Volume 68.7 fl (78.0-98.0); Mean Platelet Volume 5.5 fL (7.4-10.4); Platelet Count 308 10x3/uL (130-400); RBC Distribution Width 16.1 % (11.5-14.5); Red Blood Cell (RBC) Count 5.15 mill/uL (4.20-5.40); White Blood Cell (WBC) Count 6.1 10x3/uL (4.8-10.8)
[2023-05-03 20:27] LABS: Bilirubin Negative (Negative); Blood, Urine Large (Negative); Clarity Cloudy (Clear); Glucose, Urine (Dipstick) Negative (Negative); Ketone, Urine Negative (Negative); Leukocyte Small (Negative); Nitrite Negative (Negative); Protein, Urine (Dipstick) 100 mg/dL (Neg-Trace); Urobilinogen 0.2 mg/dL (Less than 2); pH, Urine 6.5 (5.0-9.0)
[2023-05-03 20:28] LABS: CAUTI Indications for Culture Pelvic or flank pain
[2023-05-03 20:30] LABS: ALT (SGPT) 12 U/L (8-55); AST (SGOT) 24 U/L (5-34); Albumin 4.4 g/dL (3.5-5.0); Alkaline Phosphatase 54 U/L (40-110); Anion Gap 16 mmol/L (10-20); BUN (Urea Nitrogen) 11 mg/dL (7.0-18.7); Bilirubin, Total 0.4 mg/dL (0.2-1.2); Calc. Creatinine Clearance 0 mL/min (70-130); Calcium 9.4 mg/dL (7.8-10.44); Carbon Dioxide 20 mmol/L (22-29); Chloride 106 mmol/L (98-107); Estimated GFR 95; Globulin 4.1 g/dL (2.4-3.5); Glucose 88 mg/dL (70-105); Potassium 3.7 mmol/L (3.5-5.1); Protein, Total 8.5 g/dL (6.0-8.3); Sodium 138 mmol/L (136-145)
[2023-05-03 20:31] LABS: Bacteria/HPF 4+ HPF (None Seen); RBC/HPF Greater than 50 HPF (0-3); Squamous Epithelial 21-50 HPF (0-3)
[2023-05-03 20:33] LABS: Trichomonas/HPF 3+ HPF (None Seen)
[2023-05-03 20:34] LABS: Urine Culture Reflex Yes Yes
== END 2023-05-03 21:30 | disposition home or self-care (01) ==
LOC: NAV ERS 18:22
DX: K51.90 Ulcerative colitis, unspecified, without complications (principal)
CPT/HCPCS: 36415; 80053; 81001; 83605; 85025; 87086; 96361; 96374; 96375; J1885; J2550; J7050

== ENCOUNTER 2023-05-28 23:42 | Emergency (ER) | payer SELFPAY ==
[2023-05-29] MEDS ORDERED: Ondansetron PF 4 MG/2 ML Vial ONE (00:13)
[2023-05-29] MEDS ORDERED: fentaNYL 50 mcg/mL 1 mL Vial ONE ×2 (00:14→01:20)
[2023-05-29] MEDS ORDERED: Promethazine HCl 25 MG/ML VIAL ONE (00:18)
[2023-05-29 00:29] LABS: #Basophils 0.1 thou/uL (0.0-0.2); #Eosinphils 0.3 thou/uL (0.0-0.7); #Lymphocytes 2.1 thou/uL (1.20-3.40); #Monocytes 0.5 thou/uL (0.11-0.59); #Neutrophils 4.8 thou/uL (1.40-6.50); %Basophils 0.8 % (0.0-1.0); %Eosinophils 3.9 % (0.0-10.0); %Lymphocytes 26.6 % (21.0-51.0); %Monocytes 6.6 % (0.0-10.0); %Neutrophils 62.2 % (42.0-75.0); Hematocrit 35.1 % (36.0-47.0); Hemoglobin 10.5 g/dL (12.0-16.0); Mean Corpuscular Hemoglobin 20.5 pg (27.0-31.0); Mean Corpuscular Volume 68.3 fl (78.0-98.0); Mean Platelet Volume 5.6 fL (7.4-10.4); Platelet Count 473 10x3/uL (130-400); RBC Distribution Width 14.7 % (11.5-14.5); Red Blood Cell (RBC) Count 5.13 mill/uL (4.20-5.40); White Blood Cell (WBC) Count 7.8 10x3/uL (4.8-10.8)
[2023-05-29 00:42] LABS: CRP (Inflammatory) 3.24 mg/dL (= or < 0.5)
[2023-05-29 00:49] LABS: ALT (SGPT) 14 U/L (8-55); AST (SGOT) 30 U/L (5-34); Albumin 4.4 g/dL (3.5-5.0); Anion Gap 17 mmol/L (10-20); BUN (Urea Nitrogen) 6 mg/dL (7.0-18.7); Bilirubin, Total 0.5 mg/dL (0.2-1.2); Calc. Creatinine Clearance 0 mL/min (70-130); Calcium 9.5 mg/dL (7.8-10.44); Carbon Dioxide 22 mmol/L (22-29); Chloride 101 mmol/L (98-107); Estimated GFR 96; Globulin 5.7 g/dL (2.4-3.5); Glucose 93 mg/dL (70-105); Potassium 3.1 mmol/L (3.5-5.1); Protein, Total 10.1 g/dL (6.0-8.3); Sodium 137 mmol/L (136-145)
[2023-05-29 00:50] LABS: Alkaline Phosphatase 62 U/L (40-110)
[2023-05-29 01:06] LABS: Bilirubin Small (Negative); Blood, Urine Trace (Negative); Clarity Clear (Clear); Glucose, Urine (Dipstick) Negative (Negative); Ketone, Urine > or equal to 80 mg/dL (Negative); Leukocyte Small (Negative); Nitrite Negative (Negative); Pregnancy Test - Urine (BHCG) Negative (Negative); Pregu Control Background? CLEAR/WHITE (CLR/WHITE); Pregu Control Bar Appear? YES (CONTROL BAR); Protein, Urine (Dipstick) 30 mg/dL (Neg-Trace); Specific Gravity, Urine 1.025 (1.005-1.030); Urobilinogen 0.2 mg/dL (Less than 2); pH, Urine 6.5 (5.0-9.0)
[2023-05-29 01:09] LABS: Bacteria/HPF None Seen HPF (None Seen); CAUTI Indications for Culture Pelvic or flank pain; RBC/HPF 0-3 HPF (0-3); Urine Culture Reflex No No
[2023-05-29 01:15] LABS: Amphetamine Detected (NotDetected); Barbiturates Screen Not Detected (NotDetected); Benzodiazepine Screen Not Detected (NotDetected); Cocaine Metabolite Screen Not Detected (NotDetected); Methadone Not Detected (NotDetected); Methamphetamine Detected (NotDetected); Opiate Screen Not Detected (NotDetected); Oxycodone Screen Not Detected (NotDetected); Phencyclidine (PCP) Not Detected (NotDetected); THC/Cannabinoid Screen Not Detected (NotDetected); Tricyclic Screen Not Detected (NotDetected)
[2023-05-29] MEDS ORDERED: methylPREDNISolone Sod Succ/PF 125 MG/2 ML VIAL ONE (01:20)
[2023-05-29] MEDS ORDERED: Sodium Chloride 0.9% 1,000 ML ONE (01:21)
[2023-05-29] MEDS ORDERED: Potassium Chloride 10 MEQ/100 ML PREMIX BAG ONE (01:21)
[2023-05-29] MEDS ORDERED: Potassium Chloride 20 MEQ TAB ONE (01:45)
== END 2023-05-29 02:46 | disposition home or self-care (01) ==
LOC: NAV ERS 23:42
DX: K51.90 Ulcerative colitis, unspecified, without complications (principal); E87.6 Hypokalemia
CPT/HCPCS: 80053; 80306; 81001; 81025; 83690; 85025; 86140; 96365; 96367; 96375; 96376; J2405; J2550; J2930; J3010; J3480; J7050

== ENCOUNTER 2023-09-30 20:27 | Emergency (ER) | payer OTHER ==
[2023-09-30 22:03] LABS: #Basophils 0.1 thou/uL (0.0-0.2); #Lymphocytes 2.3 thou/uL (1.20-3.40); #Monocytes 0.7 thou/uL (0.11-0.59); #Neutrophils 7.8 thou/uL (1.40-6.50); %Eosinophils 0.1 % (0.0-10.0); %Lymphocytes 21.2 % (21.0-51.0); %Monocytes 6.4 % (0.0-10.0); %Neutrophils 71.3 % (42.0-75.0); Hematocrit 35.5 % (36.0-47.0); Hemoglobin 10.2 g/dL (12.0-16.0); Mean Corpuscular HGB CONC 28.8 g/dL (32.0-36.0); Mean Corpuscular Hemoglobin 22.4 pg (27.0-31.0); Mean Corpuscular Volume 77.9 fl (78.0-98.0); Mean Platelet Volume 5.7 fL (7.4-10.4); Platelet Count 214 10x3/uL (130-400); Red Blood Cell (RBC) Count 4.56 mill/uL (4.20-5.40); White Blood Cell (WBC) Count 10.9 10x3/uL (4.8-10.8)
[2023-09-30 22:09] LABS: ALT (SGPT) 42 U/L (8-55); AST (SGOT) 26 U/L (5-34); Albumin 4.5 g/dL (3.5-5.0); Alkaline Phosphatase 35 U/L (40-110); Anion Gap 19 mmol/L (10-20); BUN (Urea Nitrogen) 12 mg/dL (7.0-18.7); Bilirubin, Total 0.3 mg/dL (0.2-1.2); Calc. Creatinine Clearance 0 mL/min (70-130); Calcium 9.4 mg/dL (7.8-10.44); Carbon Dioxide 24 mmol/L (22-29); Chloride 101 mmol/L (98-107); Estimated GFR 100; Globulin 2.7 g/dL (2.4-3.5); Glucose 83 mg/dL (70-105); Potassium 3.7 mmol/L (3.5-5.1); Protein, Total 7.2 g/dL (6.0-8.3); Sodium 140 mmol/L (136-145)
[2023-09-30] MEDS ORDERED: methylPREDNISolone Sod Succ/PF 125 MG/2 ML VIAL ONE (22:23)
[2023-09-30] MEDS ORDERED: Promethazine HCl 25 MG/ML VIAL ONE (22:23)
[2023-09-30] MEDS ORDERED: HYDROcodone/Acetaminophen 10/325 mg Tablet ONE (22:47)
[2023-09-30 22:59] LABS: Bilirubin Negative (Negative); Blood, Urine Negative (Negative); Clarity Clear (Clear); Glucose, Urine (Dipstick) Negative (Negative); Ketone, Urine Negative (Negative); Leukocyte Negative (Negative); Nitrite Negative (Negative); Protein, Urine (Dipstick) Negative (Neg-Trace); Urobilinogen 0.2 mg/dL (Less than 2); pH, Urine 7.5 (5.0-9.0)
[2023-09-30] MEDS ORDERED: traMADol HCl 50 MG TAB ONE (23:02)
[2023-09-30 23:03] LABS: Bacteria/HPF None Seen HPF (None Seen); CAUTI Indications for Culture Pelvic or flank pain; RBC/HPF None Seen HPF (0-3); Squamous Epithelial None Seen HPF (0-3); WBC/HPF None Seen HPF (0-3)
[2023-09-30 23:04] LABS: Urine Culture Reflex No No
== END 2023-09-30 23:20 | disposition home or self-care (01) ==
LOC: NAV ERS 20:27
DX: K51.919 Ulcerative colitis, unspecified with unspecified complications (principal); R19.7 Diarrhea, unspecified
CPT/HCPCS: 80053; 81001; 85025; 86140; 96374; 96375; J2550; J2930

== ENCOUNTER 2024-03-31 14:26 | Emergency (ER) | payer OTHER ==
[2024-03-31 15:43] LABS: #Eosinophils 0.1 thou/uL (0.0-0.7); #Lymphocytes 1.3 thou/uL (1.20-3.40); #Monocytes 0.5 thou/uL (0.11-0.59); #Neutrophils 9.3 thou/uL (1.40-6.50); %Basophils 0.2 % (0.0-1.0); %Eosinophils 0.4 % (0.0-10.0); %Lymphocytes 11.2 % (21.0-51.0); %Monocytes 4.8 % (0.0-10.0); %Neutrophils 83.3 % (42.0-75.0); Hematocrit 35.4 % (36.0-47.0); Hemoglobin 10.6 g/dL (12.0-16.0); Mean Corpuscular Hemoglobin 21.4 pg (27.0-31.0); Mean Corpuscular Volume 71.3 fl (78.0-98.0); Mean Platelet Volume 5.3 fL (7.4-10.4); Platelet Count 305 10x3/uL (130-400); RBC Distribution Width 14.5 % (11.5-14.5); Red Blood Cell (RBC) Count 4.97 mill/uL (4.20-5.40); White Blood Cell (WBC) Count 11.2 10x3/uL (4.8-10.8)
[2024-03-31 15:45] LABS: BHCG - Serum POSITIVE (NEGATIVE); Pregs Control Bar Appear? YES (CONTROL BAR)
[2024-03-31 15:52] LABS: Anion Gap 19 mmol/L (10-20); BUN (Urea Nitrogen) 7 mg/dL (7.0-18.7); Calc. Creatinine Clearance 0 mL/min (70-130); Carbon Dioxide 20 mmol/L (22-29); Chloride 103 mmol/L (98-107); Estimated GFR 103; Glucose 90 mg/dL (70-105); Potassium 4.7 mmol/L (3.5-5.1); Sodium 137 mmol/L (136-145)
[2024-03-31] MEDS ORDERED: fentaNYL 50 mcg/mL 1 mL Vial ONE (15:55)
== END 2024-03-31 16:45 | disposition home or self-care (01) ==
LOC: NAV ERS 14:26
DX: S43.001A Unspecified subluxation of right shoulder joint, initial encounter (principal); I10 Essential (primary) hypertension; X50.1XXA Overexertion from prolonged static or awkward postures, initial encounter; Y93.89 Activity, other specified
CPT/HCPCS: 80048; 84703; 85025; 96374; J3010

== ENCOUNTER 2024-06-10 15:25 | Emergency (ER) | payer OTHER ==
[2024-06-10] MEDS ORDERED: Bupivacaine 0.5% 10 ML VIAL ONE (16:01)
== END 2024-06-10 16:16 | disposition home or self-care (01) ==
LOC: NAV ERS 15:25
DX: K04.4 Acute apical periodontitis of pulpal origin (principal); I10 Essential (primary) hypertension
CPT/HCPCS: 64400; J3490

== ENCOUNTER 2025-01-01 16:19 | Emergency (ER) | payer OTHER ==
[2025-01-01] MEDS ORDERED: Lidocaine Viscous Sol 2% 15 ml UD Cup ONE ×2 (17:55→19:55)
[2025-01-01] MEDS ORDERED: Mag-Al Plus 1200/1200/120 MG (30 mL) UDCUP ONE ×2 (17:55→19:55)
[2025-01-01 18:01] LABS: #Basophils 0.1 thou/uL (0.0-0.2); #Eosinophils 0.0 thou/uL (0.0-0.7); #Lymphocytes 1.5 thou/uL (1.20-3.40); #Monocytes 0.4 thou/uL (0.11-0.59); #Neutrophils 4.8 thou/uL (1.40-6.50); %Basophils 0.7 % (0.0-1.0); %Eosinophils 0.5 % (0.0-10.0); %Lymphocytes 22.7 % (21.0-51.0); %Monocytes 5.5 % (0.0-10.0); %Neutrophils 70.5 % (42.0-75.0); Hematocrit 36.8 % (36.0-47.0); Hemoglobin 11.0 g/dL (12.0-16.0); Mean Corpuscular Hemoglobin 21.6 pg (27.0-31.0); Mean Corpuscular Volume 72.3 fl (78.0-98.0); Platelet Count 305 10x3/uL (130-400); Red Blood Cell (RBC) Count 5.10 mill/uL (4.20-5.40); White Blood Cell (WBC) Count 6.8 10x3/uL (4.8-10.8)
[2025-01-01 18:12] LABS: BHCG - Serum Negative (NEGATIVE); Pregs Control Bar Appear? YES (CONTROL BAR)
[2025-01-01 18:15] LABS: ALT (SGPT) 47 U/L (Less than 34); AST (SGOT) 38 U/L (11-34); Albumin 4.1 g/dL (3.1-4.5); Alkaline Phosphatase 54 U/L (40-110); Anion Gap 16 mmol/L (10-20); BUN (Urea Nitrogen) 20 mg/dL (7.0-18.7); Bilirubin, Total 0.2 mg/dL (0.3-1.2); Calc. Creatinine Clearance 0 mL/min (70-130); Calcium 9.3 mg/dL (7.8-10.44); Carbon Dioxide 20 mmol/L (22-29); Chloride 107 mmol/L (98-107); Globulin 3.3 g/dL (2.4-3.5); Glucose 85 mg/dL (70-105); Potassium 4.3 mmol/L (3.5-5.1); Sodium 139 mmol/L (136-145)
[2025-01-01 18:16] LABS: Troponin I Less than 0.010 ng/mL (< 0.028)
[2025-01-01] MEDS ORDERED: Pantoprazole 40 MG VIAL ONE (19:12)
== END 2025-01-01 21:06 | disposition home or self-care (01) ==
LOC: NAV ERS 16:19
DX: R07.9 Chest pain, unspecified (principal); N30.10 Interstitial cystitis (chronic) without hematuria; I10 Essential (primary) hypertension; R29.700 NIHSS score 0; Z79.899 Other long term (current) drug therapy
CPT/HCPCS: 71046; 80053; 84484; 84703; 85025; 85379; 93005; 96361; 96365; 96375; J2470; J2550; J3010; J7030

== ENCOUNTER 2025-02-03 16:26 | Emergency (ER) | payer MEDICAID, OTHER ==
[2025-02-03] MEDS ORDERED: Pantoprazole 40 MG VIAL ONE (17:31)
[2025-02-03 17:57] LABS: ALT (SGPT) 17 U/L (Less than 34); AST (SGOT) 22 U/L (11-34); Albumin 4.4 g/dL (3.1-4.5); Alkaline Phosphatase 64 U/L (40-110); Anion Gap 15 mmol/L (10-20); BUN (Urea Nitrogen) 13 mg/dL (7.0-18.7); Bilirubin, Total 0.2 mg/dL (0.3-1.2); Calc. Creatinine Clearance 0 mL/min (70-130); Calcium 9.2 mg/dL (7.8-10.44); Carbon Dioxide 24 mmol/L (22-29); Chloride 104 mmol/L (98-107); Globulin 3.4 g/dL (2.4-3.5); Glucose 78 mg/dL (70-105); Lipase 62 U/L (8-78); Potassium 3.3 mmol/L (3.5-5.1); Sodium 140 mmol/L (136-145); Troponin I Less than 0.010 ng/mL (< 0.028)
[2025-02-03 18:03] LABS: BHCG - Serum Negative (NEGATIVE); Pregs Control Bar Appear? YES (CONTROL BAR)
[2025-02-03 18:05] LABS: #Basophils 0.0 thou/uL (0.0-0.2); #Eosinophils 0.1 thou/uL (0.0-0.7); #Lymphocytes 1.9 thou/uL (1.20-3.40); #Monocytes 0.3 thou/uL (0.11-0.59); #Neutrophils 2.5 thou/uL (1.40-6.50); %Basophils 0.1 % (0.0-1.0); %Eosinophils 1.8 % (0.0-10.0); %Lymphocytes 40.2 % (21.0-51.0); %Monocytes 6.5 % (0.0-10.0); %Neutrophils 51.3 % (42.0-75.0); Hematocrit 34.1 % (36.0-47.0); Hemoglobin 10.3 g/dL (12.0-16.0); Mean Corpuscular Hemoglobin 21.3 pg (27.0-31.0); Mean Corpuscular Volume 70.5 fl (78.0-98.0); Platelet Count 341 10x3/uL (130-400); Red Blood Cell (RBC) Count 4.84 mill/uL (4.20-5.40); White Blood Cell (WBC) Count 4.8 10x3/uL (4.8-10.8)
[2025-02-03 18:31] LABS: Glucose, Urine (Dipstick) Negative (Negative); Leukocyte Small (Negative); Protein, Urine (Dipstick) Negative (Neg-Trace); Specific Gravity, Urine 1.010 (1.005-1.030)
[2025-02-03 18:36] LABS: CAUTI Indications for Culture Pelvic or flank pain; RBC/HPF None Seen HPF (0-3); WBC/HPF 0-3 HPF (0-3)
[2025-02-03 18:37] LABS: Urine Culture Reflex No No
[2025-02-03 20:59] LABS: INR-International Normal Ratio 1.0; Prothrombin Time 13.4 sec (12.0-14.7)
[2025-02-03 21:00] LABS: PTT 32.5 sec (22.9-36.1)
[2025-02-03 21:05] LABS: Troponin I Less than 0.010 ng/mL (< 0.028)
== END 2025-02-03 21:25 | disposition home or self-care (01) ==
LOC: NAV ERS 16:26
DX: R07.9 Chest pain, unspecified (principal); K92.0 Hematemesis; D64.89 Other specified anemias; R10.9 Unspecified abdominal pain; I10 Essential (primary) hypertension; Z79.899 Other long term (current) drug therapy
CPT/HCPCS: 71045; 80053; 81001; 83690; 84484; 84703; 85025; 85610; 85730; 93005; 94760; 96365; 96375; J2470; J2550; J7030

== ENCOUNTER 2025-03-22 12:26 | Emergency (ER) | payer OTHER ==
[~2025-03-22 12:26] MED LIST changes: -Azithromycin 250 MG TAB ONE; +Iopamidol 370 76% 100 ML VIAL ONE; -Lidocaine 1% (PF) 30 ML VIAL ONE; -cefTRIAXone\\ROCEPHIN 250 MG VIAL ONE
[2025-03-22 13:03] LABS: #Basophils 0.3 thou/uL (0.0-0.2); #Eosinophils 0.0 thou/uL (0.0-0.7); #Lymphocytes 2.3 thou/uL (1.20-3.40); #Monocytes 0.9 thou/uL (0.11-0.59); #Neutrophils 9.0 thou/uL (1.40-6.50); %Basophils 2.5 % (0.0-1.0); %Eosinophils 0.1 % (0.0-10.0); %Lymphocytes 18.7 % (21.0-51.0); %Monocytes 6.9 % (0.0-10.0); %Neutrophils 71.8 % (42.0-75.0); Hematocrit 35.8 % (36.0-47.0); Hemoglobin 11.1 g/dL (12.0-16.0); Mean Corpuscular Hemoglobin 21.3 pg (27.0-31.0); Mean Corpuscular Volume 68.8 fl (78.0-98.0); Platelet Count 248 10x3/uL (130-400); Red Blood Cell (RBC) Count 5.21 mill/uL (4.20-5.40); White Blood Cell (WBC) Count 12.5 10x3/uL (4.8-10.8)
[2025-03-22] MEDS ORDERED: HYDROmorphone 0.5 MG/0.5 ML SYRINGE ONE ×3 (13:10→17:25)
[2025-03-22 13:21] LABS: ALT (SGPT) 27 U/L (Less than 34); AST (SGOT) 20 U/L (11-34); Albumin 3.8 g/dL (3.1-4.5); Alkaline Phosphatase 43 U/L (40-110); Anion Gap 19 mmol/L (10-20); BUN (Urea Nitrogen) 30 mg/dL (7.0-18.7); Bilirubin, Total 0.3 mg/dL (0.3-1.2); Calc. Creatinine Clearance 0 mL/min (70-130); Calcium 8.2 mg/dL (7.8-10.44); Carbon Dioxide 18 mmol/L (22-29); Chloride 103 mmol/L (98-107); Globulin 3.3 g/dL (2.4-3.5); Glucose 100 mg/dL (70-105); Lipase 112 U/L (8-78); Potassium 3.4 mmol/L (3.5-5.1); Sodium 137 mmol/L (136-145)
[2025-03-22] MEDS ORDERED: Cefepime 2 GM VIAL ONE (14:06)
[2025-03-22 14:25] LABS: Troponin I Less than 0.010 ng/mL (< 0.028)
[2025-03-22 15:15] LABS: Glucose, Urine (Dipstick) Negative (Negative); Leukocyte Negative (Negative); Protein, Urine (Dipstick) Negative (Neg-Trace); Specific Gravity, Urine 1.010 (1.005-1.030)
[2025-03-22 15:17] LABS: CAUTI Indications for Culture Pelvic or flank pain; WBC/HPF 0-3 HPF (0-3)
[2025-03-22 15:18] LABS: Urine Culture Reflex No No
== END 2025-03-22 17:44 | disposition short-term general hospital (02) ==
LOC: NAV ERS 12:26
DX: N83.202 Unspecified ovarian cyst, left side (principal); I10 Essential (primary) hypertension; Z79.899 Other long term (current) drug therapy
CPT/HCPCS: 71046; 74177; 80053; 81001; 83605; 83690; 84484; 85025; 85379; 87040; 96365; 96367; 96375; 96376; J0692; J1171; J2550; J7030; Q9967

== ENCOUNTER 2025-05-03 18:10 | Emergency (ER) | payer OTHER ==
[2025-05-03 18:54] LABS: Glucose, Urine (Dipstick) Negative (Negative); Leukocyte Trace (Negative); Protein, Urine (Dipstick) 30 mg/dL (Neg-Trace); Specific Gravity, Urine 1.020 (1.005-1.030)
[2025-05-03 19:01] LABS: CAUTI Indications for Culture Pelvic or flank pain; RBC/HPF None Seen HPF (0-3)
[2025-05-03 19:02] LABS: Bacteria/HPF 1+ HPF (None Seen); Urine Culture Reflex No No
[2025-05-03 19:03] LABS: Hematocrit 34.9 % (36.0-47.0); Hemoglobin 10.4 g/dL (12.0-16.0); Mean Corpuscular Hemoglobin 21.5 pg (27.0-31.0); Mean Corpuscular Volume 72.2 fl (78.0-98.0); Platelet Count 281 10x3/uL (130-400); Red Blood Cell (RBC) Count 4.84 mill/uL (4.20-5.40); White Blood Cell (WBC) Count 4.1 10x3/uL (4.8-10.8)
[2025-05-03 19:06] LABS: MDiff Complete? YES; Manual Diff?? YES
[2025-05-03 19:10] LABS: Platelet Adequacy Comment Appears Adequate
[2025-05-03 19:11] LABS: BHCG - Serum Negative (NEGATIVE); Pregs Control Bar Appear? YES (CONTROL BAR)
[2025-05-03 19:21] LABS: ALT (SGPT) 18 U/L (Less than 34); AST (SGOT) 31 U/L (11-34); Albumin 4.1 g/dL (3.1-4.5); Alkaline Phosphatase 48 U/L (40-110); Anion Gap 18 mmol/L (10-20); BUN (Urea Nitrogen) 12 mg/dL (7.0-18.7); Bilirubin, Total 0.3 mg/dL (0.3-1.2); Calc. Creatinine Clearance 0 mL/min (70-130); Calcium 9.1 mg/dL (7.8-10.44); Carbon Dioxide 20 mmol/L (22-29); Chloride 104 mmol/L (98-107); Globulin 3.6 g/dL (2.4-3.5); Glucose 97 mg/dL (70-105); Lipase 48 U/L (8-78); Magnesium 1.8 mg/dL (1.6-2.6); Potassium 3.7 mmol/L (3.5-5.1); Sodium 138 mmol/L (136-145)
[2025-05-03] MEDS ORDERED: HYDROmorphone 0.5 MG/0.5 ML SYRINGE ONE ×2 (19:23→21:28)
[2025-05-05 11:15] LABS: Campy jejuni + coli by PCR Negative (Negative); STEC Shiga Toxin 1+2 Negative (Negative); Salmonella spp. by PCR Negative (Negative); Shigella spp + EIEC by PCR Negative (Negative)
== END 2025-05-04 | disposition short-term general hospital (02) ==
LOC: NAV ERS 18:10
DX: K51.90 Ulcerative colitis, unspecified, without complications (principal); N83.202 Unspecified ovarian cyst, left side; R79.82 Elevated C-reactive protein (CRP); I10 Essential (primary) hypertension; Z79.899 Other long term (current) drug therapy
CPT/HCPCS: 36415; 74177; 80053; 81001; 83605; 83690; 83735; 84703; 85025; 86140; 87505; 96361; 96374; 96375; 96376; J1171; J2550; J7030

== ENCOUNTER 2025-05-10 13:40 | Emergency (ER) | payer OTHER ==
[2025-05-10 14:54] LABS: Anisocytosis MODERATE=16-30 cells (100X) (0-5/hpf); Hematocrit 33.6 % (36.0-47.0); Hemoglobin 10.1 g/dL (12.0-16.0); MDiff Complete? YES; Mean Corpuscular Hemoglobin 21.3 pg (27.0-31.0); Mean Corpuscular Volume 71.1 fl (78.0-98.0); Microcytosis SLIGHT = 6-15 cells (100X) (0-5/hpf); Platelet Count 337 10x3/uL (130-400); Red Blood Cell (RBC) Count 4.73 mill/uL (4.20-5.40); White Blood Cell (WBC) Count 5.4 10x3/uL (4.8-10.8)
[2025-05-10 15:11] LABS: ALT (SGPT) 9 U/L (Less than 34); AST (SGOT) 20 U/L (11-34); Albumin 3.6 g/dL (3.1-4.5); Alkaline Phosphatase 47 U/L (40-110); Anion Gap 18 mmol/L (10-20); BUN (Urea Nitrogen) 11 mg/dL (7.0-18.7); Bilirubin, Total 0.2 mg/dL (0.3-1.2); Calc. Creatinine Clearance 0 mL/min (70-130); Calcium 9.2 mg/dL (7.8-10.44); Carbon Dioxide 20 mmol/L (22-29); Chloride 106 mmol/L (98-107); Globulin 3.8 g/dL (2.4-3.5); Glucose 84 mg/dL (70-105); Potassium 3.6 mmol/L (3.5-5.1); Sodium 140 mmol/L (136-145)
[2025-05-10 15:16] LABS: Acetaminophen Less than 10 mcg/mL (Less than 10); Magnesium 2.0 mg/dL (1.6-2.6); Salicylate Less than 8.0 mg/dL (Less than 8.0)
[2025-05-10 15:52] LABS: Glucose, Urine (Dipstick) Negative (Negative); Leukocyte Trace (Negative); Protein, Urine (Dipstick) Negative (Neg-Trace); Specific Gravity, Urine 1.010 (1.005-1.030)
[2025-05-10 16:01] LABS: Bacteria/HPF Rare-Few HPF (None Seen); CAUTI Indications for Culture Pelvic or flank pain
[2025-05-10 16:02] LABS: Cocaine Metabolite Screen Negative (Negative); THC/Cannabinoid Screen Negative (Negative); Tricyclic Screen Negative (Negative); Urine Culture Reflex No No
== END 2025-05-10 16:50 | disposition home or self-care (01) ==
LOC: NAV ERS 13:40
DX: A09 Infectious gastroenteritis and colitis, unspecified (principal); I10 Essential (primary) hypertension; Z79.899 Other long term (current) drug therapy
CPT/HCPCS: 80053; 80306; 80307; 81001; 83605; 83735; 85025; 96374; 96375; J2550; J2919; J7030

== ENCOUNTER 2025-05-12 16:26 | Emergency (ER) | payer OTHER ==
[2025-05-12 17:52] LABS: Glucose, Urine (Dipstick) Negative (Negative); Leukocyte Negative (Negative); Protein, Urine (Dipstick) Negative (Neg-Trace); Specific Gravity, Urine Less/Equal 1.005 (1.005-1.030)
[2025-05-12 17:57] LABS: CAUTI Indications for Culture Dysuria,urgency,freq
[2025-05-12 17:58] LABS: Urine Culture Reflex No No
[2025-05-12 17:59] LABS: BHCG - Serum Negative (NEGATIVE); Pregs Control Bar Appear? YES (CONTROL BAR)
[2025-05-12 18:02] LABS: Anisocytosis MODERATE=16-30 cells (100X) (0-5/hpf); Hematocrit 29.8 % (36.0-47.0); Hemoglobin 9.1 g/dL (12.0-16.0); MDiff Complete? YES; Mean Corpuscular Hemoglobin 21.8 pg (27.0-31.0); Mean Corpuscular Volume 71.1 fl (78.0-98.0); Microcytosis MODERATE=15-30 cells (100X) (0-5/hpf); Platelet Count 348 10x3/uL (130-400); Red Blood Cell (RBC) Count 4.19 mill/uL (4.20-5.40); White Blood Cell (WBC) Count 6.8 10x3/uL (4.8-10.8)
[2025-05-12 18:06] LABS: ALT (SGPT) 16 U/L (Less than 34); AST (SGOT) 21 U/L (11-34); Albumin 3.7 g/dL (3.1-4.5); Alkaline Phosphatase 43 U/L (40-110); Anion Gap 17 mmol/L (10-20); BUN (Urea Nitrogen) 15 mg/dL (7.0-18.7); Bilirubin, Total 0.2 mg/dL (0.3-1.2); Calc. Creatinine Clearance 0 mL/min (70-130); Calcium 8.7 mg/dL (7.8-10.44); Carbon Dioxide 22 mmol/L (22-29); Chloride 105 mmol/L (98-107); Globulin 3.4 g/dL (2.4-3.5); Glucose 85 mg/dL (70-105); Lipase 51 U/L (8-78); Potassium 3.2 mmol/L (3.5-5.1); Sodium 141 mmol/L (136-145)
== END 2025-05-12 19:22 | disposition short-term general hospital (02) ==
LOC: NAV ERS 16:26
DX: R10.32 Left lower quadrant pain (principal); K92.1 Melena; A07.2 Cryptosporidiosis; R11.2 Nausea with vomiting, unspecified; D64.9 Anemia, unspecified; K51.90 Ulcerative colitis, unspecified, without complications; R35.0 Frequency of micturition; I10 Essential (primary) hypertension; Z79.899 Other long term (current) drug therapy
CPT/HCPCS: 80053; 81001; 83690; 84703; 85025; 96361; 96374; J2550; J7030